=== PATIENT | male | born 1955 | race Caucasian/White ===

== ENCOUNTER → 2016-06-30 | Outpatient (CLI) | payer SELFPAY ==
[2016-06-30 11:24] LABS: ABSOLUTE BASOPHILS # (AUTO) 0.1 10^3/uL (0.0-0.2); ABSOLUTE EOSINOPHILS # (AUTO) 0.1 10^3/uL (0.0-0.6); ABSOLUTE LYMPHOCYTES (AUTO) 2.2 10^3/uL (0.5-4.7); ABSOLUTE MONOCYTES (AUTO) 0.6 10^3/uL (0.1-1.4); ABSOLUTE NEUT (AUTO) 4.8 10^3/uL (1.7-8.2); BASOPHILS % (AUTO) 0.7 % (0-2); EOSINOPHILS % (AUTO) 1.5 % (0-6); HEMATOCRIT 40.9 % (37.9-51.0); HEMOGLOBIN 13.7 g/dL (13.5-17.0); HGB HCT DIFFERENCE 0.2; LYMPHOCYTES % (AUTO) 28.4 % (13-45); MEAN CORPUSCULAR HEMOGLOBIN 28.7 pg (27.0-33.4); MEAN CORPUSCULAR HGB CONC 33.5 g/dL (32.0-36.0); MEAN CORPUSCULAR VOLUME 86 fl (80-97); MONOCYTES % (AUTO) 7.4 % (3-13); RED BLOOD COUNT 4.77 10^6/uL (4.35-5.55); RED CELL DISTRIBUTION WIDTH 13.5 % (11.5-14.0); WHITE BLOOD COUNT 7.7 10^3/uL (4.0-10.5)
[2016-06-30 11:53] LABS: ALANINE AMINOTRANSFERASE 57 U/L (21-72); ALBUMIN 3.8 g/dL (3.5-5.0); ALKALINE PHOSPHATASE 83 U/L (38-126); ANION GAP 11 (5-19); ASPARTATE AMINO TRANSFERASE 62 U/L (17-59); BILIRUBIN,DIRECT 0.4 mg/dL (0.0-0.4); BILIRUBIN,TOTAL 0.7 mg/dL (0.2-1.3); BLOOD UREA NITROGEN 18 mg/dL (7-20); C-REACTIVE PROTEIN 11.5 mg/L (<10.0); CALCIUM 9.4 mg/dL (8.4-10.2); CARBON DIOXIDE 29 mmol/L (22-30); CHLORIDE 103 mmol/L (98-107); CHOLESTEROL 132.13 mg/dL (0-200); CREATININE RESULT 0.82 mg/dL (0.52-1.25); Direct HDL 44 mg/dL (>40); GLUCOSE 94 mg/dL (75-110); POTASSIUM 4.6 mmol/L (3.6-5.0); SODIUM 142.7 mmol/L (137-145); TOTAL PROTEIN 6.8 g/dL (6.3-8.2); TRIGLYCERIDES 90 mg/dL (<150); URIC ACID 2.4 mg/dL (3.5-8.5)
[2016-06-30 12:02] LABS: DIRECT LDL 59 mg/dL (<100)
[2016-06-30 12:41] LABS: ERYTHROCYTE SEDIMENTATION RATE 19 mm/hr (0-20)
== END ==
LOC: OD 10:36
PROVIDERS: ATTEND Family Medicine Geriatric Medicine
DX: R51 Headache (principal); M25.522 Pain in left elbow; M25.521 Pain in right elbow; I10 Essential (primary) hypertension; E78.5 Hyperlipidemia, unspecified; J44.9 Chronic obstructive pulmonary disease, unspecified
CPT/HCPCS: 36415; 70220; 80053; 80061; 84550; 85025; 85652; 86140

== ENCOUNTER 2016-07-05 20:43 | Emergency (ER) | payer MEDICAID ==
--- NOTE | 2016-07-05 23:44 | ER Document Report ---
ED Headache - General Information source: Patient, Relative - TRAVEL OUTSIDE OF THE [place] IN LAST 30 DAYS: No - HPI Patient complains to provider of: Headache Onset: Other - x1 month Timing: Worse Severity: Severe <FRANCINE ARIAS - Last Filed: 07/06/16 05:48> <KAN VIVEROS - Last Filed: 07/15/16 04:18> - General Chief Complaint: Vomiting Stated Complaint: VOMITING,HEADACHE Notes: Patient is a 61-year-old male that presents to the emergency department today with complaints of a headache. Patient states he has had the headache for approximately 1 month stating it originally was intermittent however over the last week it has been constant. Patient states he has had vomiting with this. at bedside states the patient had a decreased appetite. Patient does complain of photophobia. Patient has had a cough as well. Patient was seen by his PCP for this headache and was worked up with sinus x-rays for possible sinus infection which were negative. Patient denies any ear pain and throat pain or history of headaches, history of migraines, recent falls, or diarrhea. 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 (FRANCINE ARIAS) - Related Data Allergies/Adverse Reactions: Penicillins Allergy (Unknown, Verified 12/11/13 09:40) Past Medical History - General Information source: Patient - Social History Smoking Status: Current Every Day Smoker Cigarette use (# per day): Yes Lives with: Spouse/Significant other Family History: Reviewed & Not Pertinent - Past Medical History Cardiac Medical History: Reports: Hx Hypercholesterolemia, Hx Hypertension Neurological Medical History: Reports: Hx Cerebrovascular Accident - With residual right-sided "muscle cramps" upper and lower extremities Surgical Hx: Negative - Immunizations Hx Diphtheria, Pertussis, Tetanus Vaccination: No <FRANCINE ARIAS - Last Filed: 07/06/16 05:48> Review of Systems - Review of Systems Constitutional: No symptoms reported EENT: No symptoms reported Cardiovascular: No symptoms reported Respiratory: See HPI, Cough Gastrointestinal: See HPI, Nausea, Vomiting. denies: Diarrhea Genitourinary: No symptoms reported Male Genitourinary: No symptoms reported Musculoskeletal: No symptoms reported Skin: No symptoms reported Hematologic/Lymphatic: No symptoms reported Neurological/Psychological: See HPI, Headaches -: Yes All other systems reviewed and negative <JOSHUA ARIASON - Last Filed: 07/06/16 05:48> Physical Exam <FRANCINE ARIAS - Last Filed: 07/06/16 05:48> <KAN VIVEROS - Last Filed: 07/15/16 04:18> - Vital signs Vitals: Temp Pulse Resp BP Pulse Ox 98.4 F 78 20 126/68 H 97 07/05/16 20:50 07/05/16 20:50 07/05/16 20:50 07/05/16 20:50 07/05/16 20:50 - Notes Notes: Physical Exam: General: Alert, appears uncomfortable. HEENT: Normocephalic. Atraumatic. PERRL. Extraocular movements intact. Oropharynx clear. Complains of pain with palpation of face and scalp. Neck: Supple. Non-tender. Respiratory: No respiratory distress. Wheezing bilaterally. Cardiovascular: Regular rate and rhythm. Abdominal: Normal Inspection. Non-tender. No distension. Normal Bowel Sounds. Back: Non-tender. No deformity or step off. Extremities: Moves all four extremities. Upper extremities: Normal inspection. Normal ROM. Lower extremities: Normal inspection. No edema. Normal ROM. Neurological: Normal cognition. AAOx4. Normal speech. Positive photophobia. Psychological: Normal affect. Normal Mood. Skin: Warm. Dry. Normal color. (FRANCINE ARIAS) Course - Laboratory Result Diagrams: 07/05/16 23:00 07/05/16 23:00 <JOSHUA ARIASON - Last Filed: 07/06/16 05:48> - Laboratory Result Diagrams: 07/05/16 23:00 07/05/16 23:00 <KAN VIVEROS - Last Filed: 07/15/16 04:18> - Re-evaluation Re-evalutation: 07/06/16 00:39 Patient presents him a problem with a chief complaint of severe headaches that have been going on for a month. Positive for photophobia and increased sensation with the face. He's also had several episodes of vomiting no history of trauma he seen his outpatient primary care physician who ordered sinus x- rays which were negative and started on Bactrim. Has a history of a CVA 4 years ago with some right-sided residual deficits. No recent strokelike symptoms fever or nuchal rigidity. On examination he is awake alert GCS of 15 no neurological deficits or nuchal rigidity blood pressure stable. Laboratory evaluation acute CT scan of the head was pursued. He has 2 separate masses in his brain which the radiologist says may be primary or metastatic. He has no known history of metastatic cancer. He has a parietal lesion which is edematous and a second posterior parietal mass. I spoke with neurosurgery at 1248 who felt the patient could be transferred to the hospitalist service spoke with the hospitalist attending who accepted the transportation. I feel given the nature of the new onset the ongoing headache and the edema associated with it that he needs to be transported by helicopter which I have requested at this point. In addition to that the request for Keppra and steroids per the hospitalist will be given as well. fariha contacted at [phone] for request speak with the neurosurgeon and aeromedical transportation to the facility 07/06/16 01:06 stable no seizure activity, no neurological deficits. given decadron and keppra. signed out Dr. kwok [phone] pending transfer to [facility] (KAN VIVEROS) - Vital Signs Vital signs: Temp Pulse Resp BP Pulse Ox 98.1 F 78 16 138/79 H 98 07/06/16 06:43 07/05/16 20:50 07/06/16 07:01 07/06/16 07:01 07/06/16 07:01 - Laboratory Laboratory results interpreted by me: 07/05/16 07/05/16 23:00 23:00 WBC 11.3 H Hgb 13.1 L RDW 14.2 H Absolute Neutrophils 8.6 H BUN 24 H Glucose 117 H Calcium 10.3 H Critical Care Note - Critical Care Note Total time excluding time spent on procedures (mins): 75 <KAN VIVEROS - Last Filed: 07/15/16 04:18> Discharge <FRANCINE ARIAS - Last Filed: 07/06/16 05:48> <KAN VIVEROS - Last Filed: 07/15/16 04:18> - Discharge Clinical Impression: acute brain mass with headache Condition: Serious Disposition: TERTIARY Scribe Attestation: 07/15/16 04:17 i personally performed the services described in the documentation, reviewed the documentation recorded by the scribe in my presence and it accurately and completely records my words and actions (KAN VIVEROS) Scribe Documentation - Scribe Written by Scribe:: Sylvain Phillips, 07/06/2016 0143 acting as scribe for :: Magdiel <FRANCINE ARIAS - Last Filed: 07/06/16 05:48>
[2016-07-05] MEDS ORDERED: KETOROLAC TROMETHAMINE 60 MG/2 ML SDV IM ONE (23:52)
[2016-07-05] MEDS ORDERED: DIPHENHYDRAMINE HCL 50 MG/ML VIAL IM ONE ×2 (23:53)
[2016-07-05] MEDS ORDERED: METOCLOPRAMIDE HCL INJ/PF 10 MG/2 ML SDV IM ONE (23:54)
[2016-07-06 00:06] LABS: ABSOLUTE BASOPHILS # (AUTO) 0.1 10^3/uL (0.0-0.2); ABSOLUTE LYMPHOCYTES (AUTO) 1.8 10^3/uL (0.5-4.7); ABSOLUTE MONOCYTES (AUTO) 0.9 10^3/uL (0.1-1.4); ABSOLUTE NEUT (AUTO) 8.6 10^3/uL (1.7-8.2); BASOPHILS % (AUTO) 0.5 % (0-2); EOSINOPHILS % (AUTO) 0.4 % (0-6); HEMATOCRIT 39.1 % (37.9-51.0); HEMOGLOBIN 13.1 g/dL (13.5-17.0); HGB HCT DIFFERENCE 0.2; MEAN CORPUSCULAR HEMOGLOBIN 28.8 pg (27.0-33.4); MEAN CORPUSCULAR HGB CONC 33.4 g/dL (32.0-36.0); MEAN CORPUSCULAR VOLUME 86 fl (80-97); MONOCYTES % (AUTO) 7.6 % (3-13); RED BLOOD COUNT 4.54 10^6/uL (4.35-5.55); RED CELL DISTRIBUTION WIDTH 14.2 % (11.5-14.0); SEGMENTED NEUTROPHILS % (AUTO) 75.5 % (42-78); WHITE BLOOD COUNT 11.3 10^3/uL (4.0-10.5)
[2016-07-06 00:07] LABS: ANION GAP 15 (5-19); BLOOD UREA NITROGEN 24 mg/dL (7-20); CALCIUM 10.3 mg/dL (8.4-10.2); CARBON DIOXIDE 26 mmol/L (22-30); CHLORIDE 100 mmol/L (98-107); CREATININE RESULT 0.85 mg/dL (0.52-1.25); GLUCOSE 117 mg/dL (75-110); POTASSIUM 4.9 mmol/L (3.6-5.0); SODIUM 140.7 mmol/L (137-145)
[2016-07-06] MEDS ORDERED: KETOROLAC TROMETHAMINE INJ/PF 30 MG/1 ML SDV IV ONE (00:15)
[2016-07-06] MEDS ORDERED: DIPHENHYDRAMINE HCL 50 MG/ML VIAL IV ONE (00:15)
[2016-07-06] MEDS ORDERED: METOCLOPRAMIDE HCL INJ/PF 10 MG/2 ML SDV IV ONE (00:16)
[2016-07-06] MEDS ORDERED: DEXAMETHASONE SOD PHOS INJ 10 MG/1 ML VIAL IV ONE (01:07)
[2016-07-06] MEDS ORDERED: LEVETIRACETAM INJ/PF 500 MG/5 ML SDV IV ONE (01:07)
[2016-07-06 07:12] VITALS: BP 138/79
[2016-07-06 07:45] LABS: URINE BARBITURATES SCREEN NEGATIVE; URINE METHADONE SCREEN NEGATIVE; URINE OPIATES LOW NEGATIVE; URINE PHENCYCLIDINE SCREEN NEGATIVE
== END 2016-07-06 07:30 | disposition short-term general hospital (02) ==
LOC: ER 20:43
DX: G93.9 Disorder of brain, unspecified (principal); G93.6 Cerebral edema; R51 Headache; R11.2 Nausea with vomiting, unspecified; R63.0 Anorexia; R05 Cough; H53.149 Visual discomfort, unspecified; R20.3 Hyperesthesia; I10 Essential (primary) hypertension; I69.398 Other sequelae of cerebral infarction; M62.838 Other muscle spasm; F17.210 Nicotine dependence, cigarettes, uncomplicated; Z88.0 Allergy status to penicillin
CPT/HCPCS: 99285; 96374; 96375; 36415; 85025; 80048; 80307; 83880; 71020; 70450; J1200; J1885; J2765; J1953; J1100

== ENCOUNTER 2016-11-02 12:05 | Inpatient (IN) | payer MEDICAID ==
[2016-11-02] MEDS ORDERED: ONDANSETRON HCL INJ/PF 4 MG/2 ML SDV IV ONE (12:20)
[2016-11-02] MEDS ORDERED: HYDROMORPHONE HCL INJ/PF 2 MG/ML AMPULE IV ONE ×2 (12:20→13:13)
--- NOTE | 2016-11-02 12:21 | ER Document Report ---
ED Medical Screen (RME) - General Chief Complaint: Abdominal Pain Stated Complaint: ABDOMINAL PAIN Time Seen by Provider: 11/02/16 12:10 Mode of Arrival: Ambulatory Information source: Patient Notes: 61-year-old male history of chemo lung CA presents with complaints of right upper quadrant abdominal pain that started this morning all of a sudden. Patient denies any fevers or chills admits to nausea I have greeted and performed a rapid initial assessment of this patient. A comprehensive ED assessment and evaluation of the patient, analysis of test results and completion of the medical decision making process will be conducted by additional ED providers. PHYSICAL EXAMINATION: GENERAL: Well-appearing, well-nourished and in no acute distress. HEAD: Atraumatic, normocephalic. EYES: Pupils equal round extraocular movements intact, conjunctiva are normal. ENT: Nares patent NECK: Normal range of motion LUNGS: No respiratory distress Musculoskeletal: Normal range of motion abd: RUQ pain NEUROLOGICAL: Normal speech, normal gait. PSYCH: Normal mood, normal affect. SKIN: Warm, Dry, normal turgor, no rashes or lesions noted. TRAVEL OUTSIDE OF THE [place] IN LAST 30 DAYS: No - Related Data Allergies/Adverse Reactions: Penicillins Allergy (Unknown, Verified 11/02/16 12:15) Past Medical History - Social History Frequency of alcohol use: None Drug Abuse: None - Past Medical History Cardiac Medical History: Reports: Hx Hypercholesterolemia, Hx Hypertension Neurological Medical History: Reports: Hx Cerebrovascular Accident - With residual right-sided "muscle cramps" upper and lower extremities Renal/ Medical History: Denies: Hx Peritoneal Dialysis Surgical Hx: Negative - Immunizations Hx Diphtheria, Pertussis, Tetanus Vaccination: No Physical Exam - Vital signs Vitals: Temp Pulse Resp BP Pulse Ox 97.5 F 115 H 20 135/99 H 99 11/02/16 12:06 11/02/16 12:06 11/02/16 12:06 11/02/16 12:06 11/02/16 12:06 Course - Vital Signs Vital signs: Temp Pulse Resp BP Pulse Ox 97.5 F 115 H 20 135/99 H 99 11/02/16 12:06 11/02/16 12:06 11/02/16 12:06 11/02/16 12:06 11/02/16 12:06
[2016-11-02 13:03] LABS: HEMATOCRIT 42.5 % (37.9-51.0); HEMOGLOBIN 14.4 g/dL (13.5-17.0); HGB HCT DIFFERENCE 0.7; MEAN CORPUSCULAR HEMOGLOBIN 34.7 pg (27.0-33.4); MEAN CORPUSCULAR HGB CONC 33.8 g/dL (32.0-36.0); MEAN CORPUSCULAR VOLUME 103 fl (80-97); RED BLOOD COUNT 4.14 10^6/uL (4.35-5.55); RED CELL DISTRIBUTION WIDTH 20.7 % (11.5-14.0); WHITE BLOOD COUNT 21.5 10^3/uL (4.0-10.5)
--- NOTE | 2016-11-02 13:07 | ER Document Report ---
ED GI/ - General Chief Complaint: Abdominal Pain Stated Complaint: ABDOMINAL PAIN Time Seen by Provider: 11/02/16 12:10 Mode of Arrival: Ambulatory Notes: Patient is complaining of severe pain in the right abdomen that began about 3: 30 AM this morning and awakened him from sleep. It has been severe and constant ever since it began. He has been nauseated but has not vomited. Has not had a bowel movement for 2 days. Has not seen blood in his bowel movement. Patient denies any UTI symptoms or blood in his urine. No history of kidney stones. Does not have significant chest congestion or shortness of breath. Has not noted any fever. 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 He has received radiation treatment to his brain and lung and is currently receiving IV chemotherapy at [facility]. TRAVEL OUTSIDE OF THE [place] IN LAST 30 DAYS: No - Related Data Allergies/Adverse Reactions: Penicillins Allergy (Unknown, Verified 11/02/16 12:15) Past Medical History - General Information source: Patient - Social History Smoking Status: Current Every Day Smoker Cigarette use (# per day): Yes Frequency of alcohol use: None Drug Abuse: None Family History: Reviewed & Not Pertinent Patient has suicidal ideation: No Patient has homicidal ideation: No - Past Medical History Cardiac Medical History: Reports: Hx Hypercholesterolemia, Hx Hypertension Denies: Hx Coronary Artery Disease, Hx Heart Attack Neurological Medical History: Reports: Hx Cerebrovascular Accident - With residual right-sided "muscle cramps" upper and lower extremities Endocrine Medical History: Denies: Hx Diabetes Mellitus Type 1, Hx Diabetes Mellitus Type 2 Malignancy Medical History: Reports Hx Lung Cancer - With metastases to brain. GI Medical History: Reports: None Surgical Hx: Negative - Immunizations Hx Diphtheria, Pertussis, Tetanus Vaccination: No Review of Systems - Review of Systems Notes: REVIEW OF SYSTEMS: CONSTITUTIONAL : Denies fever. EENT: Denies eye, ear, nose or mouth or throat pain or other symptoms. CARDIOVASCULAR: Denies chest pain. RESPIRATORY: Denies cough, chest congestion, or shortness of breath. GASTROINTESTINAL: Current complaint of pain in the right abdomen. Denies vomiting, or diarrhea. Has some nausea. GENITOURINARY: Denies difficulty or painful urinating, urinary frequency, blood in urine. MUSCULOSKELETAL: Denies back or neck pain. Denies joint pain or swelling. SKIN: Denies rash or skin lesions. NEUROLOGICAL: Denies LOC or altered mental status. Denies headache. Denies sensory loss or motor deficits. ALL OTHER SYSTEMS REVIEWED AND NEGATIVE. Physical Exam - Vital signs Vitals: Temp Pulse Resp BP Pulse Ox 97.5 F 115 H 20 135/99 H 99 11/02/16 12:06 11/02/16 12:06 11/02/16 12:06 11/02/16 12:06 11/02/16 12:06 Interpretation: Tachycardic - At 115 - Notes Notes: PHYSICAL EXAMINATION: GENERAL: Well-appearing, appears to be in pain. HEAD: Atraumatic, normocephalic. ENT: oropharynx clear without exudates. Moist mucous membranes. NECK: Normal range of motion, supple. LUNGS: Breath sounds sound decreased in the right base. Clear on the left HEART: Regular rate and rhythm without murmurs. ABDOMEN: Patient points to the entire right abdomen as the location of his abdominal pain, but points to the right lower quadrant nearly at McBurney's point when asked to point with only one finger. No guarding or rebound. No masses felt. No bruits heard. BACK: No tenderness throughout entire back. EXTREMITIES: Normal range of motion without pain. NEUROLOGICAL: Normal speech, normal gait. Normal sensory, motor, and reflex exams. Awake, alert, and oriented x3. Cranial nerves normal. PSYCH: Normal mood, normal affect. SKIN: Warm, dry, no rashes. Course - Re-evaluation Re-evalutation: 11/02/16 18:[address] Rangel, surgeon cargo operations agent, and he will be taking the patient to the OR for a bowel perforation. - Vital Signs Vital signs: Temp Pulse Resp BP Pulse Ox 97.5 F 115 H 20 135/99 H 99 11/02/16 12:06 11/02/16 12:06 11/02/16 12:06 11/02/16 12:06 11/02/16 12:06 - Laboratory Result Diagrams: 11/02/16 12:35 11/02/16 12:35 Laboratory results interpreted by me: 11/02/16 11/02/16 12:35 12:35 WBC 21.5 H RBC 4.14 L MCV 103 H MCH 34.7 H RDW 20.7 H Band Neutrophils % 15 H Lymphocytes % (Manual) 6 L Metamyelocytes % 2 H Abs Neuts (Manual) 19.6 H Chloride 97 L BUN 41 H Glucose 143 H Total Protein 5.9 L - Diagnostic Test Radiology reviewed: Image reviewed, Reports reviewed - CT scan of the abdomen and pelvis reveal a bowel perforation with a large collection of gas in the abdomen. Critical Care Note - Critical Care Note Total time excluding time spent on procedures (mins): 60 Discharge - Discharge Clinical Impression: Perforated bowel Condition: Serious Disposition: ADMITTED INPATIENT Admitting Provider: Surgicalist Unit Admitted: OR
[2016-11-02 13:12] LABS: ALANINE AMINOTRANSFERASE 50 U/L (21-72); ALBUMIN 3.8 g/dL (3.5-5.0); ALKALINE PHOSPHATASE 76 U/L (38-126); ANION GAP 14 (5-19); ASPARTATE AMINO TRANSFERASE 37 U/L (17-59); BILIRUBIN,DIRECT 0.4 mg/dL (0.0-0.4); BILIRUBIN,TOTAL 0.5 mg/dL (0.2-1.3); BLOOD UREA NITROGEN 41 mg/dL (7-20); CALCIUM 9.2 mg/dL (8.4-10.2); CARBON DIOXIDE 27 mmol/L (22-30); CHLORIDE 97 mmol/L (98-107); CREATININE RESULT 0.72 mg/dL (0.52-1.25); GLUCOSE 143 mg/dL (75-110); LIPASE 214.9 U/L (23-300); POTASSIUM 4.4 mmol/L (3.6-5.0); SODIUM 137.6 mmol/L (137-145); TOTAL PROTEIN 5.9 g/dL (6.3-8.2)
[2016-11-02] MEDS ORDERED: KETOROLAC TROMETHAMINE INJ/PF 30 MG/1 ML SDV IV ONE (13:13)
[2016-11-02 13:28] LABS: BASOPHILS % (MANUAL) 0 % (0-2); EOSINOPHILS % (MANUAL) 0 % (0-6); LYMPHOCYTES % (MANUAL) 6 % (13-45); TOTAL CELLS COUNTED 100
[2016-11-02 13:29] LABS: ANISOCYTOSIS 2+; POIKILOCYTOSIS SLIGHT; TEAR DROP CELLS SLIGHT
[2016-11-02 13:30] LABS: BAND NEUTROPHILS % (MANUAL) 15 % (3-5); NUCLEATED RED BLOOD CELLS 6 /100 WBC (0)
[2016-11-02] MEDS ORDERED: SUCCINYLCHOLINE CHLORIDE INJ 200 MG/10 ML VIAL ONE (13:37)
[2016-11-02] MEDS ORDERED: VECURONIUM BROMIDE INJ 10 MG VIAL IV ONE (13:37)
[2016-11-02] MEDS ORDERED: LIDOCAINE 2% INJ-PF (20 MG/ML) 10 ML AMPUL ONE ×2 (13:37→18:46)
--- NOTE | 2016-11-02 17:38 | RADIOLOGY REPORT (SQ) ---
EXAM DESCRIPTION: CHEST PA/LAT COMPLETED DATE/TIME: 11/02/2016 5:27 pm REASON FOR STUDY: Lung cancer and short of breath COMPARISON: 07/06/2016. EXAM PARAMETERS: NUMBER OF VIEWS: two views TECHNIQUE: Digital Frontal and Lateral radiographic views of the chest acquired. RADIATION DOSE: NA LIMITATIONS: none FINDINGS: LUNGS AND PLEURA: Right infrahilar mass relatively unchanged. No infiltrates. No pleural effusion or pneumothorax. MEDIASTINUM AND HILAR STRUCTURES: No masses or contour abnormalities. HEART AND VASCULAR STRUCTURES: Heart normal size. No evidence for failure. BONES: No acute findings. HARDWARE: None in the chest. OTHER: No other significant finding. IMPRESSION: NO ACUTE FINDINGS. RIGHT INFRAHILAR MASS APPEARS RELATIVELY UNCHANGED. TECHNICAL DOCUMENTATION: JOB ID: [id number] [employer]- All Rights Reserved
--- NOTE | 2016-11-02 18:15 | RADIOLOGY REPORT (SQ) ---
EXAM DESCRIPTION: CT ABD/PELVIS WITH IV ORAL COMPLETED DATE/TIME: 11/02/2016 5:57 pm REASON FOR STUDY: RLQ pain, Hx right lung CA with brain metastases COMPARISON: None. TECHNIQUE: CT scan of the abdomen and pelvis performed with intravenous and oral contrast using arline erik scanning technique with dynamic intravenous contrast injection. Images reviewed with lung, soft t issue, and bone windows. Reconstructed coronal and sagittal MPR images reviewed. Delayed images for e valuation of the urinary system also acquired. All images stored on PACS. All CT scanners at this facility use dose modulation, iterative reconstruction, and/or weight based d osing when appropriate to reduce radiation dose to as low as reasonably achievable (ALARA). [facility]: Dose Right [facility]: CareDose [facility]: Dose Right [facility]: Teradose 4D [facility]: [place] CONTRAST TYPE AND DOSE: contrast/concentration: Isovue 370.00 mg/ml; Total Contrast Delivered: 66.0 ml; Total Saline Delivered: 65.0 ml RENAL FUNCTION: Creatinine 0.72. RADIATION DOSE: Up-to-date CT equipment and radiation dose reduction techniques were employed. CTDIv ol: 5.2 - 6.8 mGy. DLP: 623 mGy-cm.. LIMITATIONS: None. FINDINGS: LOWER CHEST: Mass in the infrahilar right lung. LIVER: Normal size. No masses. No dilated ducts. SPLEEN: Normal size. No focal lesions. PANCREAS: No masses. No significant calcifications. No adjacent inflammation or peripancreatic fluid collections. Pancreatic duct not dilated. GALLBLADDER: No identified stones by CT criteria. No inflammatory changes to suggest cholecystitis. ADRENAL GLANDS: No significant masses or asymmetry. RIGHT KIDNEY AND URETER: No solid masses. No significant calcification. No hydronephrosis or hydroure ter. LEFT KIDNEY AND URETER: No solid masses. No significant calcification. No hydronephrosis or hydrouret er. AORTA AND VESSELS: No aneurysm. No dissection. Renal arteries, SMA, celiac without stenosis. RETROPERITONEUM: No retroperitoneal adenopathy, hemorrhage or masses. BOWEL AND PERITONEAL CAVITY: Fairly large amount free air in the abdomen as well of some free fluid p rimarily in the upper abdomen and deep and pelvis. No obstruction. No visualized masses. No inflamm atory changes or thickening of bowel wall. APPENDIX: Not visualized. PELVIS: No significant masses. Normal bladder. No free fluid. ABDOMINAL WALL: No masses. No hernias. BONES: No significant or acute findings. OTHER: No other significant finding. IMPRESSION: 1. FREE AIR AND FREE FLUID IN THE ABDOMEN CONSISTENT WITH A PERFORATED VISCUS. NO OBVIOUS SOURCE RADHA ARENT. NO OTHER SIGNIFICANT FINDINGS IN THE ABDOMEN OR PELVIS. 2. MASS IN THE INFRAHILAR RIGHT LUNG SECONDARY TO KNOWN MALIGNANCY. COMMENT: Pertinent findings on the imaging study reported as a CRITICAL RESULT to PARMINDER SANCHEZ MD at18:08 on 11/02/2016. Category of Critical Result: Free intraperitoneal air. TECHNICAL DOCUMENTATION: JOB ID: [id number] Quality ID # [id number]: Final reports with documentation of one or more dose reduction techniques (e.g., Au tomated exposure control, adjustment of the mA and/or kV according to patient size, use of iterative reconstruction technique) 2010 [employer]- All Rights Reserved
[2016-11-02] MEDS ORDERED: FENTANYL CITRATE INJ/PF 250 MCG/5 ML AMPULE ONE (18:46)
[2016-11-02] MEDS ORDERED: PROPOFOL INJ 200 MG/20 ML VIAL IV ONE (18:47)
[2016-11-02] MEDS ORDERED: ONDANSETRON HCL INJ/PF 4 MG/2 ML SDV ONE (18:47)
[2016-11-02] MEDS ORDERED: MIDAZOLAM 2 MG/2 ML INJ ONE ×2 (18:47→20:13)
[2016-11-02] MEDS ORDERED: ACETAMINOPHEN 100 ML IV ONE (18:47)
[2016-11-02] MEDS ORDERED: METRONIDAZOLE 500 MG/NS RTU 100 ML IV ONE (19:21)
[2016-11-02] MEDS ORDERED: CIPROFLOXACIN 400 MG/D5W RTU 400 MG/200 ML RTUPB IV ONE (19:21)
[2016-11-02] MEDS ORDERED: DEXAMETHASONE SOD PHOSPHATE INJ 4 MG/1 ML VIAL ONE (20:26)
--- NOTE | 2016-11-02 20:32 | HISTORY AND PHYSICAL E ---
History and Physical NAME: ROXANNE BACH : 1955 AGE: 61Y ADMITTED: 11/02/2016 ROOM: ED12 CHIEF COMPLAINT: Abdominal pain. HISTORY OF PRESENT ILLNESS: This is a 61-year-old male with a known history of lung CA with mets to the brain, complained of abdominal pain around 3:30 this morning, waking him up. The pain persisted and associated with nausea and went to the emergency room where a CAT scan of the abdomen revealed free air and fluid in the pelvis. No definite source of the perforation was identified. PAST HISTORY: 1. The patient diagnosed with lung CA with brain mets about 3-4 months ago. He had radiation therapy to the brain and undergoing chemotherapy care of [facility]. 2. Cardiac medical history, reports hypercholesterolemia and hypertension. 3. Neurologic history, history of CVA with right-sided muscle cramps in the upper and lower extremities. 4. Endocrine history, denies diabetes mellitus. 5. Malignancy, history of lung cancer with mets to the brain. 6. GI history, reports none. PAST SURGICAL HISTORY: Negative. ALLERGIES: PENICILLIN. REVIEW OF SYSTEMS: Constitutional: Denies any fever. ENT: Denies eye, ear, nose, mouth or throat pain or other symptoms. Cardiovascular: Denies chest pain. Respiratory: Denies cough, chest congestion or shortness of breath. Gastrointestinal: Currently complains of pain in the right side of the abdomen, denies any vomiting but admits to having nausea. Genitourinary: Denies difficulty or painful urination. Musculoskeletal: Denies neck or back pain. Skin: Denies rash or skin lesion. Neurologic: Denies loss of consciousness or altered mental status. All other systems were reviewed and are negative. FAMILY HISTORY: Noncontributory. SOCIAL HISTORY: The patient is a smoker. Denies alcohol or recreational drug use. PHYSICAL EXAMINATION: GENERAL: A well-developed, well-nourished 61-year-old male, alert and oriented, complaining of abdominal pains. HEENT: Neck is supple, no thyromegaly. LUNGS: Clear. HEART: Regular sinus rhythm. ABDOMEN: Soft with tenderness in the right upper quadrant and more tender in the right lower quadrant. EXTREMITIES: No edema. NEUROLOGIC: The patient has normal speech and oriented x3. PSYCHIATRIC: Normal mood and affect. SKIN: Warm and dry. No rashes. IMPRESSION: 1. Perforated bowel. 2. 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 PLAN: 1. Hydrate and start IV antibiotics. 2. For exploratory laparotomy, repair of perforation, possible bowel resection, possible colostomy. DICTATING PHYSICIAN: ONEIDA DANG M.D. [id number] PHY#: [id number] ID: [id number] JOB#: [id number] ACCT: [id number] cc:ONEIDA DANG M.D. > MTDD
[2016-11-02] MEDS ORDERED: ONDANSETRON HCL INJ/PF 4 MG/2 ML SDV IV PRN ×2 (21:01→21:56)
[2016-11-02] MEDS ORDERED: MORPHINE SULFATE 10 MG/ML INJ IV PRN (21:01)
[2016-11-02] MEDS ORDERED: OXYCODONE-ACETAMINOPHEN 5-325 MG TABLET PO PRN ×2 (21:01)
[2016-11-02] MEDS ORDERED: MEPERIDINE HCL/PF INJ 25 MG/1 ML DISP.SYRIN IV PRN (21:01)
[2016-11-02] MEDS ORDERED: PROMETHAZINE HCL INJ 25 MG/1 ML VIAL IV PRN ×2 (21:01)
[2016-11-02] MEDS ORDERED: FENTANYL CITRATE INJ/PF 100 MCG/2 ML AMPUL IV PRN ×3 (21:01)
[2016-11-02] MEDS ORDERED: DIPHENHYDRAMINE HCL 50 MG/ML VIAL IV PRN (21:01)
[2016-11-02] MEDS ORDERED: DEXTROSE 40% GEL 15 GM TUBE PO PRN ×2 (21:56)
[2016-11-02] MEDS ORDERED: GLUCAGON,HUMAN RECOMB 1 MG INJ SUBCUT PRN (21:56)
[2016-11-02] MEDS ORDERED: DEXTROSE 50%-WATER 25 GM/50 ML DISP.SYRIN IV PRN ×2 (21:56)
[2016-11-02] MEDS ORDERED: PHARMACY COMMUNICATION ORDER MC NR (22:00)
[2016-11-02] MEDS ORDERED: PROPOFOL 100 ML IV ONE (22:19)
--- NOTE | 2016-11-02 22:24 | RADIOLOGY REPORT (SQ) ---
EXAM DESCRIPTION: CHEST SINGLE VIEW COMPLETED DATE/TIME: 11/02/2016 10:17 pm REASON FOR STUDY: endotracheal tube placement COMPARISON: 11/02/2016. EXAM PARAMETERS: NUMBER OF VIEWS: One view. TECHNIQUE: Single frontal radiographic view of the chest acquired. RADIATION DOSE: NA LIMITATIONS: None. FINDINGS: LUNGS AND PLEURA: No opacities, masses or pneumothorax. No pleural effusion. MEDIASTINUM AND HILAR STRUCTURES: No masses. Contour normal. HEART AND VASCULAR STRUCTURES: Heart normal in size. Normal vasculature. BONES: No acute findings. HARDWARE: Endotracheal tube with the tip located 3 cm proximal to the lópez. Nasogastric tube with the tip in the stomach. OTHER: No other significant finding. IMPRESSION: SUPPORT DEVICES IN SATISFACTORY POSITION. NO ACUTE RADIOGRAPHIC FINDING IN THE CHEST. TECHNICAL DOCUMENTATION: JOB ID: [id number]
[2016-11-02] MEDS ORDERED: DEXTROSE 40% GEL 15 GM TUBE NG PRN ×2 (22:30)
--- NOTE | 2016-11-02 22:59 | RADIOLOGY REPORT (SQ) ---
EXAM DESCRIPTION: KUB/ABDOMEN (SINGLE VIEW) COMPLETED DATE/TIME: 11/02/2016 10:47 pm REASON FOR STUDY: Check Placement of NG Tube COMPARISON: None. NUMBER OF VIEWS: One view. TECHNIQUE: Supine radiographic image of the abdomen acquired. LIMITATIONS: None. FINDINGS: BOWEL GAS PATTERN: Normal bowel gas pattern. Residual CT contrast. No dilated loops. CALCIFICATIONS: No suspicious calcifications. SOFT TISSUES: No gross mass or suggestion of organomegaly. HARDWARE: Nasogastric tube with the tip in the distal stomach. Midline skin soha. BONES: No acute fracture. No worrisome bone lesions. OTHER: No other significant finding. IMPRESSION: NASOGASTRIC TUBE WITH THE TIP IN THE DISTAL STOMACH. NO RADIOGRAPHIC EVIDENCE FOR ACUTE ABDOMINAL DISEASE. TECHNICAL DOCUMENTATION: JOB ID: [id number] [employer]- All Rights Reserved
[2016-11-02] MEDS: MORPHINE SULFATE 10 MG/ML INJ IV PRN (23:07)
[2016-11-02] MEDS: NORMAL SALINE 1000 ML 1,000 ML IV PRN (23:08)
--- NOTE | 2016-11-02 23:31 | EKG REPORT ---
SEVERITY:- BORDERLINE ECG - SINUS RHYTHM BORDERLINE INFERIOR Q WAVES : Confirmed by: Zuleyma Casillas 02-Nov-2016 23:29:55
[2016-11-03] MEDS: PANTOPRAZOLE SODIUM 40 MG VIAL IV SCH ×3 (01:48→21:05)
--- NOTE | 2016-11-03 02:07 | OPERATIVE REPORT E ---
Operative Report NAME: ROXANNE BACH : 1955 AGE: 61Y DATE OF SURGERY: 11/02/2016 ROOM: 603 PREOPERATIVE DIAGNOSIS: Perforated bowel. POSTOPERATIVE DIAGNOSIS: Perforated gastric ulcer. PROCEDURE PERFORMED: Repair of perforated gastric ulcer with omental patch. SURGEON: ONEIDA DANG M.D. ANESTHESIA: General. 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 with right-sided abdominal pains. CT scan of the abdomen in the ER revealed perforated bowel but unable to localize the possible site. Patient was tender in the right upper quadrant and the right lower quadrant. DESCRIPTION OF PROCEDURE: After adequate general anesthesia, the abdomen was then prepped and draped in the usual sterile fashion. The patient was placed in supine position. After appropriate timeout, a midline incision was made just below the umbilicus. The abdominal cavity was then entered. There was a small amount of air that extruded out, as well as a lot of fluid, somewhat cloudy. On exploration, there appeared to be a perforation on the cephalic portion of the gastric area, close to the pylorus and close to the liver. The perforation roughly measured about 8 mm. Three sutures of 2-0 silk were placed to close the perforation. Following this, the abdominal cavity was irrigated with at least 8 L of saline until the return flow was clear. The small bowel was then tracked from the ileum up to the ligament of Treitz, and noted to be intact. There was some exudates along the ileum that were partially mechanically removed. The bowel does not look dilated. Also, the omentum was adherent to the sigmoid colon with a single band, and then this was divided with cautery, allowing the omentum to be pulled up over the repaired site. The omentum was subsequently used as a patch over the repaired perforation site, anchoring the omentum surrounding the perforation with 2-0 Vicryl sutures, placing about 7 or 8. This was made sure that the defect in the omentum and the stomach was partially closed, preventing any internal herniation. Also at the same time, the NG tube was positioned just above the perforation. The rest of the bowel was intact. Large bowel noted to be normal except for a large amount of firm feces. The gallbladder appeared to be normal but a slightly thickened wall since it is close to the perforation. The liver appears to be just slightly firm, possible start of cirrhosis. Following this, the fascia was then closed with running suture using #1 PDS, starting on both ends and meeting and tying them together just above the umbilicus. The skin was then closed with soha. Needle, instrument, and sponge counts were all correct. Estimated blood loss was about 100 mL. Sterile dressings were placed over the operative site. Patient then brought to the intensive care unit, still intubated, in guarded condition. DICTATING PHYSICIAN: ONEIDA DANG M.D. [id number] PHY#: [id number] ID: [id number] JOB#: [id number] ACCT: [id number] cc:ONEIDA DANG M.D. > MTDD
[2016-11-03] MEDS ORDERED: PROPOFOL 100 ML IV ONE (04:15)
[2016-11-03] MEDS: MORPHINE SULFATE 10 MG/ML INJ IV PRN ×4 (04:30→17:43)
[2016-11-03] MEDS: PROPOFOL 100 ML IV PRN ×3 (04:33→15:14)
[2016-11-03] MEDS: METRONIDAZOLE 500 MG/NS RTU 100 ML IV SCH ×3 (05:57→22:17)
[2016-11-03 06:18] LABS: ANION GAP 6 (5-19); BLOOD UREA NITROGEN 39 mg/dL (7-20); CALCIUM 7.9 mg/dL (8.4-10.2); CARBON DIOXIDE 26 mmol/L (22-30); CHLORIDE 102 mmol/L (98-107); CREATININE RESULT 0.56 mg/dL (0.52-1.25); GLUCOSE 118 mg/dL (75-110); SODIUM 133.6 mmol/L (137-145)
[2016-11-03 06:22] LABS: HEMATOCRIT 34.2 % (37.9-51.0); HGB HCT DIFFERENCE 0.6; MEAN CORPUSCULAR HGB CONC 33.9 g/dL (32.0-36.0); MEAN CORPUSCULAR VOLUME 103 fl (80-97); RED BLOOD COUNT 3.32 10^6/uL (4.35-5.55); RED CELL DISTRIBUTION WIDTH 20.2 % (11.5-14.0); WHITE BLOOD COUNT 11.1 10^3/uL (4.0-10.5)
[2016-11-03 06:23] LABS: HEMOGLOBIN 11.6 g/dL (13.5-17.0)
[2016-11-03 06:28] LABS: BAND NEUTROPHILS % (MANUAL) 22 % (3-5); BASOPHILS % (MANUAL) 0 % (0-2); EOSINOPHILS % (MANUAL) 0 % (0-6); LYMPHOCYTES % (MANUAL) 6 % (13-45); TOTAL CELLS COUNTED 100
[2016-11-03 06:31] LABS: TOXIC GRANULATION 1+; TOXIC VACUOLATION PRESENT
[2016-11-03 06:32] LABS: ANISOCYTOSIS 2+; BURR CELLS 1+; OVALOCYTES 1+; POIKILOCYTOSIS 1+; POLYCHROMASIA SLIGHT; TEAR DROP CELLS SLIGHT
[2016-11-03 06:33] LABS: PLATELET CLUMPS PRESENT
[2016-11-03 07:38] LABS: ARTERIAL BLOOD BASE EXCESS -1.3 mmol/L; ARTERIAL BLOOD O2 SATURATION 97.7 % (94-98)
--- NOTE | 2016-11-03 09:44 | PDOC CONSULTATION ---
Consultation Consult Date: 11/03/16 Attending physician:: ONEIDA DANG Consult reason:: resp failure History of Present Illness Admission Date/PCP: 11/02/16 21:56 History of Present Illness: all information from chart as patient intubated no family at bedside.ROXANNE BACH is a 61 year old male presented with abdominal pain now s/p repair of perforated viscous;he has 80 pyhx and was recently diagnosed with lung cancer with brain mets.He was reportedly having increased confusion. Past Medical History Cardiac Medical History: Reports: Hyperlipidema, Hypertension Denies: Coronary Artery Disease, Myocardial Infarction Endocrine Medical History: Denies: Diabetes Mellitus Type 1, Diabetes Mellitus Type 2 Malignancy Medical History: Reports: Lung Cancer - With metastases to brain. GI Medical History: Reports: None Social History Information Source: [facility] Records Smoking Status: Current Every Day Smoker Cigarettes Packs Per Day: 2 Number of Years Smokin Frequency of Alcohol Use: Social Hx Recreational Drug Use: No Drugs: Marijuana - Advance Directive Resuscitation Status: Full Code Family History Family History: Reviewed & Not Pertinent Parental Family History Reviewed: No Children Family History Reviewed: No Sibling(s) Family History Reviewed.: No Medication/Allergy Home Medications: Dexamethasone 4 mg PO ASDIR PRN 11/03/16 Fludrocortisone Acetate [Florinef 0.1 mg Tablet] 0.1 mg PO DAILY 11/03/16 Gabapentin [Neurontin] 600 mg PO BID 11/03/16 Hydromorphone HCl [Dilaudid] 4 mg PO Q3H PRN 11/03/16 Naproxen 500 mg PO Q12H PRN 11/03/16 Pravastatin Sodium 20 mg PO QHS 11/03/16 Prochlorperazine Maleate [Compazine 10 mg Tablet] 10 mg PO Q6H PRN 11/03/16 Tiotropium [place] [Spiriva Handihaler 18 mcg/dose (30 Dose)] 1 cap IH DAILY 06/16 Allergies/Adverse Reactions: Penicillins Allergy (Unknown, Verified 11/02/16 12:15) Review of Systems ROS unobtainable: Due to endotracheal tube Physical Exam Vital Signs: Temp Pulse Resp BP Pulse Ox 97.9 F 57 L 12 130/81 H 100 11/03/16 07:46 11/03/16 07:48 11/03/16 07:46 11/03/16 07:46 11/03/16 08:00 Intake & Output 11/02/16 11/03/16 11/04/16 06:59 06:59 06:59 Intake Total 1110 Output Total 615 75 Balance 495 -75 Weight 62.9 kg General appearance: PRESENT: no acute distress, disheveled, thin, well-developed Head exam: PRESENT: atraumatic, normocephalic Eye exam: PRESENT: conjunctiva pale Mouth exam: PRESENT: dry mucosa, neck supple, tongue midline, other - ET tube in place Neck exam: ABSENT: carotid bruit, JVD, lymphadenopathy, thyromegaly Respiratory exam: PRESENT: decreased breath sounds, prolonged expiratory phas, rhonchi, symmetrical. ABSENT: crackles, rales, retraction, stridor, tachypnea, unlabored, wheezes Cardiovascular exam: PRESENT: RRR, +S1, +S2. ABSENT: bradycardia, irregular rhythm, tachycardia Pulses: PRESENT: normal radial pulses GI/Abdominal exam: PRESENT: other - midline surgical scar Rectal exam: PRESENT: deferred Gentrourinary exam: PRESENT: indwelling catheter Musculoskeletal exam: PRESENT: normal inspection Skin exam: PRESENT: dry, warm Results Laboratory Results: 11/03/16 05:27 11/03/16 05:27 11/03/16 11/03/16 11/03/16 05:27 05:27 05:27 WBC 11.1 H RBC 3.32 L Hgb 11.6 L D Hct 34.2 L MCV 103 H MCH 35.0 H MCHC 33.9 RDW 20.2 H Plt Count 176 Seg Neutrophils % Not Reportable Lymphocytes % Not Reportable Monocytes % Not Reportable Eosinophils % Not Reportable Basophils % Not Reportable Absolute Neutrophils Not Reportable Absolute Lymphocytes Not Reportable Absolute Monocytes Not Reportable Absolute Eosinophils Not Reportable Absolute Basophils Not Reportable Carbonic Acid HCO3/H2CO3 Ratio ABG pH ABG pCO2 ABG pO2 ABG HCO3 ABG O2 Saturation ABG Base Excess FiO2 Sodium 133.6 L Potassium 5.0 Chloride 102 Carbon Dioxide 26 Anion Gap 6 BUN 39 H Creatinine 0.56 Est GFR ( Amer) > 60 Est GFR (Non-Af Amer) > 60 Glucose 118 H Calcium 7.9 L Magnesium 3.2 H 11/03/16 07:25 WBC RBC Hgb Hct MCV MCH MCHC RDW Plt Count Seg Neutrophils % Lymphocytes % Monocytes % Eosinophils % Basophils % Absolute Neutrophils Absolute Lymphocytes Absolute Monocytes Absolute Eosinophils Absolute Basophils Carbonic Acid 0.95 L HCO3/H2CO3 Ratio 22:1 ABG pH 7.46 H ABG pCO2 31.7 L ABG pO2 96.5 ABG HCO3 21.8 ABG O2 Saturation 97.7 ABG Base Excess -1.3 FiO2 50% Sodium Potassium Chloride Carbon Dioxide Anion Gap BUN Creatinine Est GFR ( Amer) Est GFR (Non-Af Amer) Glucose Calcium Magnesium Impressions: Abdomen/Pelvis CT 11/02/16 00:00 IMPRESSION: 1. FREE AIR AND FREE FLUID IN THE ABDOMEN CONSISTENT WITH A PERFORATED VISCUS. NO OBVIOUS SOURCE APPARENT. NO OTHER SIGNIFICANT FINDINGS IN THE ABDOMEN OR PELVIS. 2. MASS IN THE INFRAHILAR RIGHT LUNG SECONDARY TO KNOWN MALIGNANCY. KUB X-Ray 11/02/16 22:00 IMPRESSION: NASOGASTRIC TUBE WITH THE TIP IN THE DISTAL STOMACH. NO RADIOGRAPHIC EVIDENCE FOR ACUTE ABDOMINAL DISEASE. Chest X-Ray 11/02/16 22:04 IMPRESSION: SUPPORT DEVICES IN SATISFACTORY POSITION. NO ACUTE RADIOGRAPHIC FINDING IN THE CHEST. Assessment & Plan - Diagnosis (1) Pulmonary emphysema Qualifiers: Emphysema type: centrilobular Qualified Code(s): J43.2 - Centrilobular emphysema Is this a current diagnosis for this admission?: Yes (2) Brain lesion Is this a current diagnosis for this admission?: Yes (3) Perforated bowel Is this a current diagnosis for this admission?: Yes - Time Critical Time spent with patient: 35 or more minutes - 55 min
[2016-11-03] MEDS: CIPROFLOXACIN 400 MG/D5W RTU 400 MG/200 ML RTUPB IV SCH ×2 (10:50→21:06)
[2016-11-03] MEDS: NORMAL SALINE 1000 ML 1,000 ML IV PRN (11:42)
--- NOTE | 2016-11-03 12:06 | PDOC PROGRESS REPORT ---
Subjective Progress Note for:: 11/03/16 Subjective:: Patient tolerated his first not post surgery in the ICU, intubated, sedated, hemodynamically stable, decent urine output. Physical Exam Vital Signs: Temp Pulse Resp BP Pulse Ox 97.7 F 72 22 H 111/70 100 11/03/16 10:00 11/03/16 10:00 11/03/16 10:00 11/03/16 10:00 11/03/16 11:48 Intake & Output 11/02/16 11/03/16 11/04/16 06:59 06:59 06:59 Intake Total 1110 Output Total 615 185 Balance 495 -185 Weight 62.9 kg General appearance: PRESENT: no acute distress - Pharmacologically sedated. Respiratory exam: PRESENT: other - Some rhonchi bilaterally GI/Abdominal exam: PRESENT: other - Dressing dry, intact, no leakage Results Laboratory Results: 11/03/16 05:27 11/03/16 05:27 11/03/16 11/03/16 11/03/16 05:27 05:27 05:27 WBC 11.1 H RBC 3.32 L Hgb 11.6 L D Hct 34.2 L MCV 103 H MCH 35.0 H MCHC 33.9 RDW 20.2 H Plt Count 176 Seg Neutrophils % Not Reportable Lymphocytes % Not Reportable Monocytes % Not Reportable Eosinophils % Not Reportable Basophils % Not Reportable Absolute Neutrophils Not Reportable Absolute Lymphocytes Not Reportable Absolute Monocytes Not Reportable Absolute Eosinophils Not Reportable Absolute Basophils Not Reportable Carbonic Acid HCO3/H2CO3 Ratio ABG pH ABG pCO2 ABG pO2 ABG HCO3 ABG O2 Saturation ABG Base Excess FiO2 Sodium 133.6 L Potassium 5.0 Chloride 102 Carbon Dioxide 26 Anion Gap 6 BUN 39 H Creatinine 0.56 Est GFR ( Amer) > 60 Est GFR (Non-Af Amer) > 60 Glucose 118 H Calcium 7.9 L Magnesium 3.2 H 11/03/16 07:25 WBC RBC Hgb Hct MCV MCH MCHC RDW Plt Count Seg Neutrophils % Lymphocytes % Monocytes % Eosinophils % Basophils % Absolute Neutrophils Absolute Lymphocytes Absolute Monocytes Absolute Eosinophils Absolute Basophils Carbonic Acid 0.95 L HCO3/H2CO3 Ratio 22:1 ABG pH 7.46 H ABG pCO2 31.7 L ABG pO2 96.5 ABG HCO3 21.8 ABG O2 Saturation 97.7 ABG Base Excess -1.3 FiO2 50% Sodium Potassium Chloride Carbon Dioxide Anion Gap BUN Creatinine Est GFR ( Amer) Est GFR (Non-Af Amer) Glucose Calcium Magnesium Impressions: Abdomen/Pelvis CT 11/02/16 00:00 IMPRESSION: 1. FREE AIR AND FREE FLUID IN THE ABDOMEN CONSISTENT WITH A PERFORATED VISCUS. NO OBVIOUS SOURCE APPARENT. NO OTHER SIGNIFICANT FINDINGS IN THE ABDOMEN OR PELVIS. 2. MASS IN THE INFRAHILAR RIGHT LUNG SECONDARY TO KNOWN MALIGNANCY. KUB X-Ray 11/02/16 22:00 IMPRESSION: NASOGASTRIC TUBE WITH THE TIP IN THE DISTAL STOMACH. NO RADIOGRAPHIC EVIDENCE FOR ACUTE ABDOMINAL DISEASE. Chest X-Ray 11/02/16 22:04 IMPRESSION: SUPPORT DEVICES IN SATISFACTORY POSITION. NO ACUTE RADIOGRAPHIC FINDING IN THE CHEST. Assessment & Plan - Diagnosis (1) Gastric ulcer, acute with perforation Is this a current diagnosis for this admission?: Yes Plan: Is postoperative day 1 status post exploratory laparotomy, Ra patch repair of gastric perforation in the prepyloric area, no drain, hemodynamically stable , ICU intubated with moderate hypervolemia Plan: 1. We will start weaning from ventilator as tolerated; Dr. Coffey, embroiderer, consulted 2. We will get hospitalist on board and assist with medical management 3. Will discuss patient's CODE STATUS with family to make sure patient's expectations and clinical team management plans are all in alignment.
[2016-11-03 12:09] LABS: ARTERIAL BLOOD BASE EXCESS 3.3 mmol/L; ARTERIAL BLOOD O2 SATURATION 96.7 % (94-98)
[2016-11-03] MEDS ORDERED: CLINDAMYCIN 900 MG/D5W RTU 50 ML IV SCH (14:15)
[2016-11-03] MEDS ORDERED: IMIPENEM/CILASTATIN SODIUM 1,000 MG in NORMAL SALINE 250 ML IV SCH (14:15)
[2016-11-03] MEDS ORDERED: VANCOMYCIN HCL 0 MG in DEXTROSE 5%-WATER 250 ML IV NR (14:15)
[2016-11-03] MEDS ORDERED: LORAZEPAM INJ 2 MG/1 ML VIAL ONE (18:08)
[2016-11-03] MEDS ORDERED: NORMAL SALINE 1000 ML 1,000 ML IV PRN (18:12)
[2016-11-03] MEDS ORDERED: FENTANYL 50 MCG/HR PATCH.TD72 TD ONE (18:30)
[2016-11-03] MEDS ORDERED: NORMAL SALINE 1000 ML 1,000 ML IV ONE (18:30)
[2016-11-04] MEDS: PROPOFOL 100 ML IV PRN (01:34)
[2016-11-04] MEDS: LORAZEPAM INJ 2 MG/1 ML VIAL IV PRN ×3 (02:13→19:41)
[2016-11-04] MEDS: NORMAL SALINE 1000 ML 1,000 ML IV PRN ×2 (02:48→10:37)
[2016-11-04 04:11] LABS: HEMATOCRIT 28.5 % (37.9-51.0); HEMOGLOBIN 9.8 g/dL (13.5-17.0); HGB HCT DIFFERENCE 0.9; MEAN CORPUSCULAR HEMOGLOBIN 35.1 pg (27.0-33.4); MEAN CORPUSCULAR HGB CONC 34.3 g/dL (32.0-36.0); MEAN CORPUSCULAR VOLUME 103 fl (80-97); RED BLOOD COUNT 2.78 10^6/uL (4.35-5.55); RED CELL DISTRIBUTION WIDTH 20.2 % (11.5-14.0); WHITE BLOOD COUNT 9.6 10^3/uL (4.0-10.5)
[2016-11-04 04:12] LABS: ALANINE AMINOTRANSFERASE 77 U/L (21-72); ALBUMIN 2.1 g/dL (3.5-5.0); ALKALINE PHOSPHATASE 42 U/L (38-126); ASPARTATE AMINO TRANSFERASE 45 U/L (17-59); BILIRUBIN,DIRECT 0.3 mg/dL (0.0-0.4); BILIRUBIN,TOTAL 0.4 mg/dL (0.2-1.3); BLOOD UREA NITROGEN 24 mg/dL (7-20); CALCIUM 7.7 mg/dL (8.4-10.2); CREATININE RESULT 0.51 mg/dL (0.52-1.25); GLUCOSE 80 mg/dL (75-110); MAGNESIUM 2.3 mg/dL (1.6-2.3); POTASSIUM 4.1 mmol/L (3.6-5.0)
[2016-11-04 04:23] LABS: CARBON DIOXIDE 27 mmol/L (22-30); CHLORIDE 106 mmol/L (98-107); SODIUM 136.4 mmol/L (137-145)
[2016-11-04 04:25] LABS: BAND NEUTROPHILS % (MANUAL) 8 % (3-5); BASOPHILS % (MANUAL) 0 % (0-2); EOSINOPHILS % (MANUAL) 0 % (0-6); LYMPHOCYTES % (MANUAL) 8 % (13-45); TOTAL CELLS COUNTED 100
[2016-11-04 04:27] LABS: ANION GAP 3 (5-19)
[2016-11-04 04:29] LABS: POLYCHROMASIA SLIGHT; TOXIC GRANULATION SLIGHT; TOXIC VACUOLATION PRESENT
[2016-11-04 04:30] LABS: ANISOCYTOSIS 2+; OVALOCYTES SLIGHT; POIKILOCYTOSIS SLIGHT; TEAR DROP CELLS SLIGHT
[2016-11-04] MEDS: METRONIDAZOLE 500 MG/NS RTU 100 ML IV SCH ×3 (05:10→22:56)
[2016-11-04 05:28] LABS: ARTERIAL BLOOD BASE EXCESS 1.6 mmol/L; ARTERIAL BLOOD O2 SATURATION 96.1 % (94-98)
--- NOTE | 2016-11-04 06:38 | RADIOLOGY REPORT (SQ) ---
EXAM DESCRIPTION: CHEST SINGLE VIEW COMPLETED DATE/TIME: 11/04/2016 6:20 am REASON FOR STUDY: resp failure COMPARISON: Chest x-ray 11/02/2016. CT abdomen and pelvis 11/02/2016. EXAM PARAMETERS: NUMBER OF VIEWS: One view TECHNIQUE: Single frontal radiograph of the chest. RADIATION DOSE: N/A LIMITATIONS: None. FINDINGS: TEMPORARY SUPPORT DEVICES:ETT in expected location. NG tube courses below the left jeannette-d iaphragm in to the stomach. LUNGS AND PLEURA: No consolidation, pleural effusion or pneumothorax. MEDIASTINUM AND HILAR STRUCTURES: The right infrahilar mass seen on prior CT abdomen and pelvis is no t resolved by x-ray. HEART AND VASCULAR STRUCTURES: Heart size normal. Normal vascularity. BONES: No acute findings. IMPRESSION: No acute radiographic findings in the chest. Support devices in expected locations. TECHNICAL DOCUMENTATION: JOB ID: [id number] [employer]- All Rights Reserved
[2016-11-04] MEDS ORDERED: DEXAMETHASONE SOD PHOSPHATE INJ 4 MG/1 ML VIAL ONE (08:54)
--- NOTE | 2016-11-04 09:23 | PROGRESS NOTE E ---
Progress Note NAME: ROXANNE BACH : 1955 AGE: 61Y DATE: 11/04/2016 ROOM: 603 SUBJECTIVE: This is his second postop day post repair of gastric perforation with omental patch. OBJECTIVE: Patient is still intubated. He remains hemodynamically stable. There is practically no drainage from the NGT. His abdomen is soft and the incision is clean and dry. His white count yesterday was 9.6 and hemoglobin 9.8. His electrolytes are essentially normal. BUN is down to 24 from 39 and creatinine 0.51. His LFTs suggest slightly elevated ALT to 77; the rest are normal. The albumin level on 11/03/2016 was only 2.1. PLAN: 1. Extubate this morning. 2. May need to start him on TPN and continue with IV antibiotic therapy and hydration. DICTATING PHYSICIAN: ONEIDA DANG M.D. [id number] PHY#: [id number] ID: [id number] JOB#: [id number] ACCT: [id number] cc: >
[2016-11-04] MEDS ORDERED: ONDANSETRON HCL INJ/PF 4 MG/2 ML SDV IV PRN (09:30)
[2016-11-04] MEDS ORDERED: FLUDROCORTISONE ACETATE 0.1 MG TABLET PO SCH (10:00)
[2016-11-04] MEDS ORDERED: DEXAMETHASONE SOD PHOSPHATE INJ 4 MG/1 ML VIAL IV SCH (10:00)
--- NOTE | 2016-11-04 10:18 | PDOC PROGRESS REPORT ---
Subjective Progress Note for:: 11/04/16 Subjective:: intubated responds to commands Physical Exam Vital Signs: Temp Pulse Resp BP Pulse Ox 98.2 F 68 18 165/98 H 100 11/04/16 04:00 11/04/16 05:50 11/04/16 06:22 11/04/16 06:22 11/04/16 06:22 Intake & Output 11/03/16 11/04/16 11/05/16 06:59 06:59 06:59 Intake Total 1110 4376 Output Total 615 2840 Balance 495 1536 Weight 62.9 kg 65.1 kg General appearance: PRESENT: cooperative, disheveled, thin Head exam: PRESENT: normocephalic Eye exam: PRESENT: conjunctiva pale Mouth exam: PRESENT: dry mucosa, neck supple, tongue midline, other - ET tube Neck exam: ABSENT: carotid bruit, JVD, lymphadenopathy, thyromegaly Respiratory exam: PRESENT: decreased breath sounds, prolonged expiratory phas, symmetrical, unlabored. ABSENT: accessory muscle use, chest wall tenderness, crackles, retraction, rhonchi, stridor, wheezes Cardiovascular exam: PRESENT: RRR, +S1, +S2. ABSENT: bradycardia, irregular rhythm, rubs Pulses: PRESENT: normal radial pulses GI/Abdominal exam: PRESENT: other - s/p surgery Rectal exam: PRESENT: deferred Gentrourinary exam: PRESENT: indwelling catheter Musculoskeletal exam: PRESENT: normal inspection Neurological exam: PRESENT: awake Skin exam: PRESENT: dry, warm Results Laboratory Results: 11/04/16 03:44 11/04/16 03:44 11/03/16 11/03/16 11/04/16 05:27 11:50 03:44 WBC 9.6 RBC 2.78 L Hgb 9.8 L Hct 28.5 L MCV 103 H MCH 35.1 H MCHC 34.3 RDW 20.2 H Plt Count 163 Seg Neutrophils % Not Reportable Lymphocytes % Not Reportable Monocytes % Not Reportable Eosinophils % Not Reportable Basophils % Not Reportable Absolute Neutrophils Not Reportable Absolute Lymphocytes Not Reportable Absolute Monocytes Not Reportable Absolute Eosinophils Not Reportable Absolute Basophils Not Reportable Carbonic Acid 1.25 HCO3/H2CO3 Ratio 22:1 ABG pH 7.44 ABG pCO2 41.4 ABG pO2 84.2 ABG HCO3 27.7 H ABG O2 Saturation 96.7 ABG Base Excess 3.3 FiO2 30% Sodium Potassium Chloride Carbon Dioxide Anion Gap BUN Creatinine Est GFR ( Amer) Est GFR (Non-Af Amer) Glucose Calcium Magnesium 3.2 H Total Bilirubin AST ALT Alkaline Phosphatase Total Protein Albumin 11/04/16 11/04/16 03:44 05:15 WBC RBC Hgb Hct MCV MCH MCHC RDW Plt Count Seg Neutrophils % Lymphocytes % Monocytes % Eosinophils % Basophils % Absolute Neutrophils Absolute Lymphocytes Absolute Monocytes Absolute Eosinophils Absolute Basophils Carbonic Acid 0.98 L HCO3/H2CO3 Ratio 25:1 ABG pH 7.49 H ABG pCO2 32.7 L ABG pO2 74.2 L ABG HCO3 24.5 ABG O2 Saturation 96.1 ABG Base Excess 1.6 FiO2 30% Sodium 136.4 L Potassium 4.1 Chloride 106 Carbon Dioxide 27 Anion Gap 3 L BUN 24 H Creatinine 0.51 L Est GFR ( Amer) > 60 Est GFR (Non-Af Amer) > 60 Glucose 80 Calcium 7.7 L Magnesium 2.3 Total Bilirubin 0.4 AST 45 ALT 77 H Alkaline Phosphatase 42 Total Protein 4.0 L Albumin 2.1 L Impressions: Abdomen/Pelvis CT 11/02/16 00:00 IMPRESSION: 1. FREE AIR AND FREE FLUID IN THE ABDOMEN CONSISTENT WITH A PERFORATED VISCUS. NO OBVIOUS SOURCE APPARENT. NO OTHER SIGNIFICANT FINDINGS IN THE ABDOMEN OR PELVIS. 2. MASS IN THE INFRAHILAR RIGHT LUNG SECONDARY TO KNOWN MALIGNANCY. KUB X-Ray 11/02/16 22:00 IMPRESSION: NASOGASTRIC TUBE WITH THE TIP IN THE DISTAL STOMACH. NO RADIOGRAPHIC EVIDENCE FOR ACUTE ABDOMINAL DISEASE. Chest X-Ray 11/04/16 06:00 IMPRESSION: No acute radiographic findings in the chest. Support devices in expected locations. Assessment & Plan - Diagnosis (1) Pulmonary emphysema Qualifiers: Emphysema type: centrilobular Qualified Code(s): J43.2 - Centrilobular emphysema Is this a current diagnosis for this admission?: Yes Plan: agitated otherwise good for extubation will extubate (2) Brain lesion Is this a current diagnosis for this admission?: Yes (3) Perforated bowel Is this a current diagnosis for this admission?: Yes - Time Critical Time spent with patient: 35 or more minutes - 55 min extubation
[2016-11-04] MEDS: PANTOPRAZOLE SODIUM 40 MG VIAL IV SCH ×2 (10:38→22:56)
[2016-11-04] MEDS: CIPROFLOXACIN 400 MG/D5W RTU 400 MG/200 ML RTUPB IV SCH ×2 (10:41→22:56)
[2016-11-04 12:01] LABS: PATH REVIEW PATHOLOGIST REVIEWED
--- NOTE | 2016-11-04 14:51 | PDOC PROGRESS REPORT ---
Subjective Progress Note for:: 11/04/16 Subjective:: Patient was extubated today. Patient very agitated and tachypneic when initially seen. Patient now calm, doing better however is hypertensive. When asked how he is doing patient states he is doing well however patient does not converse any further. Physical Exam Vital Signs: Temp Pulse Resp BP Pulse Ox 98.2 F 88 23 H 168/90 H 95 11/04/16 04:00 11/04/16 08:00 11/04/16 11:07 11/04/16 11:07 11/04/16 11:07 Intake & Output 11/03/16 11/04/16 11/05/16 06:59 06:59 06:59 Intake Total 1110 4376 Output Total 615 2840 525 Balance 495 1536 -525 Weight 62.9 kg 65.1 kg General appearance: PRESENT: no acute distress, cooperative Head exam: PRESENT: normocephalic Eye exam: PRESENT: EOMI. ABSENT: scleral icterus Neck exam: PRESENT: full ROM Respiratory exam: PRESENT: rhonchi, unlabored, wheezes Cardiovascular exam: PRESENT: RRR GI/Abdominal exam: PRESENT: hypoactive bowel sounds, soft, other - surgical dressing midline clean and dry Rectal exam: PRESENT: deferred Gentrourinary exam: PRESENT: indwelling catheter Extremities exam: PRESENT: full ROM. ABSENT: pedal edema Neurological exam: PRESENT: awake, oriented to person. ABSENT: alert, oriented to place, oriented to time Psychiatric exam: PRESENT: agitated, other - in soft wrist restraints Skin exam: PRESENT: intact, warm Results Laboratory Results: 11/04/16 03:44 11/04/16 03:44 11/04/16 11/04/16 11/04/16 03:44 03:44 05:15 WBC 9.6 RBC 2.78 L Hgb 9.8 L Hct 28.5 L MCV 103 H MCH 35.1 H MCHC 34.3 RDW 20.2 H Plt Count 163 Seg Neutrophils % Not Reportable Lymphocytes % Not Reportable Monocytes % Not Reportable Eosinophils % Not Reportable Basophils % Not Reportable Absolute Neutrophils Not Reportable Absolute Lymphocytes Not Reportable Absolute Monocytes Not Reportable Absolute Eosinophils Not Reportable Absolute Basophils Not Reportable Carbonic Acid 0.98 L HCO3/H2CO3 Ratio 25:1 ABG pH 7.49 H ABG pCO2 32.7 L ABG pO2 74.2 L ABG HCO3 24.5 ABG O2 Saturation 96.1 ABG Base Excess 1.6 FiO2 30% Sodium 136.4 L Potassium 4.1 Chloride 106 Carbon Dioxide 27 Anion Gap 3 L BUN 24 H Creatinine 0.51 L Est GFR ( Amer) > 60 Est GFR (Non-Af Amer) > 60 Glucose 80 Calcium 7.7 L Magnesium 2.3 Total Bilirubin 0.4 AST 45 ALT 77 H Alkaline Phosphatase 42 Total Protein 4.0 L Albumin 2.1 L Impressions: Abdomen/Pelvis CT 11/02/16 00:00 IMPRESSION: 1. FREE AIR AND FREE FLUID IN THE ABDOMEN CONSISTENT WITH A PERFORATED VISCUS. NO OBVIOUS SOURCE APPARENT. NO OTHER SIGNIFICANT FINDINGS IN THE ABDOMEN OR PELVIS. 2. MASS IN THE INFRAHILAR RIGHT LUNG SECONDARY TO KNOWN MALIGNANCY. KUB X-Ray 11/02/16 22:00 IMPRESSION: NASOGASTRIC TUBE WITH THE TIP IN THE DISTAL STOMACH. NO RADIOGRAPHIC EVIDENCE FOR ACUTE ABDOMINAL DISEASE. Chest X-Ray 11/04/16 06:00 IMPRESSION: No acute radiographic findings in the chest. Support devices in expected locations. Status: Imported from PACS Assessment & Plan - Diagnosis (1) Respiratory failure requiring intubation Is this a current diagnosis for this admission?: Yes Plan: Patient intimated on 11/02 respiratory failure and extubated on 11/04. Patient currently on nasal cannula and doing well. Pulmonary critical care following. He has history of underlying pulmonary implant emphysema. Patient also has underlying lung cancer with metastases to the brain. (2) Gastric ulcer, acute with perforation Is this a current diagnosis for this admission?: Yes Plan: Patient is status post surgical repair on 11/02/2016. Surgery is following closely. Patient empirically on ciprofloxacin and Flagyl. Patient leukocytosis has significantly improved from 21,000 to 9000. (3) Hyperlipidemia Is this a current diagnosis for this admission?: Yes Plan: Patient can resume his pravastatin 20 mg nightly when appropriate. (4) Hypertension Is this a current diagnosis for this admission?: Yes Plan: Patient is very hypertensive at this time. Will start patient on as needed hydralazine IV. However this will only be given when patient systolic blood pressures greater than 160 has there is cautioned not to cause hypotension especially in a patient who had GI surgery. Patient is also on Florinef however he has not received this medication. Will hold Florinef for now. (5) Lung cancer, primary, with metastasis from lung to other site Is this a current diagnosis for this admission?: Yes Plan: Patient was diagnosed 3-4 months ago with lung cancer with metastases to the brain. Patient is currently on Decadron which will be continued. Patient is on Protonix prophylactically. The patient is treated at [facility]. (6) Anemia Qualifiers: Anemia type: unspecified type Qualified Code(s): D64.9 - Anemia, unspecified Is this a current diagnosis for this admission?: Yes Plan: Patient anemia could be multifocal factorial (malignancy, recent surgery). Patient was recently seen here on 07/05/2016 and had a hemoglobin of 13.1. On admission was 14.4 however this could have been hemoconcentrated. Hemoglobin is trending down to 9.8. There does not appear to be any obvious signs of bleeding. Will order anemia work up. Will continue to monitor. - Time Time Spent with patient: 15-24 minutes - Hospitalist consulted for medical management. We are happy to assist with that managment of this patient and will continue to follow closely.
[2016-11-04] MEDS: HYDRALAZINE HCL INJ/PF 20 MG/1 ML SDV IV PRN (15:21)
[2016-11-04] MEDS: MORPHINE SULFATE 10 MG/ML INJ IV PRN (16:02)
[2016-11-04] MEDS ORDERED: THIAMINE HCL 100 MG TABLET PO ONE (17:00)
[2016-11-04] MEDS ORDERED: HYDROMORPHONE HCL INJ/PF 2 MG/ML AMPULE IV PRN (18:19)
[2016-11-04] MEDS: LABETALOL HCL INJ 20 MG/4 ML DISP.SYRIN IV PRN (18:38)
[2016-11-04] MEDS: HYDROMORPHONE HCL INJ/PF 2 MG/ML AMPULE IV PRN (23:57)
[2016-11-05] MEDS: IPRATROPIUM/ALBUTEROL 0.5-2.5 MG/3 ML AMPUL NEB PRN (00:02)
[2016-11-05] MEDS: LABETALOL HCL INJ 20 MG/4 ML DISP.SYRIN IV PRN ×2 (01:01→13:31)
[2016-11-05] MEDS: LORAZEPAM INJ 2 MG/1 ML VIAL IV PRN ×2 (02:21→11:42)
[2016-11-05] MEDS: HYDRALAZINE HCL INJ/PF 20 MG/1 ML SDV IV PRN ×3 (02:24→17:16)
[2016-11-05] MEDS: NORMAL SALINE 1000 ML 1,000 ML IV PRN ×3 (02:36→21:15)
[2016-11-05] MEDS: HYDROMORPHONE HCL INJ/PF 2 MG/ML AMPULE IV PRN ×4 (02:47→23:56)
[2016-11-05 03:43] LABS: ARTERIAL BLOOD BASE EXCESS 3.5 mmol/L; ARTERIAL BLOOD O2 SATURATION 97.6 % (94-98)
[2016-11-05 04:14] LABS: ALANINE AMINOTRANSFERASE 67 U/L (21-72); ALBUMIN 2.5 g/dL (3.5-5.0); ALKALINE PHOSPHATASE 51 U/L (38-126); ANION GAP 8 (5-19); ASPARTATE AMINO TRANSFERASE 40 U/L (17-59); BILIRUBIN,DIRECT 0.4 mg/dL (0.0-0.4); BILIRUBIN,TOTAL 0.6 mg/dL (0.2-1.3); BLOOD UREA NITROGEN 19 mg/dL (7-20); CALCIUM 8.1 mg/dL (8.4-10.2); CARBON DIOXIDE 27 mmol/L (22-30); CHLORIDE 103 mmol/L (98-107); CREATININE RESULT 0.51 mg/dL (0.52-1.25); GLUCOSE 102 mg/dL (75-110); MAGNESIUM 1.9 mg/dL (1.6-2.3); POTASSIUM 3.6 mmol/L (3.6-5.0); SODIUM 137.7 mmol/L (137-145); TOTAL PROTEIN 4.5 g/dL (6.3-8.2)
[2016-11-05] MEDS ORDERED: HYDROMORPHONE HCL INJ/PF 2 MG/ML AMPULE IV PRN (04:30)
[2016-11-05 04:31] LABS: HEMATOCRIT 29.7 % (37.9-51.0); HEMOGLOBIN 10.2 g/dL (13.5-17.0); HGB HCT DIFFERENCE 0.9; MEAN CORPUSCULAR HEMOGLOBIN 34.5 pg (27.0-33.4); MEAN CORPUSCULAR HGB CONC 34.2 g/dL (32.0-36.0); MEAN CORPUSCULAR VOLUME 101 fl (80-97); RED BLOOD COUNT 2.94 10^6/uL (4.35-5.55); RED CELL DISTRIBUTION WIDTH 18.9 % (11.5-14.0); WHITE BLOOD COUNT 13.5 10^3/uL (4.0-10.5)
[2016-11-05 04:38] LABS: ANISOCYTOSIS 2+; BAND NEUTROPHILS % (MANUAL) 3 % (3-5); BASOPHILS % (MANUAL) 0 % (0-2); BURR CELLS SLIGHT; EOSINOPHILS % (MANUAL) 0 % (0-6); LYMPHOCYTES % (MANUAL) 3 % (13-45); OVALOCYTES SLIGHT; POIKILOCYTOSIS SLIGHT; POLYCHROMASIA SLIGHT; SCHISTOCYTES SLIGHT; TOTAL CELLS COUNTED 100; TOXIC GRANULATION 1+; TOXIC VACUOLATION PRESENT
--- NOTE | 2016-11-05 05:32 | RADIOLOGY REPORT (SQ) ---
EXAM DESCRIPTION: CT HEAD WITHOUT COMPLETED DATE/TIME: 11/05/2016 5:06 am REASON FOR STUDY: ams, brain mets (lung Ca) COMPARISON: CT head 07/05/2016. TECHNIQUE: Axial images acquired through the brain without intravenous contrast. Images reviewed wi th bone, brain and subdural windows. Images stored on PACS. All CT scanners at this facility use dose modulation, iterative reconstruction, and/or weight based d osing when appropriate to reduce radiation dose to as low as reasonably achievable (ALARA). [facility]: Dose Right [facility]: CareDose [facility]: Dose Right [facility]: Teradose 4D [facility]: [employer] RADIATION DOSE: Up-to-date CT equipment and radiation dose reduction techniques were employed. CTDIv ol: 67.0 mGy. DLP: 1350 mGy-cm. mGy. LIMITATIONS: None. FINDINGS: VENTRICLES: Normal size and contour. CEREBRUM: Interval decrease in the hypodense lesion at the posterior right parietal lobe measuring 1. 1 x 1.0 cm, previously measured 3.0 x 2.2 cm. The previously described smaller hypodense mass at the superior right parietal lobe is not visualized on this exam. Interval resolution of the previously described edema. No hemorrhage. No midline shift. No evidence for acute territorial infarction. CEREBELLUM: The previously described hypodense mass at the right cerebellar hemisphere is not seen on today's exam. No hemorrhage. No alteration of density. No evidence for acute infarction. EXTRAAXIAL SPACES: No fluid collections. ORBITS AND GLOBE: Symmetrical contour of the globes. CALVARIUM: No depressed fracture. PARANASAL SINUSES: No air-fluid level. SOFT TISSUES: No hematoma. IMPRESSION: No acute intracranial hemorrhage or acute territorial infarct. Interval improvement in the appearance of the brain with decrease in the hypodense mass at the posterior right parietal lobe and non visualization of the previously described masses at the superior right parietal lobe and righ t cerebellar hemisphere. COMMENT: Quality ID # [id number]: Final reports with documentation of one or more dose reduction techniques (e.g., Automated exposure control, adjustment of the mA and/or kV according to patient size, use of iterative reconstruction technique) TECHNICAL DOCUMENTATION: JOB ID: [id number] [employer]- All Rights Reserved
[2016-11-05] MEDS: METRONIDAZOLE 500 MG/NS RTU 100 ML IV SCH ×3 (05:55→21:15)
--- NOTE | 2016-11-05 06:04 | RADIOLOGY REPORT (SQ) ---
EXAM DESCRIPTION: CHEST SINGLE VIEW COMPLETED DATE/TIME: 11/05/2016 5:09 am REASON FOR STUDY: resp fail COMPARISON: Chest x-ray 11/04/2016. EXAM PARAMETERS: NUMBER OF VIEWS: One view. TECHNIQUE: Single frontal radiographic view of the chest acquired. RADIATION DOSE: NA LIMITATIONS: Monitoring wires are overlying the patient's chest. FINDINGS: LUNGS AND PLEURA: Interval development of airspace opacity in the right lower lobe. No pl eural effusion or pneumothorax. MEDIASTINUM AND HILAR STRUCTURES: Stable. HEART AND VASCULAR STRUCTURES: The heart is not enlarged. There is no overt vascular congestion. BONES: No acute findings. HARDWARE: The endotracheal tube has been removed. An enteric tube terminates under the left hemidiap hragm, its tip is not included on this exam. IMPRESSION: Interval development of airspace opacity in the right lower lobe, may represent atelecta sis or pneumonia. TECHNICAL DOCUMENTATION: JOB ID: [id number]
[2016-11-05 06:12] LABS: ARTERIAL BLOOD O2 SATURATION 95.1 % (94-98)
[2016-11-05] MEDS ORDERED: TOBRAMYCIN SULFATE INJ 80 MG/2 ML VIAL NEB SCH (08:45)
[2016-11-05] MEDS ORDERED: TOBRAMYCIN SULFATE NEB 40 MG/ML 30 ML NEB ONE (10:00)
[2016-11-05] MEDS: CIPROFLOXACIN 400 MG/D5W RTU 400 MG/200 ML RTUPB IV SCH ×2 (10:48→21:15)
[2016-11-05] MEDS: DEXAMETHASONE SOD PHOSPHATE INJ 4 MG/1 ML VIAL IV SCH ×4 (10:49→21:15)
[2016-11-05] MEDS: PANTOPRAZOLE SODIUM 40 MG VIAL IV SCH (10:50)
[2016-11-05] MEDS: THIAMINE HCL 100 MG TABLET PO SCH (10:50)
--- NOTE | 2016-11-05 12:43 | PROGRESS NOTE E ---
Progress Note NAME: ROXANNE BACH : 1955 AGE: 61Y DATE: 11/05/2016 ROOM: 603 SUBJECTIVE: Patient has been somewhat confused though has episodes of being oriented. He has been quite agitated at bedside but somehow unable to tell what is bothering him. However, when asked if he has any abdominal pains, he denies. OBJECTIVE: VITAL SIGNS: He is afebrile at 97.9 degrees Fahrenheit. HEENT: His NG drainage is still minimal. ABDOMEN: His abdomen remains soft and actually almost flat. The incision is clean and dry, and no definite tenderness. PLAN: We are trying to get any family member to discuss further his care, since he has stage IV lung cancer with mets to the brain. As far as the repair of the gastric ulcer, he seems to be progressing quite well. Probably keep the NG tube for another 24 to 48 hours. DICTATING PHYSICIAN: ONEIDA DANG M.D. [id number] MAGAN#: [id number] ID: [id number] JOB#: [id number] ACCT: [id number] cc: >
--- NOTE | 2016-11-05 14:03 | PDOC PROGRESS REPORT ---
Subjective Progress Note for:: 11/05/16 Subjective:: 24 hours status post extubation doing fairly well was required some assistance with BiPAP Physical Exam Vital Signs: Temp Pulse Resp BP Pulse Ox 97.9 F 53 L 15 170/78 H 98 11/05/16 08:00 11/05/16 08:00 11/05/16 08:00 11/05/16 08:00 11/05/16 08:00 Intake & Output 11/04/16 11/05/16 11/06/16 06:59 06:59 06:59 Intake Total 4376 2728 Output Total 2840 4720 200 Balance 1536 -1992 -200 Weight 65.1 kg 64.2 kg General appearance: PRESENT: no acute distress, disheveled, well-developed Head exam: PRESENT: atraumatic, normocephalic Eye exam: PRESENT: conjunctiva pale, EOMI Mouth exam: PRESENT: dry mucosa, neck supple, tongue midline Neck exam: ABSENT: carotid bruit, JVD, lymphadenopathy, thyromegaly Respiratory exam: PRESENT: decreased breath sounds, prolonged expiratory phas, rhonchi, symmetrical, unlabored, wheezes Cardiovascular exam: PRESENT: RRR, +S1, +S2 Pulses: PRESENT: normal radial pulses GI/Abdominal exam: PRESENT: diminished bowel sounds, soft. ABSENT: distended, firm, guarding, hernia, hyperactive bowel sounds, hypoactive bowel sounds, mass , Maier's sign, normal bowel sounds, organolmegaly, rebound, tenderness Rectal exam: PRESENT: deferred Gentrourinary exam: PRESENT: indwelling catheter Musculoskeletal exam: PRESENT: normal inspection Skin exam: PRESENT: dry, warm Results Laboratory Results: 11/05/16 03:54 11/05/16 03:54 11/05/16 11/05/16 11/05/16 03:10 03:54 03:54 WBC 13.5 H RBC 2.94 L Hgb 10.2 L Hct 29.7 L MCV 101 H MCH 34.5 H MCHC 34.2 RDW 18.9 H Plt Count 181 Seg Neutrophils % Not Reportable Lymphocytes % Not Reportable Monocytes % Not Reportable Eosinophils % Not Reportable Basophils % Not Reportable Absolute Neutrophils Not Reportable Absolute Lymphocytes Not Reportable Absolute Monocytes Not Reportable Absolute Eosinophils Not Reportable Absolute Basophils Not Reportable Retic Count (auto) 2.90 H Absolute Retic 0.085 Carbonic Acid 1.09 HCO3/H2CO3 Ratio 24:1 ABG pH 7.49 H ABG pCO2 36.2 ABG pO2 91.5 ABG HCO3 26.9 H ABG O2 Saturation 97.6 ABG Base Excess 3.5 FiO2 ROOM AIR Sodium 137.7 Potassium 3.6 Chloride 103 Carbon Dioxide 27 Anion Gap 8 BUN 19 Creatinine 0.51 L Est GFR ( Amer) > 60 Est GFR (Non-Af Amer) > 60 Glucose 102 Calcium 8.1 L Magnesium 1.9 Iron 47.3 L TIBC 265 % Saturation 18 Ferritin 954.00 H Total Bilirubin 0.6 AST 40 ALT 67 Alkaline Phosphatase 51 Total Protein 4.5 L Albumin 2.5 L Vitamin B12 489.0 Folate 18.60 11/05/16 06:00 WBC RBC Hgb Hct MCV MCH MCHC RDW Plt Count Seg Neutrophils % Lymphocytes % Monocytes % Eosinophils % Basophils % Absolute Neutrophils Absolute Lymphocytes Absolute Monocytes Absolute Eosinophils Absolute Basophils Retic Count (auto) Absolute Retic Carbonic Acid 1.02 L HCO3/H2CO3 Ratio 24:1 ABG pH 7.49 H ABG pCO2 33.9 L ABG pO2 68.5 L ABG HCO3 25.0 ABG O2 Saturation 95.1 ABG Base Excess 2.0 FiO2 30% Sodium Potassium Chloride Carbon Dioxide Anion Gap BUN Creatinine Est GFR ( Amer) Est GFR (Non-Af Amer) Glucose Calcium Magnesium Iron TIBC % Saturation Ferritin Total Bilirubin AST ALT Alkaline Phosphatase Total Protein Albumin Vitamin B12 Folate Impressions: Abdomen/Pelvis CT 11/02/16 00:00 IMPRESSION: 1. FREE AIR AND FREE FLUID IN THE ABDOMEN CONSISTENT WITH A PERFORATED VISCUS. NO OBVIOUS SOURCE APPARENT. NO OTHER SIGNIFICANT FINDINGS IN THE ABDOMEN OR PELVIS. 2. MASS IN THE INFRAHILAR RIGHT LUNG SECONDARY TO KNOWN MALIGNANCY. KUB X-Ray 11/02/16 22:00 IMPRESSION: NASOGASTRIC TUBE WITH THE TIP IN THE DISTAL STOMACH. NO RADIOGRAPHIC EVIDENCE FOR ACUTE ABDOMINAL DISEASE. Head CT 11/05/16 00:00 IMPRESSION: No acute intracranial hemorrhage or acute territorial infarct. Interval improvement in the appearance of the brain with decrease in the hypodense mass at the posterior right parietal lobe and non visualization of the previously described masses at the superior right parietal lobe and right cerebellar hemisphere. Chest X-Ray 11/05/16 06:00 IMPRESSION: Interval development of airspace opacity in the right lower lobe, may represent atelectasis or pneumonia. Assessment & Plan - Diagnosis (1) Pulmonary emphysema Qualifiers: Emphysema type: centrilobular Qualified Code(s): J43.2 - Centrilobular emphysema Is this a current diagnosis for this admission?: Yes Plan: 24 hours status post extubation doing well (2) Brain lesion Is this a current diagnosis for this admission?: Yes Plan: start decadron (3) Perforated bowel Is this a current diagnosis for this admission?: Yes - Time Critical Time spent with patient: 25-34 minutes
--- NOTE | 2016-11-05 19:00 | PDOC PROGRESS REPORT ---
Subjective Progress Note for:: 11/05/16 Subjective:: Patient with BiPAP in place. Patient is agitated. Physical Exam Vital Signs: Temp Pulse Resp BP Pulse Ox 97.9 F 59 L 18 156/99 H 98 11/05/16 16:00 11/05/16 16:00 11/05/16 16:10 11/05/16 16:10 11/05/16 16:10 Intake & Output 11/04/16 11/05/16 11/06/16 06:59 06:59 06:59 Intake Total 4376 2728 Output Total 2840 4700 4650 Balance [id number] Weight 65.1 kg 64.2 kg General appearance: PRESENT: mild distress, thin Head exam: PRESENT: normocephalic Respiratory exam: PRESENT: decreased breath sounds, rhonchi, other - BiPAP and placed Rectal exam: PRESENT: deferred Gentrourinary exam: PRESENT: indwelling catheter Musculoskeletal exam: PRESENT: other - Muscle wasting Neurological exam: PRESENT: other - All extremities Psychiatric exam: PRESENT: agitated Focused psych exam: PRESENT: restlessness Results Laboratory Results: 11/05/16 03:54 11/05/16 03:54 11/05/16 11/05/16 11/05/16 03:10 03:54 03:54 WBC 13.5 H RBC 2.94 L Hgb 10.2 L Hct 29.7 L MCV 101 H MCH 34.5 H MCHC 34.2 RDW 18.9 H Plt Count 181 Seg Neutrophils % Not Reportable Lymphocytes % Not Reportable Monocytes % Not Reportable Eosinophils % Not Reportable Basophils % Not Reportable Absolute Neutrophils Not Reportable Absolute Lymphocytes Not Reportable Absolute Monocytes Not Reportable Absolute Eosinophils Not Reportable Absolute Basophils Not Reportable Retic Count (auto) 2.90 H Absolute Retic 0.085 Carbonic Acid 1.09 HCO3/H2CO3 Ratio 24:1 ABG pH 7.49 H ABG pCO2 36.2 ABG pO2 91.5 ABG HCO3 26.9 H ABG O2 Saturation 97.6 ABG Base Excess 3.5 FiO2 ROOM AIR Sodium 137.7 Potassium 3.6 Chloride 103 Carbon Dioxide 27 Anion Gap 8 BUN 19 Creatinine 0.51 L Est GFR ( Amer) > 60 Est GFR (Non-Af Amer) > 60 Glucose 102 Calcium 8.1 L Magnesium 1.9 Iron 47.3 L TIBC 265 % Saturation 18 Ferritin 954.00 H Total Bilirubin 0.6 AST 40 ALT 67 Alkaline Phosphatase 51 Total Protein 4.5 L Albumin 2.5 L Vitamin B12 489.0 Folate 18.60 11/05/16 06:00 WBC RBC Hgb Hct MCV MCH MCHC RDW Plt Count Seg Neutrophils % Lymphocytes % Monocytes % Eosinophils % Basophils % Absolute Neutrophils Absolute Lymphocytes Absolute Monocytes Absolute Eosinophils Absolute Basophils Retic Count (auto) Absolute Retic Carbonic Acid 1.02 L HCO3/H2CO3 Ratio 24:1 ABG pH 7.49 H ABG pCO2 33.9 L ABG pO2 68.5 L ABG HCO3 25.0 ABG O2 Saturation 95.1 ABG Base Excess 2.0 FiO2 30% Sodium Potassium Chloride Carbon Dioxide Anion Gap BUN Creatinine Est GFR ( Amer) Est GFR (Non-Af Amer) Glucose Calcium Magnesium Iron TIBC % Saturation Ferritin Total Bilirubin AST ALT Alkaline Phosphatase Total Protein Albumin Vitamin B12 Folate 11/03/16 10:10 Tracheal Aspirate Gram Stain - Final Impressions: Abdomen/Pelvis CT 11/02/16 00:00 IMPRESSION: 1. FREE AIR AND FREE FLUID IN THE ABDOMEN CONSISTENT WITH A PERFORATED VISCUS. NO OBVIOUS SOURCE APPARENT. NO OTHER SIGNIFICANT FINDINGS IN THE ABDOMEN OR PELVIS. 2. MASS IN THE INFRAHILAR RIGHT LUNG SECONDARY TO KNOWN MALIGNANCY. KUB X-Ray 11/02/16 22:00 IMPRESSION: NASOGASTRIC TUBE WITH THE TIP IN THE DISTAL STOMACH. NO RADIOGRAPHIC EVIDENCE FOR ACUTE ABDOMINAL DISEASE. Head CT 11/05/16 00:00 IMPRESSION: No acute intracranial hemorrhage or acute territorial infarct. Interval improvement in the appearance of the brain with decrease in the hypodense mass at the posterior right parietal lobe and non visualization of the previously described masses at the superior right parietal lobe and right cerebellar hemisphere. Chest X-Ray 11/05/16 06:00 IMPRESSION: Interval development of airspace opacity in the right lower lobe, may represent atelectasis or pneumonia. Assessment & Plan - Diagnosis (1) Respiratory failure requiring intubation Is this a current diagnosis for this admission?: Yes Plan: Patient intimated on 11/02 respiratory failure and extubated on 11/04. Patient currently on BiPAP. Apparently patient developed some respiratory distress overnight and worsening agitation. CT scan was done of the head which did not show any acute findings. ABG did show some hypoxemia. Pulmonary critical care following. He has history of underlying pulmonary implant emphysema. Patient also has underlying lung cancer with metastases to the brain. (2) Gastric ulcer, acute with perforation Is this a current diagnosis for this admission?: Yes Plan: Patient is status post surgical repair on 11/02/2016. Surgery is following closely. Patient empirically on ciprofloxacin and Flagyl. Patient leukocytosis slightly elevated at 13.5 however this could be reactive. (3) Hyperlipidemia Is this a current diagnosis for this admission?: Yes Plan: Patient can resume his pravastatin 20 mg nightly when appropriate. (4) Hypertension Is this a current diagnosis for this admission?: Yes Plan: Blood pressures are improved. Will start patient on as needed hydralazine IV. However this will only be given when patient systolic blood pressures greater than 160 has there is cautioned not to cause hypotension especially in a patient who had GI surgery. Patient is also on Florinef however he has not received this medication. Will hold Florinef for now. (5) Lung cancer, primary, with metastasis from lung to other site Is this a current diagnosis for this admission?: Yes Plan: Patient was diagnosed 3-4 months ago with lung cancer with metastases to the brain. Patient is currently on Decadron which will be continued. Patient is on Protonix prophylactically. [facility]. (6) Anemia Qualifiers: Anemia type: unspecified type Qualified Code(s): D64.9 - Anemia, unspecified Is this a current diagnosis for this admission?: Yes - Time Time Spent with patient: Less than 15 minutes - Plan Summary Plan Summary: Patient is currently in the ICU under the care of surgery.
--- NOTE | 2016-11-05 19:52 | EKG REPORT ---
SEVERITY:- NORMAL ECG - SINUS RHYTHM : Confirmed by: Austin Campbell MD 05-Nov-2016 19:51:38
[2016-11-05] MEDS: TOBRAMYCIN SULFATE NEB 40 MG/ML 30 ML NEB SCH (20:38)
[2016-11-06] MEDS: DEXAMETHASONE SOD PHOSPHATE INJ 4 MG/1 ML VIAL IV SCH ×6 (01:36→21:32)
[2016-11-06] MEDS: HYDRALAZINE HCL INJ/PF 20 MG/1 ML SDV IV PRN ×2 (02:31→09:31)
[2016-11-06] MEDS: HYDROMORPHONE HCL INJ/PF 2 MG/ML AMPULE IV PRN ×6 (02:49→19:42)
[2016-11-06] MEDS: LORAZEPAM INJ 2 MG/1 ML VIAL IV PRN ×3 (02:56→21:31)
[2016-11-06] MEDS: LABETALOL HCL INJ 20 MG/4 ML DISP.SYRIN IV PRN ×2 (02:56→12:26)
[2016-11-06 05:06] LABS: HEMATOCRIT 33.9 % (37.9-51.0); HEMOGLOBIN 11.7 g/dL (13.5-17.0); HGB HCT DIFFERENCE 1.2; MEAN CORPUSCULAR HEMOGLOBIN 34.8 pg (27.0-33.4); MEAN CORPUSCULAR HGB CONC 34.4 g/dL (32.0-36.0); MEAN CORPUSCULAR VOLUME 101 fl (80-97); RED BLOOD COUNT 3.35 10^6/uL (4.35-5.55); RED CELL DISTRIBUTION WIDTH 18.3 % (11.5-14.0); WHITE BLOOD COUNT 14.1 10^3/uL (4.0-10.5)
[2016-11-06 05:28] LABS: BAND NEUTROPHILS % (MANUAL) 1 % (3-5); BASOPHILS % (MANUAL) 0 % (0-2); EOSINOPHILS % (MANUAL) 0 % (0-6); LYMPHOCYTES % (MANUAL) 2 % (13-45); TOTAL CELLS COUNTED 100
[2016-11-06 05:29] LABS: ANISOCYTOSIS 2+; TOXIC GRANULATION 1+; TOXIC VACUOLATION PRESENT
[2016-11-06 05:34] LABS: ALANINE AMINOTRANSFERASE 48 U/L (21-72); ALKALINE PHOSPHATASE 62 U/L (38-126); ANION GAP 10 (5-19); ASPARTATE AMINO TRANSFERASE 43 U/L (17-59); BILIRUBIN,DIRECT 0.5 mg/dL (0.0-0.4); BILIRUBIN,TOTAL 0.7 mg/dL (0.2-1.3); BLOOD UREA NITROGEN 18 mg/dL (7-20); CALCIUM 8.3 mg/dL (8.4-10.2); CARBON DIOXIDE 25 mmol/L (22-30); CHLORIDE 101 mmol/L (98-107); CREATININE RESULT 0.39 mg/dL (0.52-1.25); GLUCOSE 123 mg/dL (75-110); MAGNESIUM 1.8 mg/dL (1.6-2.3); PHOSPHORUS 3.9 mg/dL (2.5-4.5); POTASSIUM 3.8 mmol/L (3.6-5.0); SODIUM 136.1 mmol/L (137-145); TOTAL PROTEIN 5.3 g/dL (6.3-8.2)
[2016-11-06] MEDS: NORMAL SALINE 1000 ML 1,000 ML IV PRN ×2 (05:52→18:01)
[2016-11-06] MEDS: METRONIDAZOLE 500 MG/NS RTU 100 ML IV SCH ×3 (05:52→21:32)
--- NOTE | 2016-11-06 06:38 | RADIOLOGY REPORT (SQ) ---
EXAM DESCRIPTION: CHEST SINGLE VIEW COMPLETED DATE/TIME: 11/06/2016 6:25 am REASON FOR STUDY: pna COMPARISON: Chest x-ray 11/05/2016. EXAM PARAMETERS: NUMBER OF VIEWS: One view. TECHNIQUE: Single frontal radiographic view of the chest acquired. RADIATION DOSE: NA LIMITATIONS: Patient positioning. Monitoring wires are overlying the patient's chest. FINDINGS: LUNGS AND PLEURA: Hyperlucent lungs, suggestive of emphysema. Interval decrease in the ai rspace opacity at the right lung base. Interval development of faint bilateral perihilar ground-glas s opacities. No sizable pleural effusion. No pneumothorax. MEDIASTINUM AND HILAR STRUCTURES: No masses. Contour normal. HEART AND VASCULAR STRUCTURES: Heart normal in size. No overt vascular congestion. BONES: No acute findings. HARDWARE: Enteric tube terminates in the midline upper abdomen, in the expected location of the gastr ic antrum. IMPRESSION: Interval development of faint bilateral perihilar ground-glass opacities, may represent mild pulmonary edema. Interval decrease in the airspace opacity at the right lung base. Emphysema. TECHNICAL DOCUMENTATION: JOB ID: [id number]
[2016-11-06] MEDS: IPRATROPIUM/ALBUTEROL 0.5-2.5 MG/3 ML AMPUL NEB PRN (06:41)
[2016-11-06 07:14] LABS: ARTERIAL BLOOD BASE EXCESS 1.7 mmol/L; ARTERIAL BLOOD O2 SATURATION 99.1 % (94-98)
[2016-11-06] MEDS: TOBRAMYCIN SULFATE NEB 40 MG/ML 30 ML NEB SCH ×2 (07:20→20:54)
[2016-11-06] MEDS: CIPROFLOXACIN 400 MG/D5W RTU 400 MG/200 ML RTUPB IV SCH ×2 (09:31→21:31)
[2016-11-06] MEDS: THIAMINE HCL 100 MG TABLET PO SCH (09:32)
[2016-11-06] MEDS ORDERED: FENTANYL 50 MCG/HR PATCH.TD72 TD SCH (10:00)
--- NOTE | 2016-11-06 11:18 | PROGRESS NOTE E ---
Progress Note NAME: ROXANNE BACH : 1955 AGE: 61Y DATE: 11/06/2016 ROOM: 603 SUBJECTIVE: Today is the 4th postop day post repair of perforated gastric ulcer with omental patch. The patient appears still agitated but somehow responds appropriately. He denies any abdominal pains. He wants his Valladares removed. OBJECTIVE: His vital signs remain stable with remaining afebrile with a temperature of 97.5, heart rate is 73 per minute and 02 sat is 95% on BiPAP. His abdomen is practically flat and the incision is dry. He has some bowel sounds. The NG tube has not really drained since postop. His white count is slightly elevated at 14,000 yesterday. PLAN: To keep the NG tube another 24 hours and possibly discontinue it and then start him on clear liquids. We will repeat his lab work in the a.m. His sister is coming to the hospital, his sister who has the [id number] and I asked the nurse to call me when his sister comes so we can discuss further the patient's DNR status. At this time the patient still requests FULL CODE. The patient has stage IV lung cancer with brain mets and had radiation therapy to the brain. He is undergoing chemotherapy. DICTATING PHYSICIAN: ONEIDA DANG M.D. [id number] PHY#: [id number] ID: [id number] JOB#: [id number] ACCT: [id number] cc: >
[2016-11-06] MEDS ORDERED: FUROSEMIDE INJ/PF 20 MG/2 ML SDV IV ONE (12:30)
[2016-11-07] MEDS: HYDROMORPHONE HCL INJ/PF 2 MG/ML AMPULE IV PRN ×4 (00:17→12:56)
--- NOTE | 2016-11-07 01:39 | PDOC PROGRESS REPORT ---
Subjective Progress Note for:: 11/06/16 Subjective:: Still very agitated at times. Physical Exam Vital Signs: Temp Pulse Resp BP Pulse Ox 97.5 F 80 8 L 141/93 H 99 11/06/16 23:52 11/06/16 20:54 11/06/16 23:12 11/06/16 23:12 11/06/16 23:12 Intake & Output 11/05/16 11/06/16 11/07/16 06:59 06:59 06:59 Intake Total 2728 3232 1399 Output Total 4720 6525 3350 Balance -1991 Weight 64.2 kg 60.5 kg General appearance: PRESENT: no acute distress, well-developed, well-nourished Head exam: PRESENT: atraumatic, normocephalic Eye exam: PRESENT: conjunctiva pink, EOMI, PERRLA. ABSENT: scleral icterus Ear exam: PRESENT: normal external ear exam Mouth exam: PRESENT: moist, tongue midline Neck exam: ABSENT: carotid bruit, JVD, lymphadenopathy, thyromegaly Respiratory exam: PRESENT: clear to auscultation gali. ABSENT: rales, rhonchi, wheezes Cardiovascular exam: PRESENT: RRR. ABSENT: diastolic murmur, rubs, systolic murmur Pulses: PRESENT: normal dorsalis pedis pul Vascular exam: PRESENT: normal capillary refill GI/Abdominal exam: PRESENT: normal bowel sounds, soft. ABSENT: distended, guarding, mass, organolmegaly, rebound, tenderness Rectal exam: PRESENT: deferred Extremities exam: PRESENT: full ROM. ABSENT: calf tenderness, clubbing, pedal edema Neurological exam: PRESENT: alert, awake, oriented to person, oriented to place , oriented to time, oriented to situation, CN II-XII grossly intact. ABSENT: motor sensory deficit Psychiatric exam: PRESENT: appropriate affect, normal mood. ABSENT: homicidal ideation, suicidal ideation Skin exam: PRESENT: dry, intact, warm. ABSENT: cyanosis, rash Results Laboratory Results: 11/06/16 04:55 11/06/16 04:55 11/06/16 11/06/16 11/06/16 03:57 03:57 04:55 WBC Cancelled 14.1 H RBC Cancelled 3.35 L Hgb Cancelled 11.7 L Hct Cancelled 33.9 L MCV Cancelled 101 H MCH Cancelled 34.8 H MCHC Cancelled 34.4 RDW Cancelled 18.3 H Plt Count Cancelled 175 Seg Neutrophils % Cancelled Not Reportable Lymphocytes % Cancelled Not Reportable Monocytes % Cancelled Not Reportable Eosinophils % Cancelled Not Reportable Basophils % Cancelled Not Reportable Absolute Neutrophils Cancelled Not Reportable Absolute Lymphocytes Cancelled Not Reportable Absolute Monocytes Cancelled Not Reportable Absolute Eosinophils Cancelled Not Reportable Absolute Basophils Cancelled Not Reportable Carbonic Acid HCO3/H2CO3 Ratio ABG pH ABG pCO2 ABG pO2 ABG HCO3 ABG O2 Saturation ABG Base Excess FiO2 Sodium Cancelled Potassium Cancelled Chloride Cancelled Carbon Dioxide Cancelled Anion Gap Cancelled BUN Cancelled Creatinine Cancelled Est GFR ( Amer) Cancelled Est GFR (Non-Af Amer) Cancelled Glucose Cancelled Calcium Cancelled Phosphorus Cancelled Magnesium Cancelled Transferrin Total Bilirubin Cancelled AST Cancelled ALT Cancelled Alkaline Phosphatase Cancelled Total Protein Cancelled Albumin Cancelled 11/06/16 11/06/16 11/06/16 04:55 05:23 06:40 WBC RBC Hgb Hct MCV MCH MCHC RDW Plt Count Seg Neutrophils % Lymphocytes % Monocytes % Eosinophils % Basophils % Absolute Neutrophils Absolute Lymphocytes Absolute Monocytes Absolute Eosinophils Absolute Basophils Carbonic Acid 1.18 HCO3/H2CO3 Ratio 21:1 ABG pH 7.44 ABG pCO2 39.1 ABG pO2 154.3 H ABG HCO3 25.8 ABG O2 Saturation 99.1 H ABG Base Excess 1.7 FiO2 35% Sodium 136.1 L Potassium 3.8 Chloride 101 Carbon Dioxide 25 Anion Gap 10 BUN 18 Creatinine 0.39 L Est GFR ( Amer) > 60 Est GFR (Non-Af Amer) > 60 Glucose 123 H Calcium 8.3 L Phosphorus 3.9 Magnesium 1.8 Transferrin 197 L Total Bilirubin 0.7 AST 43 ALT 48 Alkaline Phosphatase 62 Total Protein 5.3 L Albumin 3.0 L 11/03/16 10:10 Tracheal Aspirate Gram Stain - Final 11/03/16 10:10 Tracheal Aspirate Sputum Culture - Final Pseudomonas Aeruginosa Streptococcus Pneumoniae C.albicans/C.dubliniensis Normal Dang Absent Impressions: Abdomen/Pelvis CT 11/02/16 00:00 IMPRESSION: 1. FREE AIR AND FREE FLUID IN THE ABDOMEN CONSISTENT WITH A PERFORATED VISCUS. NO OBVIOUS SOURCE APPARENT. NO OTHER SIGNIFICANT FINDINGS IN THE ABDOMEN OR PELVIS. 2. MASS IN THE INFRAHILAR RIGHT LUNG SECONDARY TO KNOWN MALIGNANCY. KUB X-Ray 11/02/16 22:00 IMPRESSION: NASOGASTRIC TUBE WITH THE TIP IN THE DISTAL STOMACH. NO RADIOGRAPHIC EVIDENCE FOR ACUTE ABDOMINAL DISEASE. Head CT 11/05/16 00:00 IMPRESSION: No acute intracranial hemorrhage or acute territorial infarct. Interval improvement in the appearance of the brain with decrease in the hypodense mass at the posterior right parietal lobe and non visualization of the previously described masses at the superior right parietal lobe and right cerebellar hemisphere. Chest X-Ray 11/06/16 06:00 IMPRESSION: Interval development of faint bilateral perihilar ground-glass opacities, may represent mild pulmonary edema. Interval decrease in the airspace opacity at the right lung base. Emphysema. Assessment & Plan - Diagnosis (1) Respiratory failure requiring intubation Is this a current diagnosis for this admission?: Yes Plan: Patient intimated on 11/02 respiratory failure and extubated on 11/04. Patient currently on BiPAP. Pulmonary following (2) Gastric ulcer, acute with perforation Is this a current diagnosis for this admission?: Yes Plan: Patient is status post surgical repair on 11/02/2016. Surgery is following closely. Patient empirically on ciprofloxacin and Flagyl. Patient leukocytosis slightly elevated at 13.5 however this could be reactive. (3) Hyperlipidemia Is this a current diagnosis for this admission?: Yes Plan: Patient can resume his pravastatin 20 mg nightly when appropriate. (4) Hypertension Is this a current diagnosis for this admission?: Yes Plan: Blood pressures are improved. Will start patient on as needed hydralazine IV. However this will only be given when patient systolic blood pressures greater than 160 cautious not to cause hypotension especially in a patient who had GI surgery. Patient is also on Florinef however he has not received this medication. Will hold Florinef for now. (5) Lung cancer, primary, with metastasis from lung to other site Is this a current diagnosis for this admission?: Yes Plan: Patient was diagnosed 3-4 months ago with lung cancer with metastases to the brain. Patient is currently on Decadron which will be continued. Patient is on Protonix prophylactically. The patient is treated at [facility]. (6) Anemia Qualifiers: Anemia type: unspecified type Qualified Code(s): D64.9 - Anemia, unspecified Is this a current diagnosis for this admission?: Yes Plan: Patient anemia could be multifocal factorial (malignancy, recent surgery). Patient was recently seen here on 07/05/2016 and had a hemoglobin of 13.1. On admission was 14.4 however this could have been hemoconcentrated. Hemoglobin is trending back up now 11.7. There does not appear to be any obvious signs of bleeding. - Time Time Spent with patient: Less than 15 minutes - We will continue to follow as configuration consultant for medical management.
[2016-11-07] MEDS: DEXAMETHASONE SOD PHOSPHATE INJ 4 MG/1 ML VIAL IV SCH ×6 (02:30→22:55)
[2016-11-07 04:09] LABS: HEMATOCRIT 39.4 % (37.9-51.0); HGB HCT DIFFERENCE -0.4; MEAN CORPUSCULAR HEMOGLOBIN 33.6 pg (27.0-33.4); MEAN CORPUSCULAR HGB CONC 32.9 g/dL (32.0-36.0); MEAN CORPUSCULAR VOLUME 102 fl (80-97); RED BLOOD COUNT 3.86 10^6/uL (4.35-5.55); RED CELL DISTRIBUTION WIDTH 18.6 % (11.5-14.0); WHITE BLOOD COUNT 16.3 10^3/uL (4.0-10.5)
[2016-11-07 04:15] LABS: ANION GAP 11 (5-19); BLOOD UREA NITROGEN 21 mg/dL (7-20); CALCIUM 8.9 mg/dL (8.4-10.2); CARBON DIOXIDE 29 mmol/L (22-30); CHLORIDE 98 mmol/L (98-107); CREATININE RESULT 0.49 mg/dL (0.52-1.25); GLUCOSE 139 mg/dL (75-110); POTASSIUM 3.7 mmol/L (3.6-5.0)
[2016-11-07 04:30] LABS: BASOPHILS % (MANUAL) 0 % (0-2); EOSINOPHILS % (MANUAL) 0 % (0-6); LYMPHOCYTES % (MANUAL) 3 % (13-45); TOTAL CELLS COUNTED 100
[2016-11-07 04:32] LABS: ANISOCYTOSIS 2+; BURR CELLS SLIGHT; OVALOCYTES SLIGHT; POIKILOCYTOSIS SLIGHT; SCHISTOCYTES SLIGHT; TEAR DROP CELLS SLIGHT; TOXIC GRANULATION 1+
[2016-11-07] MEDS: NORMAL SALINE 1000 ML 1,000 ML IV PRN ×2 (04:33→18:50)
[2016-11-07] MEDS: METRONIDAZOLE 500 MG/NS RTU 100 ML IV SCH ×3 (05:32→22:56)
[2016-11-07] MEDS: TOBRAMYCIN SULFATE NEB 40 MG/ML 30 ML NEB SCH ×2 (08:31→20:48)
[2016-11-07] MEDS: IPRATROPIUM/ALBUTEROL 0.5-2.5 MG/3 ML AMPUL NEB PRN (08:31)
--- NOTE | 2016-11-07 08:44 | PDOC PROGRESS REPORT ---
Subjective Progress Note for:: 11/07/16 Subjective:: Patient is postoperative day 5. He is confused for the most part but has mittens breakthroughs lucency and follows some coming. He is on BiPAP continuously. No hemodynamic issues overnight Physical Exam Vital Signs: Temp Pulse Resp BP Pulse Ox 98.1 F 85 16 162/81 H 100 11/07/16 08:00 11/07/16 08:00 11/07/16 08:00 11/07/16 08:00 11/07/16 08:00 Intake & Output 11/06/16 11/07/16 11/08/16 06:59 06:59 06:59 Intake Total 3232 2644 Output Total 6502 3800 150 Balance -3293 -1156 -150 Weight 60.5 kg 59 kg General appearance: PRESENT: mild distress Respiratory exam: PRESENT: other - On BiPAP device. There is some respiratory arrest, mild. Is not labored breathing GI/Abdominal exam: PRESENT: other - Abdominal incision examined and it looks excellent. The abdomen is soft no peritoneal signs no rigidity Results Laboratory Results: 11/07/16 03:53 11/07/16 03:53 11/07/16 11/07/16 03:53 03:53 WBC 16.3 H RBC 3.86 L Hgb 13.0 L Hct 39.4 MCV 102 H MCH 33.6 H MCHC 32.9 RDW 18.6 H Plt Count 221 Seg Neutrophils % Not Reportable Lymphocytes % Not Reportable Monocytes % Not Reportable Eosinophils % Not Reportable Basophils % Not Reportable Absolute Neutrophils Not Reportable Absolute Lymphocytes Not Reportable Absolute Monocytes Not Reportable Absolute Eosinophils Not Reportable Absolute Basophils Not Reportable Sodium 138.0 Potassium 3.7 Chloride 98 Carbon Dioxide 29 Anion Gap 11 BUN 21 H Creatinine 0.49 L Est GFR ( Amer) > 60 Est GFR (Non-Af Amer) > 60 Glucose 139 H Calcium 8.9 11/03/16 10:10 Tracheal Aspirate Gram Stain - Final 11/03/16 10:10 Tracheal Aspirate Sputum Culture - Final Pseudomonas Aeruginosa Streptococcus Pneumoniae C.albicans/C.dubliniensis Normal Dang Absent Impressions: Abdomen/Pelvis CT 11/02/16 00:00 IMPRESSION: 1. FREE AIR AND FREE FLUID IN THE ABDOMEN CONSISTENT WITH A PERFORATED VISCUS. NO OBVIOUS SOURCE APPARENT. NO OTHER SIGNIFICANT FINDINGS IN THE ABDOMEN OR PELVIS. 2. MASS IN THE INFRAHILAR RIGHT LUNG SECONDARY TO KNOWN MALIGNANCY. KUB X-Ray 11/02/16 22:00 IMPRESSION: NASOGASTRIC TUBE WITH THE TIP IN THE DISTAL STOMACH. NO RADIOGRAPHIC EVIDENCE FOR ACUTE ABDOMINAL DISEASE. Head CT 11/05/16 00:00 IMPRESSION: No acute intracranial hemorrhage or acute territorial infarct. Interval improvement in the appearance of the brain with decrease in the hypodense mass at the posterior right parietal lobe and non visualization of the previously described masses at the superior right parietal lobe and right cerebellar hemisphere. Chest X-Ray 11/06/16 06:00 IMPRESSION: Interval development of faint bilateral perihilar ground-glass opacities, may represent mild pulmonary edema. Interval decrease in the airspace opacity at the right lung base. Emphysema. Assessment & Plan - Diagnosis (1) Gastric ulcer, acute with perforation Is this a current diagnosis for this admission?: Yes (2) Perforated bowel Is this a current diagnosis for this admission?: Yes Plan: It is 5 days status post exploratory laparotomy, Ra patch repair of prepyloric perforated gastric ulcer, doing well from a technical standpoint. Plan: 1. Will obtain contrast study through NG tube. No leak, and no evidence of gastric outlet obstruction, we will start tube feeds via nasogastric tube. 2. Will need to discuss advanced directives level of aggressiveness of care with patient and family while the patient is extubated. A family care conference may be appropriate. 3. We will also discuss role of continuing intravenous antibiotics at this stage of the patient's hospitalization
[2016-11-07] MEDS ORDERED: PANTOPRAZOLE SODIUM 40 MG VIAL IV ONE (11:15)
[2016-11-07] MEDS: CIPROFLOXACIN 400 MG/D5W RTU 400 MG/200 ML RTUPB IV SCH ×2 (11:48→22:55)
[2016-11-07] MEDS: LORAZEPAM INJ 2 MG/1 ML VIAL IV PRN (11:48)
[2016-11-07] MEDS: THIAMINE HCL 100 MG TABLET PO SCH (11:50)
--- NOTE | 2016-11-07 11:56 | RADIOLOGY REPORT (SQ) ---
EXAM DESCRIPTION: UGI SERIES COMPLETED DATE/TIME: 11/07/2016 11:13 am REASON FOR STUDY: Bile leak, gastric outlet obstruction; Gastrografi COMPARISON: Chest films 11/06/2016, 11/05/2016, 11/04/2016 CT abdomen pelvis 11/02/2016 TECHNIQUE: Patient is in the ICU, post repair of a perforated gastric ulcer. Study was done portabl y, 60 mL of Gastrografin was injected through the patient's pre-existing NG tube, and cereal radiogra phs were obtained in the AP, GOOD, and MALAGASY orientation. LIMITATIONS: None. FLUOROSCOPY TIME: No fluoroscopy FINDINGS: Iron Handler images demonstrate that the nasogastric tube tip and side port is in the stomach. T here is oral contrast from CT exam 11/02/2016 in the patient's transverse colon. Lung bases are clear. No upper abdominal free air. Images after Gastrografin was placed into the nasogastric tube demonstrates some thickened folds in t he gastric antrum. No extravasation from the stomach is seen. There is prompt gastric emptying into a normal appearing duodenum and proximal jejunum. IMPRESSION: Limited upper GI exam performed portably in the ICU. Prompt gastric emptying. No gross evidence of leakage of oral contrast from the stomach. Thickened gastric antrum folds. COMMENT: Quality ID [id number]: Final reports for procedures using fluoroscopy that document radiation exp osure indices, or exposure time and number of fluorographic images (if radiation exposure indices are not available) TECHNICAL DOCUMENTATION: JOB ID: [id number] [employer]- All Rights Reserved
--- NOTE | 2016-11-07 13:52 | PDOC PROGRESS REPORT ---
Subjective Progress Note for:: 11/07/16 Subjective:: required some assistance with BiPAP Physical Exam Vital Signs: Temp Pulse Resp BP Pulse Ox 98.1 F 85 16 162/81 H 100 11/07/16 08:00 11/07/16 08:00 11/07/16 08:00 11/07/16 08:00 11/07/16 08:00 Intake & Output 11/06/16 11/07/16 11/08/16 06:59 06:59 06:59 Intake Total 3232 2644 Output Total 6533 3800 150 Balance -3293 -1156 -150 Weight 60.5 kg 59 kg General appearance: PRESENT: no acute distress, disheveled, well-developed Head exam: PRESENT: atraumatic, normocephalic Eye exam: PRESENT: conjunctiva pale, EOMI Mouth exam: PRESENT: dry mucosa, neck supple, tongue midline Neck exam: ABSENT: carotid bruit, JVD, lymphadenopathy, thyromegaly Respiratory exam: PRESENT: decreased breath sounds, prolonged expiratory phas, rhonchi, symmetrical, unlabored, wheezes. ABSENT: crackles, rales, retraction, stridor Cardiovascular exam: PRESENT: RRR, +S1. ABSENT: irregular rhythm Pulses: PRESENT: normal radial pulses Rectal exam: PRESENT: deferred, other - s/p surgery Gentrourinary exam: PRESENT: indwelling catheter Musculoskeletal exam: PRESENT: normal inspection Neurological exam: PRESENT: awake Psychiatric exam: PRESENT: unusual affect Focused psych exam: PRESENT: delusional Skin exam: PRESENT: dry, warm Results Laboratory Results: 11/07/16 03:53 11/07/16 03:53 11/07/16 11/07/16 03:53 03:53 WBC 16.3 H RBC 3.86 L Hgb 13.0 L Hct 39.4 MCV 102 H MCH 33.6 H MCHC 32.9 RDW 18.6 H Plt Count 221 Seg Neutrophils % Not Reportable Lymphocytes % Not Reportable Monocytes % Not Reportable Eosinophils % Not Reportable Basophils % Not Reportable Absolute Neutrophils Not Reportable Absolute Lymphocytes Not Reportable Absolute Monocytes Not Reportable Absolute Eosinophils Not Reportable Absolute Basophils Not Reportable Sodium 138.0 Potassium 3.7 Chloride 98 Carbon Dioxide 29 Anion Gap 11 BUN 21 H Creatinine 0.49 L Est GFR ( Amer) > 60 Est GFR (Non-Af Amer) > 60 Glucose 139 H Calcium 8.9 11/03/16 10:10 Tracheal Aspirate Gram Stain - Final 11/03/16 10:10 Tracheal Aspirate Sputum Culture - Final Pseudomonas Aeruginosa Streptococcus Pneumoniae C.albicans/C.dubliniensis Normal Dang Absent Impressions: Abdomen/Pelvis CT 11/02/16 00:00 IMPRESSION: 1. FREE AIR AND FREE FLUID IN THE ABDOMEN CONSISTENT WITH A PERFORATED VISCUS. NO OBVIOUS SOURCE APPARENT. NO OTHER SIGNIFICANT FINDINGS IN THE ABDOMEN OR PELVIS. 2. MASS IN THE INFRAHILAR RIGHT LUNG SECONDARY TO KNOWN MALIGNANCY. KUB X-Ray 11/02/16 22:00 IMPRESSION: NASOGASTRIC TUBE WITH THE TIP IN THE DISTAL STOMACH. NO RADIOGRAPHIC EVIDENCE FOR ACUTE ABDOMINAL DISEASE. Head CT 11/05/16 00:00 IMPRESSION: No acute intracranial hemorrhage or acute territorial infarct. Interval improvement in the appearance of the brain with decrease in the hypodense mass at the posterior right parietal lobe and non visualization of the previously described masses at the superior right parietal lobe and right cerebellar hemisphere. Chest X-Ray 11/06/16 06:00 IMPRESSION: Interval development of faint bilateral perihilar ground-glass opacities, may represent mild pulmonary edema. Interval decrease in the airspace opacity at the right lung base. Emphysema. Assessment & Plan - Diagnosis (1) Pulmonary emphysema Qualifiers: Emphysema type: centrilobular Qualified Code(s): J43.2 - Centrilobular emphysema Is this a current diagnosis for this admission?: Yes (2) Brain lesion Is this a current diagnosis for this admission?: Yes (3) Perforated bowel Is this a current diagnosis for this admission?: Yes Plan: per surgery - Time Critical Time spent with patient: 25-34 minutes
[2016-11-07] MEDS ORDERED: ALBUTEROL SULFATE 0.042% NEB (1.25 MG/3 ML) AMPUL NEB PRN (16:00)
[2016-11-07] MEDS ORDERED: BISACODYL 10 MG SUPP.RECT PR ONE (19:00)
[2016-11-07] MEDS: IPRATROPIUM/ALBUTEROL 0.5-2.5 MG/3 ML AMPUL NEB SCH (20:48)
--- NOTE | 2016-11-07 20:57 | PDOC PROGRESS REPORT ---
Subjective Progress Note for:: 11/07/16 Subjective:: The patient was seen at the bedside this morning. He was found to be confused. He denied any current pain, but cannot fully assist with with ROS. Physical Exam Vital Signs: Temp Pulse Resp BP Pulse Ox 98.1 F 85 16 162/81 H 100 11/07/16 08:00 11/07/16 08:00 11/07/16 08:00 11/07/16 08:00 11/07/16 08:00 Intake & Output 11/06/16 11/07/16 11/08/16 06:59 06:59 06:59 Intake Total 3232 2644 Output Total 6525 3800 150 Balance -3293 -1156 -150 Weight 60.5 kg 59 kg GENERAL: Well-developed thin frail-appearing elderly white male resting in bed moaning and appearing uncomfortable. HEENT: Normocephalic atraumatic. Dentition is poor. NG tube is in place. It is drained minimal amount of brown gastric fluid. HEART: [Regular rate and rhythm. No murmurs, rubs or gallops.] LUNGS: [Coarse breath sounds bilaterally with equal rise and fall of the chest.] ABDOMEN: [Soft, nontender, nondistended with hypoactive bowel sounds. Incision site looks good soha are in place and are clean dry and intact] EXTREMETIES: [No clubbing, cyanosis or edema. 2+ peripheral pulses bilaterally. ] NEURO: [Awake oriented to self and city. The patient knows is in the hospital. He cannot tell me what happened to him or why he is here. Patient is not able to cooperate with a full cranial nerve exam. He moves all extremities. Results Laboratory Results: 11/07/16 03:53 11/07/16 03:53 11/07/16 11/07/16 03:53 03:53 WBC 16.3 H RBC 3.86 L Hgb 13.0 L Hct 39.4 MCV 102 H MCH 33.6 H MCHC 32.9 RDW 18.6 H Plt Count 221 Seg Neutrophils % Not Reportable Lymphocytes % Not Reportable Monocytes % Not Reportable Eosinophils % Not Reportable Basophils % Not Reportable Absolute Neutrophils Not Reportable Absolute Lymphocytes Not Reportable Absolute Monocytes Not Reportable Absolute Eosinophils Not Reportable Absolute Basophils Not Reportable Sodium 138.0 Potassium 3.7 Chloride 98 Carbon Dioxide 29 Anion Gap 11 BUN 21 H Creatinine 0.49 L Est GFR ( Amer) > 60 Est GFR (Non-Af Amer) > 60 Glucose 139 H Calcium 8.9 11/03/16 10:10 Tracheal Aspirate Gram Stain - Final 11/03/16 10:10 Tracheal Aspirate Sputum Culture - Final Pseudomonas Aeruginosa Streptococcus Pneumoniae C.albicans/C.dubliniensis Normal Dang Absent Impressions: Abdomen/Pelvis CT 11/02/16 00:00 IMPRESSION: 1. FREE AIR AND FREE FLUID IN THE ABDOMEN CONSISTENT WITH A PERFORATED VISCUS. NO OBVIOUS SOURCE APPARENT. NO OTHER SIGNIFICANT FINDINGS IN THE ABDOMEN OR PELVIS. 2. MASS IN THE INFRAHILAR RIGHT LUNG SECONDARY TO KNOWN MALIGNANCY. KUB X-Ray 11/02/16 22:00 IMPRESSION: NASOGASTRIC TUBE WITH THE TIP IN THE DISTAL STOMACH. NO RADIOGRAPHIC EVIDENCE FOR ACUTE ABDOMINAL DISEASE. Head CT 11/05/16 00:00 IMPRESSION: No acute intracranial hemorrhage or acute territorial infarct. Interval improvement in the appearance of the brain with decrease in the hypodense mass at the posterior right parietal lobe and non visualization of the previously described masses at the superior right parietal lobe and right cerebellar hemisphere. Chest X-Ray 11/06/16 06:00 IMPRESSION: Interval development of faint bilateral perihilar ground-glass opacities, may represent mild pulmonary edema. Interval decrease in the airspace opacity at the right lung base. Emphysema. Assessment & Plan - Diagnosis (1) Respiratory failure requiring intubation Is this a current diagnosis for this admission?: Yes Plan: S/p extubation 11/05/2016. Currently on nightly bilevel Pap. Maintaining O2 sats well. (2) Gastric ulcer, acute with perforation Is this a current diagnosis for this admission?: Yes Plan: Post op day 5. No Bowel movements since surgery. Management per primary team. Plan per surgery is for upper gi series. NGT clamped and output 100ml. Patient is on decadron. Add PPI bid (3) Hypertension Is this a current diagnosis for this admission?: Yes Plan: As needed hydralazine added yesterday. Continue to monitor. (4) Lung cancer, primary, with metastasis from lung to other site Is this a current diagnosis for this admission?: Yes Plan: Code status is currently FULL. Known mets to brain. Surgical service has begun discussion of code status with family. (5) Anemia Qualifiers: Anemia type: unspecified type Qualified Code(s): D64.9 - Anemia, unspecified Is this a current diagnosis for this admission?: Yes Plan: Precipitous drop after surgery. Patient's Hgb is now back up to baseline. Continue to monitor (6) COPD (chronic obstructive pulmonary disease) Qualifiers: COPD type: emphysema Plan: continue as needed and scheduled nebs (7) Chronic narcotic dependence Is this a current diagnosis for this admission?: Yes Plan: Patient is receiving dilaudid. He is also on this at home. I do not suspect narcotic withdrawal symptoms as part of his delirium. (8) Delirium Is this a current diagnosis for this admission?: Yes Plan: This is secondary to underlying medical condition and post op status - Time Time Spent with patient: 35 or more minutes - Inpatient Certification Medical Necessity: Need Close Monitoring Due to Risk of Patient Decompensation
[2016-11-07] MEDS: PANTOPRAZOLE SODIUM 40 MG VIAL IV SCH (22:55)
[2016-11-08] MEDS: IPRATROPIUM/ALBUTEROL 0.5-2.5 MG/3 ML AMPUL NEB SCH ×4 (02:56→20:01)
[2016-11-08 03:49] LABS: MEAN CORPUSCULAR VOLUME 101 fl (80-97)
[2016-11-08 03:54] LABS: HEMATOCRIT 32.3 % (37.9-51.0); HEMOGLOBIN 11.2 g/dL (13.5-17.0); HGB HCT DIFFERENCE 1.3; MEAN CORPUSCULAR HEMOGLOBIN 35.1 pg (27.0-33.4); MEAN CORPUSCULAR HGB CONC 34.8 g/dL (32.0-36.0); RED CELL DISTRIBUTION WIDTH 18.2 % (11.5-14.0); WHITE BLOOD COUNT 19.7 10^3/uL (4.0-10.5)
[2016-11-08 03:57] LABS: ALANINE AMINOTRANSFERASE 49 U/L (21-72); ALBUMIN 3.1 g/dL (3.5-5.0); ALKALINE PHOSPHATASE 62 U/L (38-126); ANION GAP 11 (5-19); ASPARTATE AMINO TRANSFERASE 31 U/L (17-59); BILIRUBIN,DIRECT 0.4 mg/dL (0.0-0.4); BILIRUBIN,TOTAL 0.8 mg/dL (0.2-1.3); BLOOD UREA NITROGEN 25 mg/dL (7-20); CALCIUM 8.3 mg/dL (8.4-10.2); CARBON DIOXIDE 23 mmol/L (22-30); CHLORIDE 102 mmol/L (98-107); CREATININE RESULT 0.47 mg/dL (0.52-1.25); GLUCOSE 126 mg/dL (75-110); POTASSIUM 3.5 mmol/L (3.6-5.0); SODIUM 135.5 mmol/L (137-145); TOTAL PROTEIN 5.2 g/dL (6.3-8.2)
[2016-11-08 04:10] LABS: BAND NEUTROPHILS % (MANUAL) 1 % (3-5); BASOPHILS % (MANUAL) 0 % (0-2); EOSINOPHILS % (MANUAL) 0 % (0-6); LYMPHOCYTES % (MANUAL) 2 % (13-45); TOTAL CELLS COUNTED 100
[2016-11-08 04:11] LABS: ANISOCYTOSIS 2+; POIKILOCYTOSIS SLIGHT; TEAR DROP CELLS SLIGHT; TOXIC GRANULATION 1+; TOXIC VACUOLATION PRESENT
--- NOTE | 2016-11-08 06:26 | RADIOLOGY REPORT (SQ) ---
EXAM DESCRIPTION: CHEST SINGLE VIEW COMPLETED DATE/TIME: 11/08/2016 6:14 am REASON FOR STUDY: resp failure COMPARISON: Chest x-ray 11/06/2014. EXAM PARAMETERS: NUMBER OF VIEWS: One view. TECHNIQUE: Single frontal radiographic view of the chest acquired. RADIATION DOSE: NA LIMITATIONS: None. FINDINGS: LUNGS AND PLEURA: No consolidation, pneumothorax or pleural effusion. MEDIASTINUM AND HILAR STRUCTURES: No masses. Contour normal. HEART AND VASCULAR STRUCTURES: Heart normal in size. Normal vasculature. BONES: No acute findings. HARDWARE: Interval removal of the enteric tube. IMPRESSION: No acute radiographic finding in the chest. TECHNICAL DOCUMENTATION: JOB ID: [id number]
[2016-11-08] MEDS: METRONIDAZOLE 500 MG/NS RTU 100 ML IV SCH (06:35)
[2016-11-08] MEDS: DEXAMETHASONE SOD PHOSPHATE INJ 4 MG/1 ML VIAL IV SCH (06:35)
[2016-11-08] MEDS: TOBRAMYCIN SULFATE NEB 40 MG/ML 30 ML NEB SCH ×2 (08:32→20:01)
[2016-11-08] MEDS ORDERED: DEXAMETHASONE SOD PHOSPHATE INJ 4 MG/1 ML VIAL IV SCH (09:29)
[2016-11-08] MEDS: PANTOPRAZOLE SODIUM 40 MG VIAL IV SCH ×2 (10:19→21:16)
[2016-11-08] MEDS: CIPROFLOXACIN 400 MG/D5W RTU 400 MG/200 ML RTUPB IV SCH (10:21)
[2016-11-08] MEDS: THIAMINE HCL 100 MG TABLET PO SCH (10:22)
[2016-11-08 11:01] LABS: APPEARANCE,URINE CLEAR; BILIRUBIN,URINE NEGATIVE (NEGATIVE); GLUCOSE, URINE NEGATIVE (NEGATIVE); KETONES,URINE 20 mg/dL (NEGATIVE); LEUKOCYTE ESTERASE,URINE TRACE (NEGATIVE); NITRITE,URINE NEGATIVE (NEGATIVE); PROTEIN,URINE 30 mg/dL (NEGATIVE); URINE SPECIFIC GRAVITY 1.024; UROBILINOGEN,URINE NEGATIVE mg/dL (<2.0)
[2016-11-08] MEDS: DEXAMETHASONE SOD PHOS INJ 10 MG/1 ML VIAL IV SCH ×4 (11:26→21:16)
--- NOTE | 2016-11-08 11:55 | PDOC PROGRESS REPORT ---
Subjective Progress Note for:: 11/08/16 Subjective:: Patient is out of bed into chair communicating with a facemask on. He is awake and alert Physical Exam Vital Signs: Temp Pulse Resp BP Pulse Ox 97.8 F 110 H 17 143/79 H 93 11/08/16 08:00 11/08/16 08:32 11/08/16 10:12 11/08/16 10:12 11/08/16 10:12 Intake & Output 11/07/16 11/08/16 11/09/16 06:59 06:59 06:59 Intake Total 2644 2802 Output Total 3800 1620 120 Balance -1156 1182 -120 Weight 59 kg 59 kg General appearance: PRESENT: mild distress Respiratory exam: PRESENT: rhonchi GI/Abdominal exam: PRESENT: other - Soft nontender no peritoneal signs no rigidity. Results Laboratory Results: 11/08/16 03:35 11/08/16 03:35 11/08/16 11/08/16 11/08/16 03:35 03:35 10:15 WBC 19.7 H RBC 3.20 L Hgb 11.2 L Hct 32.3 L MCV 101 H MCH 35.1 H MCHC 34.8 RDW 18.2 H Plt Count 206 Seg Neutrophils % Not Reportable Lymphocytes % Not Reportable Monocytes % Not Reportable Eosinophils % Not Reportable Basophils % Not Reportable Absolute Neutrophils Not Reportable Absolute Lymphocytes Not Reportable Absolute Monocytes Not Reportable Absolute Eosinophils Not Reportable Absolute Basophils Not Reportable Sodium 135.5 L Potassium 3.5 L Chloride 102 Carbon Dioxide 23 Anion Gap 11 BUN 25 H Creatinine 0.47 L Est GFR ( Amer) > 60 Est GFR (Non-Af Amer) > 60 Glucose 126 H Calcium 8.3 L Phosphorus 3.0 Magnesium 2.0 Total Bilirubin 0.8 AST 31 ALT 49 Alkaline Phosphatase 62 Total Protein 5.2 L Albumin 3.1 L Urine Color YELLOW Urine Appearance CLEAR Urine pH 6.0 Ur Specific [place] 1.024 Urine Protein 30 H Urine Glucose (UA) NEGATIVE Urine Ketones 20 H Urine Blood NEGATIVE Urine Nitrite NEGATIVE Ur Leukocyte Esterase TRACE H Urine WBC (Auto) 1 Urine RBC (Auto) 21 Impressions: Abdomen/Pelvis CT 11/02/16 00:00 IMPRESSION: 1. FREE AIR AND FREE FLUID IN THE ABDOMEN CONSISTENT WITH A PERFORATED VISCUS. NO OBVIOUS SOURCE APPARENT. NO OTHER SIGNIFICANT FINDINGS IN THE ABDOMEN OR PELVIS. 2. MASS IN THE INFRAHILAR RIGHT LUNG SECONDARY TO KNOWN MALIGNANCY. KUB X-Ray 11/02/16 22:00 IMPRESSION: NASOGASTRIC TUBE WITH THE TIP IN THE DISTAL STOMACH. NO RADIOGRAPHIC EVIDENCE FOR ACUTE ABDOMINAL DISEASE. Head CT 11/05/16 00:00 IMPRESSION: No acute intracranial hemorrhage or acute territorial infarct. Interval improvement in the appearance of the brain with decrease in the hypodense mass at the posterior right parietal lobe and non visualization of the previously described masses at the superior right parietal lobe and right cerebellar hemisphere. Upper GI Series 11/07/16 08:36 IMPRESSION: Limited upper GI exam performed portably in the ICU. Prompt gastric emptying. No gross evidence of leakage of oral contrast from the stomach. Thickened gastric antrum folds. Chest X-Ray 11/08/16 06:00 IMPRESSION: No acute radiographic finding in the chest. Assessment & Plan - Diagnosis (1) Gastric ulcer, acute with perforation Is this a current diagnosis for this admission?: Yes Plan: Patient is now 6 days status post exploratory laparotomy, Ra patch repair of prepyloric ulcer. Doing well. Yesterday he had a contrast study which showed no evidence of gastric leak or obstruction. Plan of the day: 1. Will discontinue Valladares catheter 2. Start clear liquid sips under supervision 3. Discontinue IV antibiotics; patient does have a leukocytosis. He may developing a pulmonary infection and I would suggest obtaining sputum cultures if he spikes a fever. 4. I did spend a fair amount of time with patient's sister discussing levels of aggressiveness of care. At that discussion, the patient's sister stated that the patient would not want reintubation, or CPR. Plan what a full code involves at [facility] versus a DO NOT RESUSCITATE assignment. I do not think she is quite ready to activate the DO NOT RESUSCITATE. The above discussed with nursing staff and hospitalist as well. 5. I suggest we keep the patient in the ICU at least for today, work on his transfers etc. (2) Perforated bowel Is this a current diagnosis for this admission?: Yes
[2016-11-08] MEDS: POTASSIUM CHLORIDE 20 MEQ/50 ML RTU IV SCH ×3 (15:33→21:12)
--- NOTE | 2016-11-08 17:44 | PDOC PROGRESS REPORT ---
Subjective Progress Note for:: 11/08/16 Subjective:: doing better nasal cannula day decrease in lethargy Physical Exam Vital Signs: Temp Pulse Resp BP Pulse Ox 97.8 F 110 H 17 143/79 H 93 11/08/16 08:00 11/08/16 08:32 11/08/16 10:12 11/08/16 10:12 11/08/16 10:12 Intake & Output 11/07/16 11/08/16 11/09/16 06:59 06:59 06:59 Intake Total 2644 2802 Output Total 3800 1620 120 Balance -1156 1182 -120 Weight 59 kg 59 kg General appearance: PRESENT: no acute distress, disheveled, well-developed Head exam: PRESENT: atraumatic, normocephalic Eye exam: PRESENT: conjunctiva pale, EOMI Mouth exam: PRESENT: dry mucosa, neck supple, tongue midline Neck exam: ABSENT: carotid bruit, JVD, lymphadenopathy, thyromegaly Respiratory exam: PRESENT: decreased breath sounds, rales, retraction, rhonchi. ABSENT: stridor, tachypnea, unlabored, wheezes - Left jeannette thorax Cardiovascular exam: PRESENT: RRR, +S1, +S2 Pulses: PRESENT: normal radial pulses GI/Abdominal exam: PRESENT: other - s/p surg Rectal exam: PRESENT: deferred Gentrourinary exam: PRESENT: indwelling catheter Musculoskeletal exam: PRESENT: normal inspection Neurological exam: PRESENT: awake Skin exam: PRESENT: dry Results Laboratory Results: 11/08/16 03:35 11/08/16 03:35 11/08/16 11/08/16 11/08/16 03:35 03:35 10:15 WBC 19.7 H RBC 3.20 L Hgb 11.2 L Hct 32.3 L MCV 101 H MCH 35.1 H MCHC 34.8 RDW 18.2 H Plt Count 206 Seg Neutrophils % Not Reportable Lymphocytes % Not Reportable Monocytes % Not Reportable Eosinophils % Not Reportable Basophils % Not Reportable Absolute Neutrophils Not Reportable Absolute Lymphocytes Not Reportable Absolute Monocytes Not Reportable Absolute Eosinophils Not Reportable Absolute Basophils Not Reportable Sodium 135.5 L Potassium 3.5 L Chloride 102 Carbon Dioxide 23 Anion Gap 11 BUN 25 H Creatinine 0.47 L Est GFR ( Amer) > 60 Est GFR (Non-Af Amer) > 60 Glucose 126 H Calcium 8.3 L Phosphorus 3.0 Magnesium 2.0 Total Bilirubin 0.8 AST 31 ALT 49 Alkaline Phosphatase 62 Total Protein 5.2 L Albumin 3.1 L Urine Color YELLOW Urine Appearance CLEAR Urine pH 6.0 Ur Specific [place] 1.024 Urine Protein 30 H Urine Glucose (UA) NEGATIVE Urine Ketones 20 H Urine Blood NEGATIVE Urine Nitrite NEGATIVE Ur Leukocyte Esterase TRACE H Urine WBC (Auto) 1 Urine RBC (Auto) 21 Impressions: Abdomen/Pelvis CT 11/02/16 00:00 IMPRESSION: 1. FREE AIR AND FREE FLUID IN THE ABDOMEN CONSISTENT WITH A PERFORATED VISCUS. NO OBVIOUS SOURCE APPARENT. NO OTHER SIGNIFICANT FINDINGS IN THE ABDOMEN OR PELVIS. 2. MASS IN THE INFRAHILAR RIGHT LUNG SECONDARY TO KNOWN MALIGNANCY. KUB X-Ray 11/02/16 22:00 IMPRESSION: NASOGASTRIC TUBE WITH THE TIP IN THE DISTAL STOMACH. NO RADIOGRAPHIC EVIDENCE FOR ACUTE ABDOMINAL DISEASE. Head CT 11/05/16 00:00 IMPRESSION: No acute intracranial hemorrhage or acute territorial infarct. Interval improvement in the appearance of the brain with decrease in the hypodense mass at the posterior right parietal lobe and non visualization of the previously described masses at the superior right parietal lobe and right cerebellar hemisphere. Upper GI Series 11/07/16 08:36 IMPRESSION: Limited upper GI exam performed portably in the ICU. Prompt gastric emptying. No gross evidence of leakage of oral contrast from the stomach. Thickened gastric antrum folds. Chest X-Ray 11/08/16 06:00 IMPRESSION: No acute radiographic finding in the chest. Assessment & Plan - Diagnosis (1) Pulmonary emphysema Qualifiers: Emphysema type: centrilobular Qualified Code(s): J43.2 - Centrilobular emphysema Is this a current diagnosis for this admission?: Yes Plan: continues to improve (2) Brain lesion Is this a current diagnosis for this admission?: Yes Plan: receiving high dose decadron (3) Perforated bowel Is this a current diagnosis for this admission?: Yes Plan: as per pcp - Time Critical Time spent with patient: 25-34 minutes
--- NOTE | 2016-11-08 17:48 | PDOC PROGRESS REPORT ---
Subjective Progress Note for:: 11/08/16 Subjective:: The patient was seen at the bedside this morning. She was found sitting in a recliner. He is quite disgruntled even when working with physical therapy. He tells me that he lives with his hcc coders Mr. Sal Golden. He lives in his own home. He is able to tell me about his past medical history. He denies any pain. Physical Exam Vital Signs: Temp Pulse Resp BP Pulse Ox 97.9 F 76 21 H 125/82 93 11/08/16 00:00 11/08/16 02:58 11/08/16 06:12 11/08/16 06:12 11/08/16 06:12 Intake & Output 11/07/16 11/08/16 11/09/16 06:59 06:59 06:59 Intake Total 2644 2802 Output Total 3800 1620 Balance -1156 1182 Weight 59 kg GENERAL: Well-developed thin frail-appearing elderly white male resting in his recliner currently in no acute distress, but ornery. He is working with PT at the end of the interview. HEENT: Normocephalic atraumatic. Dentition is poor. NG tube is out. HEART: [tachy with movement and attempts to stand with PT. He readily comes back down from 150 to 100 with cessation of activity.] LUNGS: [Coarse breath sounds bilaterally (less when compared to yesterday) with equal rise and fall of the chest.] ABDOMEN: [Soft, nontender, nondistended with hypoactive bowel sounds. Incision site looks good soha are in place and are clean dry and intact] EXTREMETIES: [No clubbing, cyanosis or edema. 2+ peripheral pulses bilaterally. ] NEURO: [Awake, alert oriented x3. He is able to tell me that he had surgery and that he has lung cancer with mets to brain. He shares that he has a care give, Mr Golden, that lives at home with him. He refuses to let PT use the safety belt with him. It is a two-person assist to stand. He wanted to prove that he can walk on his own, but his heart rate shot up and PT helped him sit back down. Results Laboratory Results: 11/08/16 03:35 11/08/16 03:35 09/09/17 09/09/17 03:35 03:35 WBC 19.7 H RBC 3.20 L Hgb 11.2 L Hct 32.3 L MCV 101 H MCH 35.1 H MCHC 34.8 RDW 18.2 H Plt Count 206 Seg Neutrophils % Not Reportable Lymphocytes % Not Reportable Monocytes % Not Reportable Eosinophils % Not Reportable Basophils % Not Reportable Absolute Neutrophils Not Reportable Absolute Lymphocytes Not Reportable Absolute Monocytes Not Reportable Absolute Eosinophils Not Reportable Absolute Basophils Not Reportable Sodium 135.5 L Potassium 3.5 L Chloride 102 Carbon Dioxide 23 Anion Gap 11 BUN 25 H Creatinine 0.47 L Est GFR ( Amer) > 60 Est GFR (Non-Af Amer) > 60 Glucose 126 H Calcium 8.3 L Phosphorus 3.0 Magnesium 2.0 Total Bilirubin 0.8 AST 31 ALT 49 Alkaline Phosphatase 62 Total Protein 5.2 L Albumin 3.1 L Impressions: Abdomen/Pelvis CT 11/02/16 00:00 IMPRESSION: 1. FREE AIR AND FREE FLUID IN THE ABDOMEN CONSISTENT WITH A PERFORATED VISCUS. NO OBVIOUS SOURCE APPARENT. NO OTHER SIGNIFICANT FINDINGS IN THE ABDOMEN OR PELVIS. 2. MASS IN THE INFRAHILAR RIGHT LUNG SECONDARY TO KNOWN MALIGNANCY. KUB X-Ray 11/02/16 22:00 IMPRESSION: NASOGASTRIC TUBE WITH THE TIP IN THE DISTAL STOMACH. NO RADIOGRAPHIC EVIDENCE FOR ACUTE ABDOMINAL DISEASE. Head CT 11/05/16 00:00 IMPRESSION: No acute intracranial hemorrhage or acute territorial infarct. Interval improvement in the appearance of the brain with decrease in the hypodense mass at the posterior right parietal lobe and non visualization of the previously described masses at the superior right parietal lobe and right cerebellar hemisphere. Upper GI Series 11/07/16 08:36 IMPRESSION: Limited upper GI exam performed portably in the ICU. Prompt gastric emptying. No gross evidence of leakage of oral contrast from the stomach. Thickened gastric antrum folds. Chest X-Ray 11/08/16 06:00 IMPRESSION: No acute radiographic finding in the chest. Assessment & Plan - Diagnosis (1) Respiratory failure requiring intubation Is this a current diagnosis for this admission?: Yes Plan: S/p extubation 11/04/2016. Currently on nightly bilevel Pap. Maintaining O2 sats well. Off of nasal canula O2. (2) Gastric ulcer, acute with perforation Is this a current diagnosis for this admission?: Yes Plan: Post op day 6. No Bowel movements since surgery. Management per primary team. Upper GI series looked good. Surgery plans to discontinue abx today and attempt sips. (3) Hypertension Is this a current diagnosis for this admission?: Yes Plan: As needed hydralazine. Continue to monitor. No home medications for antihypertensives listed. Patient is hypertensive at times and certainly tachycardic- even at rest throughout the day yesterday. Will monitor for the day and consider adding metoprolol 12.5 bid depending on today's values. (4) Lung cancer, primary, with metastasis from lung to other site Is this a current diagnosis for this admission?: Yes Plan: Code status is currently FULL. Known mets to brain. Patient follows at [facility] and has had radiation and chemo. Surgical service has begun discussion of code status with family. (5) Anemia Qualifiers: Anemia type: unspecified type Qualified Code(s): D64.9 - Anemia, unspecified Is this a current diagnosis for this admission?: Yes Plan: Precipitous drop after surgery. Patient's Hgb is now back up to baseline. Continue to monitor (6) COPD (chronic obstructive pulmonary disease) Qualifiers: COPD type: emphysema Plan: continue as needed and scheduled nebs (7) Chronic narcotic dependence Is this a current diagnosis for this admission?: Yes Plan: Patient is receiving dilaudid. He is also on this at home. I do not suspect narcotic withdrawal symptoms as part of his delirium. (8) Delirium Is this a current diagnosis for this admission?: Yes Plan: This is secondary to underlying medical condition and post op status. Resolved (9) Leukocytosis (leucocytosis) Plan: In part reactive to recent perforation and surgery. WBC 19. Patient is also on chronic steroids for brain mets. WBCs are trending up. No fevers. Will send for UA since patient has gaines. Surgery plans to discontinue today along with abx. Trach aspirate noted, but CXR remains clear. Continue to monitor. - Time Time Spent with patient: 25-34 minutes Anticipated discharge: Home with Homehealth - Inpatient Certification Medical Necessity: Need Close Monitoring Due to Risk of Patient Decompensation
[2016-11-09] MEDS: IPRATROPIUM/ALBUTEROL 0.5-2.5 MG/3 ML AMPUL NEB SCH ×4 (02:17→20:22)
[2016-11-09] MEDS: NORMAL SALINE 1000 ML 1,000 ML IV PRN (04:07)
[2016-11-09] MEDS: DEXAMETHASONE SOD PHOS INJ 10 MG/1 ML VIAL IV SCH ×6 (04:07→21:53)
[2016-11-09 06:27] LABS: HEMATOCRIT 28.7 % (37.9-51.0); HEMOGLOBIN 9.5 g/dL (13.5-17.0); HGB HCT DIFFERENCE -0.2; MEAN CORPUSCULAR HEMOGLOBIN 33.8 pg (27.0-33.4); MEAN CORPUSCULAR VOLUME 103 fl (80-97); RED CELL DISTRIBUTION WIDTH 18.5 % (11.5-14.0); WHITE BLOOD COUNT 12.7 10^3/uL (4.0-10.5)
[2016-11-09 06:30] LABS: ANION GAP 6 (5-19); BLOOD UREA NITROGEN 15 mg/dL (7-20); CALCIUM 8.2 mg/dL (8.4-10.2); CARBON DIOXIDE 24 mmol/L (22-30); CHLORIDE 105 mmol/L (98-107); CREATININE RESULT 0.46 mg/dL (0.52-1.25); GLUCOSE 111 mg/dL (75-110); MAGNESIUM 1.9 mg/dL (1.6-2.3); POTASSIUM 3.5 mmol/L (3.6-5.0); SODIUM 135.3 mmol/L (137-145)
[2016-11-09 07:00] LABS: BAND NEUTROPHILS % (MANUAL) 3 % (3-5); BASOPHILS % (MANUAL) 0 % (0-2); EOSINOPHILS % (MANUAL) 0 % (0-6); LYMPHOCYTES % (MANUAL) 5 % (13-45); TOTAL CELLS COUNTED 100
[2016-11-09 07:04] LABS: TOXIC GRANULATION 1+
[2016-11-09 07:05] LABS: ANISOCYTOSIS 2+; BURR CELLS SLIGHT; OVALOCYTES 1+; POIKILOCYTOSIS 1+; TEAR DROP CELLS 1+
[2016-11-09] MEDS: TOBRAMYCIN SULFATE NEB 40 MG/ML 30 ML NEB SCH ×2 (08:09→20:22)
[2016-11-09] MEDS: PANTOPRAZOLE SODIUM 40 MG VIAL IV SCH ×2 (09:30→21:53)
[2016-11-09] MEDS: THIAMINE HCL 100 MG TABLET PO SCH (09:30)
[2016-11-09] MEDS: POTASSIUM CHLORIDE 20 MEQ/50 ML RTU IV SCH ×3 (09:31→14:18)
--- NOTE | 2016-11-09 10:04 | PDOC PROGRESS REPORT ---
Subjective Progress Note for:: 11/09/16 Subjective:: Patient is now 7 day status post patient will occur laparotomy, oversewing of perforated prepyloric ulcer. He continues to do well, clear liquids. Physical Exam Vital Signs: Temp Pulse Resp BP Pulse Ox 98.0 F 89 17 138/76 H 96 11/09/16 08:00 11/09/16 08:09 11/09/16 09:38 11/09/16 09:38 11/09/16 09:38 Intake & Output 11/08/16 11/09/16 11/10/16 06:59 06:59 06:59 Intake Total 2802 2424 Output Total 1620 650 160 Balance 1182 1774 -160 Weight 59 kg 61.3 kg General appearance: PRESENT: mild distress Respiratory exam: PRESENT: other - Mild respiratory distress when moving around GI/Abdominal exam: PRESENT: other - soha intact Results Laboratory Results: 11/09/16 05:51 11/09/16 05:51 11/08/16 11/09/16 11/09/16 10:15 05:51 05:51 WBC 12.7 H RBC 2.80 L Hgb 9.5 L Hct 28.7 L MCV 103 H MCH 33.8 H MCHC 33.0 RDW 18.5 H Plt Count 176 Seg Neutrophils % Not Reportable Lymphocytes % Not Reportable Monocytes % Not Reportable Eosinophils % Not Reportable Basophils % Not Reportable Absolute Neutrophils Not Reportable Absolute Lymphocytes Not Reportable Absolute Monocytes Not Reportable Absolute Eosinophils Not Reportable Absolute Basophils Not Reportable Sodium 135.3 L Potassium 3.5 L Chloride 105 Carbon Dioxide 24 Anion Gap 6 BUN 15 Creatinine 0.46 L Est GFR ( Amer) > 60 Est GFR (Non-Af Amer) > 60 Glucose 111 H Calcium 8.2 L Magnesium 1.9 Urine Color YELLOW Urine Appearance CLEAR Urine pH 6.0 Ur Specific [place] 1.024 Urine Protein 30 H Urine Glucose (UA) NEGATIVE Urine Ketones 20 H Urine Blood NEGATIVE Urine Nitrite NEGATIVE Ur Leukocyte Esterase TRACE H Urine WBC (Auto) 1 Urine RBC (Auto) 21 Impressions: Abdomen/Pelvis CT 11/02/16 00:00 IMPRESSION: 1. FREE AIR AND FREE FLUID IN THE ABDOMEN CONSISTENT WITH A PERFORATED VISCUS. NO OBVIOUS SOURCE APPARENT. NO OTHER SIGNIFICANT FINDINGS IN THE ABDOMEN OR PELVIS. 2. MASS IN THE INFRAHILAR RIGHT LUNG SECONDARY TO KNOWN MALIGNANCY. KUB X-Ray 11/02/16 22:00 IMPRESSION: NASOGASTRIC TUBE WITH THE TIP IN THE DISTAL STOMACH. NO RADIOGRAPHIC EVIDENCE FOR ACUTE ABDOMINAL DISEASE. Head CT 11/05/16 00:00 IMPRESSION: No acute intracranial hemorrhage or acute territorial infarct. Interval improvement in the appearance of the brain with decrease in the hypodense mass at the posterior right parietal lobe and non visualization of the previously described masses at the superior right parietal lobe and right cerebellar hemisphere. Upper GI Series 11/07/16 08:36 IMPRESSION: Limited upper GI exam performed portably in the ICU. Prompt gastric emptying. No gross evidence of leakage of oral contrast from the stomach. Thickened gastric antrum folds. Chest X-Ray 11/08/16 06:00 IMPRESSION: No acute radiographic finding in the chest. Assessment & Plan - Diagnosis (1) Gastric ulcer, acute with perforation Is this a current diagnosis for this admission?: Yes Plan: Patient postoperative day 7 doing well status post exploratory laparotomy, washout and closure of Ra patch ulcer. Patient tolerating clear liquid diet , transferring from bed to chair, voiding. Antibiotics have been discontinued. Ongoing issues include maintaining orientation, increasing mobility, and continuing pulmonary toilet. Plan: 1. We will transfer to monitored bed upstairs 2. Continue vigorous pulmonary toilet 3. Increase diet to full liquids 4. Provide potassium replacement again today. 5. Anticipate discharge in the next 24-48 hours if he continues to improve. (2) Perforated bowel Is this a current diagnosis for this admission?: Yes
[2016-11-09] MEDS: HYDROMORPHONE HCL INJ/PF 2 MG/ML AMPULE IV PRN ×2 (14:17→20:06)
--- NOTE | 2016-11-09 16:12 | PDOC PROGRESS REPORT ---
Subjective Progress Note for:: 11/09/16 Subjective:: The patient was seen at the bedside today. He has no complaints. No acute events overnight. He put out 2 large bowel movements in the last 24 hours. He states he wants to go home. Physical Exam Vital Signs: Temp Pulse Resp BP Pulse Ox 98.7 F 85 18 153/74 H 95 11/09/16 14:00 11/09/16 13:42 11/09/16 14:00 11/09/16 13:38 11/09/16 14:00 Intake & Output 11/08/16 11/09/16 11/10/16 06:59 06:59 06:59 Intake Total 2802 2424 Output Total 1620 650 860 Balance 1182 1774 -860 Weight 59 kg 61.3 kg GENERAL: Well-developed thin frail-appearing elderly white male resting in bed currently in no acute distress watching tv. HEART: [Regular rate and rhythm. ?murmur. No gallops or rubs.] LUNGS: [Less course breath sounds with equal rise and fall of the chest.] ABDOMEN: [Soft, nontender, nondistended with hypoactive bowel sounds. Incision site looks good soha are in place and are clean dry and intact] EXTREMETIES: [No clubbing, cyanosis or edema. 2+ peripheral pulses bilaterally. ] NEURO: [Awake, alert oriented x3. Cranial nerves are grossly intact. Results Laboratory Results: 11/09/16 05:51 11/09/16 05:51 11/09/16 11/09/16 05:51 05:51 WBC 12.7 H RBC 2.80 L Hgb 9.5 L Hct 28.7 L MCV 103 H MCH 33.8 H MCHC 33.0 RDW 18.5 H Plt Count 176 Seg Neutrophils % Not Reportable Lymphocytes % Not Reportable Monocytes % Not Reportable Eosinophils % Not Reportable Basophils % Not Reportable Absolute Neutrophils Not Reportable Absolute Lymphocytes Not Reportable Absolute Monocytes Not Reportable Absolute Eosinophils Not Reportable Absolute Basophils Not Reportable Sodium 135.3 L Potassium 3.5 L Chloride 105 Carbon Dioxide 24 Anion Gap 6 BUN 15 Creatinine 0.46 L Est GFR ( Amer) > 60 Est GFR (Non-Af Amer) > 60 Glucose 111 H Calcium 8.2 L Magnesium 1.9 Impressions: Abdomen/Pelvis CT 11/02/16 00:00 IMPRESSION: 1. FREE AIR AND FREE FLUID IN THE ABDOMEN CONSISTENT WITH A PERFORATED VISCUS. NO OBVIOUS SOURCE APPARENT. NO OTHER SIGNIFICANT FINDINGS IN THE ABDOMEN OR PELVIS. 2. MASS IN THE INFRAHILAR RIGHT LUNG SECONDARY TO KNOWN MALIGNANCY. KUB X-Ray 11/02/16 22:00 IMPRESSION: NASOGASTRIC TUBE WITH THE TIP IN THE DISTAL STOMACH. NO RADIOGRAPHIC EVIDENCE FOR ACUTE ABDOMINAL DISEASE. Head CT 11/05/16 00:00 IMPRESSION: No acute intracranial hemorrhage or acute territorial infarct. Interval improvement in the appearance of the brain with decrease in the hypodense mass at the posterior right parietal lobe and non visualization of the previously described masses at the superior right parietal lobe and right cerebellar hemisphere. Upper GI Series 11/07/16 08:36 IMPRESSION: Limited upper GI exam performed portably in the ICU. Prompt gastric emptying. No gross evidence of leakage of oral contrast from the stomach. Thickened gastric antrum folds. Chest X-Ray 11/08/16 06:00 IMPRESSION: No acute radiographic finding in the chest. Assessment & Plan - Diagnosis (1) Respiratory failure requiring intubation Is this a current diagnosis for this admission?: Yes Plan: S/p extubation 11/04/2016. Currently on nightly bilevel Pap. Maintaining O2 sats well. Off of nasal canula O2. (2) Gastric ulcer, acute with perforation Is this a current diagnosis for this admission?: Yes Plan: Post op day 7. 2 bowel movements overnight. Management per primary team. Upper GI series looked good. (3) Hypertension Is this a current diagnosis for this admission?: Yes Plan: As needed hydralazine. Continue to monitor. No home medications for antihypertensives listed. Patient is hypertensive and tachycardic at times. (4) Lung cancer, primary, with metastasis from lung to other site Is this a current diagnosis for this admission?: Yes Plan: Code status is currently FULL. Known mets to brain. Patient follows at [facility] and has had radiation and chemo. Surgical service has begun discussion of code status with family. (5) Anemia Qualifiers: Anemia type: unspecified type Qualified Code(s): D64.9 - Anemia, unspecified Is this a current diagnosis for this admission?: Yes Plan: Precipitous drop after surgery. Patient's Hgb is now back up to baseline. Continue to monitor (6) COPD (chronic obstructive pulmonary disease) Qualifiers: COPD type: emphysema Plan: continue as needed and scheduled nebs (7) Chronic narcotic dependence Is this a current diagnosis for this admission?: Yes Plan: Patient is receiving dilaudid. He is also on this at home. I do not suspect narcotic withdrawal symptoms as part of his delirium. (8) Delirium Is this a current diagnosis for this admission?: Yes Plan: This is secondary to underlying medical condition and post op status. Resolved (9) Leukocytosis (leucocytosis) Plan: In part reactive to recent perforation and surgery. WBC 19. Patient is also on chronic steroids for brain mets. WBCs are trending up. No fevers. Continue to monitor. - Time Time Spent with patient: 15-24 minutes
[2016-11-09] MEDS ORDERED: POTASSIUM CHLORIDE 10 MEQ TABLET.SA PO ONE (16:30)
--- NOTE | 2016-11-09 17:31 | PDOC PROGRESS REPORT ---
Subjective Progress Note for:: 11/09/16 Subjective:: more alert Physical Exam Vital Signs: Temp Pulse Resp BP Pulse Ox 98.0 F 89 20 138/76 H 96 11/09/16 08:00 11/09/16 08:09 11/09/16 10:00 11/09/16 09:38 11/09/16 10:00 Intake & Output 11/08/16 11/09/16 11/10/16 06:59 06:59 06:59 Intake Total 2802 2424 Output Total 1620 650 160 Balance 1182 1774 -160 Weight 59 kg 61.3 kg General appearance: PRESENT: no acute distress, disheveled, thin Head exam: PRESENT: atraumatic, normocephalic Eye exam: PRESENT: conjunctiva pale, EOMI Mouth exam: PRESENT: dry mucosa, neck supple, tongue midline Neck exam: ABSENT: carotid bruit, JVD, lymphadenopathy, thyromegaly Respiratory exam: PRESENT: decreased breath sounds, prolonged expiratory phas, rhonchi, symmetrical, unlabored, other Cardiovascular exam: PRESENT: RRR, +S1, +S2 Pulses: PRESENT: normal radial pulses GI/Abdominal exam: PRESENT: other - s/p surgery Rectal exam: PRESENT: deferred Gentrourinary exam: PRESENT: indwelling catheter Musculoskeletal exam: PRESENT: normal inspection Neurological exam: PRESENT: awake Skin exam: PRESENT: dry, warm Results Laboratory Results: 11/09/16 05:51 11/09/16 05:51 11/09/16 11/09/16 05:51 05:51 WBC 12.7 H RBC 2.80 L Hgb 9.5 L Hct 28.7 L MCV 103 H MCH 33.8 H MCHC 33.0 RDW 18.5 H Plt Count 176 Seg Neutrophils % Not Reportable Lymphocytes % Not Reportable Monocytes % Not Reportable Eosinophils % Not Reportable Basophils % Not Reportable Absolute Neutrophils Not Reportable Absolute Lymphocytes Not Reportable Absolute Monocytes Not Reportable Absolute Eosinophils Not Reportable Absolute Basophils Not Reportable Sodium 135.3 L Potassium 3.5 L Chloride 105 Carbon Dioxide 24 Anion Gap 6 BUN 15 Creatinine 0.46 L Est GFR ( Amer) > 60 Est GFR (Non-Af Amer) > 60 Glucose 111 H Calcium 8.2 L Magnesium 1.9 Impressions: Abdomen/Pelvis CT 11/02/16 00:00 IMPRESSION: 1. FREE AIR AND FREE FLUID IN THE ABDOMEN CONSISTENT WITH A PERFORATED VISCUS. NO OBVIOUS SOURCE APPARENT. NO OTHER SIGNIFICANT FINDINGS IN THE ABDOMEN OR PELVIS. 2. MASS IN THE INFRAHILAR RIGHT LUNG SECONDARY TO KNOWN MALIGNANCY. KUB X-Ray 11/02/16 22:00 IMPRESSION: NASOGASTRIC TUBE WITH THE TIP IN THE DISTAL STOMACH. NO RADIOGRAPHIC EVIDENCE FOR ACUTE ABDOMINAL DISEASE. Head CT 11/05/16 00:00 IMPRESSION: No acute intracranial hemorrhage or acute territorial infarct. Interval improvement in the appearance of the brain with decrease in the hypodense mass at the posterior right parietal lobe and non visualization of the previously described masses at the superior right parietal lobe and right cerebellar hemisphere. Upper GI Series 11/07/16 08:36 IMPRESSION: Limited upper GI exam performed portably in the ICU. Prompt gastric emptying. No gross evidence of leakage of oral contrast from the stomach. Thickened gastric antrum folds. Chest X-Ray 11/08/16 06:00 IMPRESSION: No acute radiographic finding in the chest. Assessment & Plan - Diagnosis (1) Pulmonary emphysema Qualifiers: Emphysema type: centrilobular Qualified Code(s): J43.2 - Centrilobular emphysema Is this a current diagnosis for this admission?: Yes Plan: bs continue to improve (2) Brain lesion Is this a current diagnosis for this admission?: Yes (3) Perforated bowel Is this a current diagnosis for this admission?: Yes Plan: as per pcp - Time Critical Time spent with patient: 25-34 minutes
[2016-11-10] MEDS: IPRATROPIUM/ALBUTEROL 0.5-2.5 MG/3 ML AMPUL NEB SCH ×2 (02:35→07:44)
[2016-11-10] MEDS: DEXAMETHASONE SOD PHOS INJ 10 MG/1 ML VIAL IV SCH ×3 (02:56→09:39)
[2016-11-10] MEDS: NORMAL SALINE 1000 ML 1,000 ML IV PRN (03:00)
[2016-11-10 05:24] LABS: HEMATOCRIT 29.2 % (37.9-51.0); HEMOGLOBIN 9.7 g/dL (13.5-17.0); HGB HCT DIFFERENCE -0.1; MEAN CORPUSCULAR HEMOGLOBIN 34.1 pg (27.0-33.4); MEAN CORPUSCULAR HGB CONC 33.4 g/dL (32.0-36.0); MEAN CORPUSCULAR VOLUME 102 fl (80-97); RED BLOOD COUNT 2.86 10^6/uL (4.35-5.55); RED CELL DISTRIBUTION WIDTH 17.6 % (11.5-14.0); WHITE BLOOD COUNT 17.4 10^3/uL (4.0-10.5)
[2016-11-10 05:41] LABS: ALANINE AMINOTRANSFERASE 40 U/L (21-72); ALBUMIN 2.7 g/dL (3.5-5.0); ALKALINE PHOSPHATASE 54 U/L (38-126); ANION GAP 6 (5-19); ASPARTATE AMINO TRANSFERASE 31 U/L (17-59); BILIRUBIN,DIRECT 0.3 mg/dL (0.0-0.4); BILIRUBIN,TOTAL 0.5 mg/dL (0.2-1.3); BLOOD UREA NITROGEN 14 mg/dL (7-20); CALCIUM 8.4 mg/dL (8.4-10.2); CARBON DIOXIDE 24 mmol/L (22-30); CHLORIDE 103 mmol/L (98-107); GLUCOSE 129 mg/dL (75-110); MAGNESIUM 1.8 mg/dL (1.6-2.3); POTASSIUM 3.9 mmol/L (3.6-5.0); SODIUM 132.9 mmol/L (137-145); TOTAL PROTEIN 4.7 g/dL (6.3-8.2)
[2016-11-10 06:15] LABS: BAND NEUTROPHILS % (MANUAL) 2 % (3-5); BASOPHILS % (MANUAL) 0 % (0-2); EOSINOPHILS % (MANUAL) 0 % (0-6); LYMPHOCYTES % (MANUAL) 1 % (13-45); TOTAL CELLS COUNTED 100
[2016-11-10 06:17] LABS: ANISOCYTOSIS 1+; POIKILOCYTOSIS SLIGHT; POLYCHROMASIA SLIGHT; TEAR DROP CELLS SLIGHT; TOXIC GRANULATION 1+
[2016-11-10] MEDS: TOBRAMYCIN SULFATE NEB 40 MG/ML 30 ML NEB SCH (07:44)
[2016-11-10] MEDS: PANTOPRAZOLE SODIUM 40 MG VIAL IV SCH (09:40)
[2016-11-10] MEDS: THIAMINE HCL 100 MG TABLET PO SCH (09:40)
[2016-11-10 10:43] VITALS: BP 139/73
--- NOTE | 2016-11-10 17:52 | PDOC PROGRESS REPORT ---
Subjective Progress Note for:: 11/10/16 Subjective:: This is a follow-up visit for consult for medical management. The patient was seen at the bedside today. He has no complaints. He has been told that he will be discharged today. No acute events overnight. Physical Exam Vital Signs: Temp Pulse Resp BP Pulse Ox 98.6 F 70 23 H 150/73 H 95 11/10/16 04:00 11/10/16 02:35 11/10/16 06:00 11/10/16 05:38 11/10/16 06:00 Intake & Output 11/09/16 11/10/16 11/11/16 06:59 06:59 06:59 Intake Total 2424 2629 Output Total 650 3035 Balance 1774 -406 Weight 61.3 kg 64 kg GENERAL: Well-developed thin frail-appearing elderly white male resting in bed currently in no acute distress texting on his phone. HEART: Regular rate and rhythm. ?murmur. No gallops or rubs. LUNGS: Coarse breath sounds at the bases with equal rise and fall of the chest. ABDOMEN: Soft, nontender, nondistended with hypoactive bowel sounds. Incision site looks good soha are in place and are clean dry and intact EXTREMETIES: No clubbing, cyanosis or edema. 2+ peripheral pulses bilaterally. NEURO: [Awake, alert oriented x3. Cranial nerves are grossly intact. Results Laboratory Results: 11/10/16 04:55 11/10/16 04:55 11/10/16 11/10/16 04:55 04:55 WBC 17.4 H RBC 2.86 L Hgb 9.7 L Hct 29.2 L MCV 102 H MCH 34.1 H MCHC 33.4 RDW 17.6 H Plt Count 174 Seg Neutrophils % Not Reportable Lymphocytes % Not Reportable Monocytes % Not Reportable Eosinophils % Not Reportable Basophils % Not Reportable Absolute Neutrophils Not Reportable Absolute Lymphocytes Not Reportable Absolute Monocytes Not Reportable Absolute Eosinophils Not Reportable Absolute Basophils Not Reportable Sodium 132.9 L Potassium 3.9 Chloride 103 Carbon Dioxide 24 Anion Gap 6 BUN 14 Creatinine 0.40 L Est GFR ( Amer) > 60 Est GFR (Non-Af Amer) > 60 Glucose 129 H Calcium 8.4 Magnesium 1.8 Total Bilirubin 0.5 AST 31 ALT 40 Alkaline Phosphatase 54 Total Protein 4.7 L Albumin 2.7 L Impressions: Abdomen/Pelvis CT 11/02/16 00:00 IMPRESSION: 1. FREE AIR AND FREE FLUID IN THE ABDOMEN CONSISTENT WITH A PERFORATED VISCUS. NO OBVIOUS SOURCE APPARENT. NO OTHER SIGNIFICANT FINDINGS IN THE ABDOMEN OR PELVIS. 2. MASS IN THE INFRAHILAR RIGHT LUNG SECONDARY TO KNOWN MALIGNANCY. KUB X-Ray 11/02/16 22:00 IMPRESSION: NASOGASTRIC TUBE WITH THE TIP IN THE DISTAL STOMACH. NO RADIOGRAPHIC EVIDENCE FOR ACUTE ABDOMINAL DISEASE. Head CT 11/05/16 00:00 IMPRESSION: No acute intracranial hemorrhage or acute territorial infarct. Interval improvement in the appearance of the brain with decrease in the hypodense mass at the posterior right parietal lobe and non visualization of the previously described masses at the superior right parietal lobe and right cerebellar hemisphere. Upper GI Series 11/07/16 08:36 IMPRESSION: Limited upper GI exam performed portably in the ICU. Prompt gastric emptying. No gross evidence of leakage of oral contrast from the stomach. Thickened gastric antrum folds. Chest X-Ray 11/08/16 06:00 IMPRESSION: No acute radiographic finding in the chest. Assessment & Plan - Diagnosis (1) Respiratory failure requiring intubation Is this a current diagnosis for this admission?: Yes Plan: S/p extubation 11/04/2016. Currently on nightly bilevel Pap. Maintaining O2 sats well. Off of nasal canula O2. (2) Gastric ulcer, acute with perforation Is this a current diagnosis for this admission?: Yes Plan: Post op day 8. 2 bowel movements overnight. Management per primary team. Upper GI series looked good. (3) Hypertension Is this a current diagnosis for this admission?: Yes Plan: As needed hydralazine. Continue to monitor. No home medications for antihypertensives listed. Patient is hypertensive and tachycardic at times. Blood pressures are quite reasonable at this time (4) Lung cancer, primary, with metastasis from lung to other site Is this a current diagnosis for this admission?: Yes Plan: Code status is currently FULL. Known mets to brain. Patient follows at [facility] and has had radiation and chemo. Continue home dose of Decadron at 4 mg twice a day. The patient is currently in the process of being weaned. Continue PPI. Prescription for this was written. (5) Anemia Qualifiers: Anemia type: unspecified type Qualified Code(s): D64.9 - Anemia, unspecified Is this a current diagnosis for this admission?: Yes Plan: Precipitous drop after surgery. Patient's Hgb is now back up to baseline. Continue to monitor (6) COPD (chronic obstructive pulmonary disease) Qualifiers: COPD type: emphysema Plan: continue as needed and scheduled nebs (7) Chronic narcotic dependence Is this a current diagnosis for this admission?: Yes Plan: Patient is receiving dilaudid. He is also on this at home. I do not suspect narcotic withdrawal symptoms as part of his delirium. (8) Delirium Is this a current diagnosis for this admission?: Yes Plan: This is secondary to underlying medical condition and post op status. Resolved (9) Leukocytosis (leucocytosis) Plan: In part reactive to recent perforation and surgery. WBC 19. Patient is also on chronic steroids for brain mets. WBCs are trending up. No fevers. Continue to monitor. (10) Bronchitis Plan: The patient had positive tracheal aspirate for Pseudomonas and Streptococcus pneumoniae. Each were susceptible to Levaquin. Because of his coarse breath sounds, immunosuppressants state and recent surgery he will be treated with Levaquin for the next 10 days. This was discussed with Dr. Coffey. A prescription was provided. - Time Time Spent with patient: 25-34 minutes
== END 2016-11-10 11:59 | disposition home or self-care (01) | DRG 329 ==
LOC: ER 12:05 → UNDOADMIN 18:37 → EH 18:37 → ICU 21:45 → EH 21:45 → ICU 21:56 → EH 21:56
PROVIDERS: ADMIT Surgery; ATTEND Surgery
PROC: 0BH17EZ Insertion of Endotracheal Airway into Trachea, Via Natural or Artificial Opening (ICD-10-PCS; 2016-11-02)
PROC: 5A1945Z Respiratory Ventilation, 24-96 Consecutive Hours (ICD-10-PCS; 2016-11-02)
PROC: 0DU907Z Supplement Duodenum with Autologous Tissue Substitute, Open Approach (ICD-10-PCS; principal; 2016-11-02 19:15)
DX: K28.1 Acute gastrojejunal ulcer with perforation (principal); J96.00 Acute respiratory failure, unspecified whether with hypoxia or hypercapnia; C34.90 Malignant neoplasm of unspecified part of unspecified bronchus or lung; C79.31 Secondary malignant neoplasm of brain; J43.2 Centrilobular emphysema; J40 Bronchitis, not specified as acute or chronic; B96.5 Pseudomonas (aeruginosa) (mallei) (pseudomallei) as the cause of diseases classified elsewhere; B95.3 Streptococcus pneumoniae as the cause of diseases classified elsewhere; D64.9 Anemia, unspecified; I10 Essential (primary) hypertension; E78.00 Pure hypercholesterolemia, unspecified; Z79.899 Other long term (current) drug therapy; Z86.73 Personal history of transient ischemic attack (TIA), and cerebral infarction without residual deficits; F17.210 Nicotine dependence, cigarettes, uncomplicated; Z88.0 Allergy status to penicillin
CPT/HCPCS: 00790; 36415; 70450; 71010; 71020; 74000; 74177; 74247; 80048; 80053; 81001; 82607; 82728; 82746; 82803; 82962; 83540; 83550; 83690; 83735; 84100; 84466; 85025; 85045; 87070; 87077; 87086; 87186; 87205; 93005; 93010; 94002; 94003; 94640; 94660; 96374; 96375; 96376; 99291; J0131; J0330; J0360; J0744; J1100; J1170; J1885; J1940; J2060; J2250; J2270; J2405; J2704; J3010; J3480; J3490; J7030; J7620; J7685; S0164

== ENCOUNTER 2017-02-12 07:49 | Day surgery (SDC) | payer MEDICAID ==
[~2017-02-12 07:49] MED LIST: EPINEPHRINE INJ 1 MG/10 ML DISP.SYRIN ONE; FENTANYL CITRATE INJ/PF 100 MCG/2 ML AMPUL ONE; FLUMAZENIL INJ 0.5 MG/5 ML VIAL ONE; GLUCAGON,HUMAN RECOMB 1 MG INJ ONE; GLYCOPYRROLATE INJ 0.4 MG/2 ML VIAL ONE; NALOXONE HCL INJ/PF 0.4 MG/1 ML SDV ONE; ONDANSETRON HCL INJ/PF 4 MG/2 ML SDV ONE
[2017-02-12] MEDS: MIDAZOLAM 2 MG/2 ML INJ ONE ×3 (08:24→08:35)
[2017-02-12] MEDS: FENTANYL CITRATE INJ/PF 100 MCG/2 ML AMPUL ONE ×3 (08:26→08:35)
--- NOTE | 2017-02-12 08:52 | PDOC DISCHARGE SUMMARY ---
Discharge Summary (SDC) - Discharge Final Diagnosis: 1. History of peptic ulcer disease status post gastric perforation 2. Mild gastritis Date of Surgery: 02/12/17 Discharge Date: 02/12/17 Condition: Good Treatment or Instructions: [facility] [address] [id number] POST ENDOSCOPY DISCHARGE INSTRUCTIONS 1. Diet: Start clear liquids that a regular diet as tolerated. 2. Resume all preoperative medications. All oral anticoagulants and aspirins can be resumed 24 hours after procedure. 3. If a polypectomy was performed some bleeding per rectum may occur. This should stop within 3 days. If not, please contact the office. 4. If you had a colonoscopy you may experience some bloating and delayed return of normal bowel function for several days, your regular bowel movement pattern should resume within a week. 5. Please contact [facility] at to make an appointment with Dr. Gastelum for 1 to 3 weeks following procedure. 6. If you have any questions or concerns regarding your care,treatment plan or follow up, please contact our office. Discharge Diet: As Tolerated Discharge Activity: Activity As Tolerated Home Care Assistance: None Needed Report the Following to Your Physician Immediately: Shortness of Breath, Increase in Pain, Fever over 101 Degrees
--- NOTE | 2017-02-12 08:57 | Operative Report ---
Operative Report DATE OF SURGERY: 02/12/17 PREOPERATIVE DIAGNOSIS: 1. History of gastric operation, presumably ulcer disease. 2. Metastatic lung carcinoma POSTOPERATIVE DIAGNOSIS: Same with mild gastritis only OPERATION: 1. Esophagogastroduodenoscopy with photodocumentation. 2. Biopsy of pyloric channel with cold forceps device SURGEON: ZAFAR MCCORD ANESTHESIA: Moderate Sedation TISSUE REMOVED OR ALTERED: Biopsy COMPLICATIONS: None ESTIMATED BLOOD LOSS: Scant INTRAOPERATIVE FINDINGS: See below PROCEDURE: Patient was taken to the preop area to the endoscopy suite of the floor was placed in the semirecumbent position in the endoscopy suite examination room. Oral mouthpiece was inserted an appropriate level of conscious sedation was induced. Surgical plan surgical timeout were conducted. The flexible adult endoscope was advanced to the patient's oropharynx, down the esophagus into the stomach into the duodenum. This was an excellent study. There is no evidence of retained gastric contents. The duodenum appeared normal. The transition from the stomach to the duodenum was tightly challenging to examine with the scope slowly due to vigorous peristalsis. There was no evidence of tumor stricture bleeding or growth. They have been slight distortion of the mucosa apically and anteriorly and a random biopsy was chosen of this area with the cold forceps device. Bleeding was negligible. Again no evidence of gastric outlet obstruction, or endoscopic evidence of residual; no evidence of tumor. The scope was brought back through into the body the stomach. The stomach was grossly normal. No evidence of varix polyp tumor bleeding. Scope was retroflexed, and a good look at the GE junction revealed no significant hiatal hernia. Scope was straightened and brought through the distal esophagus, midesophagus and proximal esophagus. Again no evidence of stricture bleeding tumor or varix. Patient tolerated the procedure well. Scope was withdrawn to the patient's oropharynx. He was recovered per protocol.
[2017-02-12 09:54] VITALS: BP 110/72
== END 2017-02-12 09:10 | disposition home or self-care (01) ==
LOC: END 07:49
PROVIDERS: ATTEND Surgery
PROC: 0DB68ZX Excision of Stomach, Via Natural or Artificial Opening Endoscopic, Diagnostic (ICD-10-PCS; principal; 2017-02-12 08:15)
DX: K29.50 Unspecified chronic gastritis without bleeding (principal); Z87.11 Personal history of peptic ulcer disease; J34.9 Unspecified disorder of nose and nasal sinuses; G93.9 Disorder of brain, unspecified; I10 Essential (primary) hypertension; D64.9 Anemia, unspecified; D72.89 Other specified disorders of white blood cells; C34.90 Malignant neoplasm of unspecified part of unspecified bronchus or lung; Z86.73 Personal history of transient ischemic attack (TIA), and cerebral infarction without residual deficits; Z79.899 Other long term (current) drug therapy; Z88.0 Allergy status to penicillin
CPT/HCPCS: 43239; 88342 ×2; 88305 ×2; J2250; J3010; J0171; J1610; J2310; J2405; J3490

== ENCOUNTER → 2017-03-22 | Outpatient (CLI) | payer MEDICAID ==
--- NOTE | 2017-03-24 15:31 | RADIOLOGY REPORT (SQ) ---
EXAM DESCRIPTION: PET CT SKULL/THIGH COMPLETED DATE/TIME: 03/22/2017 11:00 pm REASON FOR STUDY: MALIGNANT NEOPLASM OF RIGHT LOWER LOBE C34.31 MALIGNANT NEOPLASM OF LOWER LOBE, R IGHT BRONCHUS OR L COMPARISON: CT abdomen pelvis 11/02/2016 RADIONUCLIDE AND DOSE: 12.8 mCi F18 FDG The route of agent administration: Intravenous FASTING BLOOD SUGAR: 111 mg/dl CONTRAST TYPE AND DOSE: No CT contrast given. TECHNIQUE: Blood glucose level was verified. Above dose of FDG was injected intravenously. 2-D seg mented attenuation correction images were obtained from the base of the skull to the midthighs. Nonc ontrast CT images were obtained for attenuation correction and fusion with emission images. CT image s were performed without oral or intravenous contrast and are not sensitive for parenchymal lesions. A series of overlapping emission PET images were obtained. Images reviewed and manipulated at [facility] work station by the radiologist. Images stored on PACS. LIMITATIONS: None. FINDINGS: HEAD AND NECK: No areas of abnormal metabolic activity in the soft tissues of the head and neck. CHEST: In the right lower lobe medially, a 4.1 x 3.3 cm spiculated mass is present with SUV of 7.8, No other hypermetabolic lung lesions are identified. No mediastinal adenopathy. Highly suspicious f or malignancy. ABDOMEN AND PELVIS: No areas of abnormal metabolic activity in the abdomen or pelvis. Expected physi ologic activity is present in the genitourinary system and bowel. PROXIMAL LOWER EXTREMITIES: No areas of abnormal metabolic activity in the soft tissues of the lower extremities. BONES: No abnormal metabolic activity in the visualized skeleton. ADDITIONAL CT FINDINGS: Obstructive lung disease. Diffuse degenerative changes in the cervical and l umbar spine. Gynecomastia. Colonic diverticuli without CT signs of acute diverticulitis OTHER: Liver background activity 1.4 SUV. Blood pool background activity 0.9 SUV. IMPRESSION: Malignant appearing mass in the right lower lobe. No hilar or mediastinal adenopathy. TECHNICAL DOCUMENTATION: JOB ID: [id number] [employer]- All Rights Reserved
== END ==
LOC: RAD 20:24
PROVIDERS: ATTEND Radiology Radiation Oncology
DX: C34.31 Malignant neoplasm of lower lobe, right bronchus or lung (principal); C77.1 Secondary and unspecified malignant neoplasm of intrathoracic lymph nodes; C79.31 Secondary malignant neoplasm of brain
CPT/HCPCS: 78815; A9552

== ENCOUNTER → 2017-04-20 | Outpatient (CLI) | payer MEDICAID | LOC: LAB 14:53 | PROVIDERS: ATTEND Radiology Radiation Oncology | DX: C34.31 Malignant neoplasm of lower lobe, right bronchus or lung (principal); C77.1 Secondary and unspecified malignant neoplasm of intrathoracic lymph nodes; C79.31 Secondary malignant neoplasm of brain ==

== ENCOUNTER → 2017-04-20 | Outpatient (CLI) | payer MEDICAID ==
[2017-04-20 15:35] LABS: ABSOLUTE EOSINOPHILS # (AUTO) 0.1 10^3/uL (0.0-0.6); ABSOLUTE LYMPHOCYTES (AUTO) 1.6 10^3/uL (0.5-4.7); ABSOLUTE MONOCYTES (AUTO) 0.8 10^3/uL (0.1-1.4); ABSOLUTE NEUT (AUTO) 4.4 10^3/uL (1.7-8.2); BASOPHILS % (AUTO) 0.7 % (0-2); EOSINOPHILS % (AUTO) 1.5 % (0-6); HEMOGLOBIN 11.1 g/dL (13.5-17.0); LYMPHOCYTES % (AUTO) 23.1 % (13-45); MEAN CORPUSCULAR HEMOGLOBIN 25.1 pg (27.0-33.4); MEAN CORPUSCULAR HGB CONC 32.6 g/dL (32.0-36.0); MEAN CORPUSCULAR VOLUME 77 fl (80-97); MONOCYTES % (AUTO) 11.6 % (3-13); PLATELET COUNT 361 10^3/uL (150-450); RED BLOOD COUNT 4.41 10^6/uL (4.35-5.55); RED CELL DISTRIBUTION WIDTH 15.2 % (11.5-14.0); SEGMENTED NEUTROPHILS % (AUTO) 63.1 % (42-78); TOTAL CELLS COUNTED % (AUTO) 100 %; WHITE BLOOD COUNT 6.9 10^3/uL (4.0-10.5)
== END ==
LOC: LAB 15:06
PROVIDERS: ATTEND Radiology Radiation Oncology
DX: C34.31 Malignant neoplasm of lower lobe, right bronchus or lung (principal); C77.1 Secondary and unspecified malignant neoplasm of intrathoracic lymph nodes; C79.31 Secondary malignant neoplasm of brain
CPT/HCPCS: 36415; 85025

== ENCOUNTER → 2017-04-29 | Outpatient (CLI) | payer MEDICAID ==
--- NOTE | 2017-04-29 17:24 | WOMENS IMAGING REPORT ---
EXAM DESCRIPTION: BILAT DIAGNOSTIC MAMMO W/CAD; U/S BREAST UNILATERAL, COMPL COMPLETED DATE/TIME: 04/29/2017 12:41 pm; 04/29/2017 1:44 pm REASON FOR STUDY: UNSPECIFIED LUMP; N63.0; BILATERAL BREAST MASS; N63.0 N63.0 UNSPECIFIED LUMP IN U NSPECIFIED BREAST COMPARISON: PET-CT 03/22/2017 TECHNIQUE: Standard craniocaudal and mediolateral oblique views of each breast recorded using digita l acquisition. Bilateral 90 mediolateral views were obtained. Bilateral male breast ultrasound was performed. LIMITATIONS: None. FINDINGS: RIGHT BREAST MASSES: Dense fibroglandular tissue is present in the right retroareolar region CALCIFICATIONS: No new or suspicious calcifications. ARCHITECTURAL DISTORTION: None. DEVELOPING DENSITY: None. ASYMMETRY: None noted. OTHER: No other significant findings. LEFT BREAST MASSES: Dense fibroglandular tissue is present in the left retroareolar region CALCIFICATIONS: No new or suspicious calcifications. ARCHITECTURAL DISTORTION: None. DEVELOPING DENSITY: None. ASYMMETRY: None noted. OTHER: No other significant finding. Read with the assistance of CAD: .[facility] - R2 Cenova Version 1.3 .[facility] - R2 Cenova Version 1.3 .[facility] - R2 Cenova Version 2.4 .[facility] [place] R2 Cenova Version 2.4 .[facility] - R2 Card Cutter Helper Version 9.2 Bilateral male breast ultrasound: Dense fibroglandular tissue is present in the right and left retroareolar regions. No worrisome acou stic absorption. No right axillary lymph nodes are identified. On the left side, a 1.8 x 0.8 cm lymph node is present. Prior PET-CT was reviewed. AP left axillary lymph node is non metabolic. The patient's gynecomastia is non metabolic. IMPRESSION: Bilateral gynecomastia BREAST DENSITY: d. The breasts are extremely dense, which lowers the sensitivity of mammography. BIRAD: 2 Benign findings. RECOMMENDATION: RECOMMENDED FOLLOW UP: Clinical followup for bilateral gynecomastia. SPECIFIC INTERVENTION/IMAGING/CONSULTATION RECOMMENDED:No additional intervention/ imaging/consultati on needed at this time. COMMUNICATION:Patient notified by letter COMMENT: The patient has been notified of the results by letter per MQSA requirements. Additional no tification policies are in place for contacting patient with suspicious or incomplete findings. Quality ID #225: The [employer] recommends an annual screening mammogram for women aged 40 years or over. This facility utilizes a reminder system to ensure that all patients receive reminder letters, and/or direct phone calls for appointments. This includes reminders for routine scr eening mammograms, diagnostic mammograms, or other Breast Imaging Interventions when appropriate. Th is patient will be placed in the appropriate reminder system. The [employer] (ACR) has developed recommendations for screening MRI of the breast s in certain patient populations, to be used in conjunction with mammography. Breast MRI surveillanc e may be appropriate for women with more than 20% lifetime risk of developing breast cancer as deter mined by genetic testing, significant family history of the disease, or history of mantle radiation f or Hodgkins Disease. ACR Practice Guidelines 2008. TECHNICAL DOCUMENTATION: FINDING NUMBER: (1) ASSESSMENT: (1) JOB ID: [id number] [employer]- All Rights Reserved Reading location - IP/workstation name: [email or web address]
--- NOTE | 2017-04-29 17:24 | WOMENS IMAGING REPORT ---
EXAM DESCRIPTION: BILAT DIAGNOSTIC MAMMO W/CAD; U/S BREAST UNILATERAL, COMPL COMPLETED DATE/TIME: 04/29/2017 12:41 pm; 04/29/2017 1:44 pm REASON FOR STUDY: UNSPECIFIED LUMP; N63.0; BILATERAL BREAST MASS; N63.0 N63.0 UNSPECIFIED LUMP IN U NSPECIFIED BREAST COMPARISON: PET-CT 03/22/2017 TECHNIQUE: Standard craniocaudal and mediolateral oblique views of each breast recorded using digita l acquisition. Bilateral 90 mediolateral views were obtained. Bilateral male breast ultrasound was performed. LIMITATIONS: None. FINDINGS: RIGHT BREAST MASSES: Dense fibroglandular tissue is present in the right retroareolar region CALCIFICATIONS: No new or suspicious calcifications. ARCHITECTURAL DISTORTION: None. DEVELOPING DENSITY: None. ASYMMETRY: None noted. OTHER: No other significant findings. LEFT BREAST MASSES: Dense fibroglandular tissue is present in the left retroareolar region CALCIFICATIONS: No new or suspicious calcifications. ARCHITECTURAL DISTORTION: None. DEVELOPING DENSITY: None. ASYMMETRY: None noted. OTHER: No other significant finding. Read with the assistance of CAD: .[facility] - R2 Cenova Version 1.3 .[facility] Imaging - R2 Cenova Version 1.3 .[facility] - R2 Cenova Version 2.4 .[facility] [place]2 Cenova Version 2.4 .[facility] - R2 Densitometrist Version 9.2 Bilateral male breast ultrasound: Dense fibroglandular tissue is present in the right and left retroareolar regions. No worrisome acou stic absorption. No right axillary lymph nodes are identified. On the left side, a 1.8 x 0.8 cm lymph node is present. Prior PET-CT was reviewed. AP left axillary lymph node is non metabolic. The patient's gynecomastia is non metabolic. IMPRESSION: Bilateral gynecomastia BREAST DENSITY: d. The breasts are extremely dense, which lowers the sensitivity of mammography. BIRAD: 2 Benign findings. RECOMMENDATION: RECOMMENDED FOLLOW UP: Clinical followup for bilateral gynecomastia. SPECIFIC INTERVENTION/IMAGING/CONSULTATION RECOMMENDED:No additional intervention/ imaging/consultati on needed at this time. COMMUNICATION:Patient notified by letter COMMENT: The patient has been notified of the results by letter per MQSA requirements. Additional no tification policies are in place for contacting patient with suspicious or incomplete findings. Quality ID #[id number]: The [employer] recommends an annual screening mammogram for women aged 40 years or over. This facility utilizes a reminder system to ensure that all patients receive reminder letters, and/or direct phone calls for appointments. This includes reminders for routine scr eening mammograms, diagnostic mammograms, or other Breast Imaging Interventions when appropriate. Th is patient will be placed in the appropriate reminder system. The [employer] (ACR) has developed recommendations for screening MRI of the breast s in certain patient populations, to be used in conjunction with mammography. Breast MRI surveillanc e may be appropriate for women with more than 20% lifetime risk of developing breast cancer as deter mined by genetic testing, significant family history of the disease, or history of mantle radiation f or Hodgkins Disease. ACR Practice Guidelines 2008. TECHNICAL DOCUMENTATION: FINDING NUMBER: (1) ASSESSMENT: (1) JOB ID: [id number] [employer]- All Rights Reserved Reading location - IP/workstation name: [email or web address]
--- NOTE | 2017-04-29 17:24 | WOMENS IMAGING REPORT ---
EXAM DESCRIPTION: BILAT DIAGNOSTIC MAMMO W/CAD; U/S BREAST UNILATERAL, COMPL COMPLETED DATE/TIME: 04/29/2017 12:41 pm; 04/29/2017 1:44 pm REASON FOR STUDY: UNSPECIFIED LUMP; N63.0; BILATERAL BREAST MASS; N63.0 N63.0 UNSPECIFIED LUMP IN U NSPECIFIED BREAST COMPARISON: PET-CT 03/22/2017 TECHNIQUE: Standard craniocaudal and mediolateral oblique views of each breast recorded using digita l acquisition. Bilateral 90 mediolateral views were obtained. Bilateral male breast ultrasound was performed. LIMITATIONS: None. FINDINGS: RIGHT BREAST MASSES: Dense fibroglandular tissue is present in the right retroareolar region CALCIFICATIONS: No new or suspicious calcifications. ARCHITECTURAL DISTORTION: None. DEVELOPING DENSITY: None. ASYMMETRY: None noted. OTHER: No other significant findings. LEFT BREAST MASSES: Dense fibroglandular tissue is present in the left retroareolar region CALCIFICATIONS: No new or suspicious calcifications. ARCHITECTURAL DISTORTION: None. DEVELOPING DENSITY: None. ASYMMETRY: None noted. OTHER: No other significant finding. Read with the assistance of CAD: .[facility] - R2 Cenova Version 1.3 .[facility] - R2 Cenova Version 1.3 .[facility] - R2 Cenova Version 2.4 .[facility] [place] - R2 Cenova Version 2.4 .[facility] - R2 [employer] Captain Version 9.2 Bilateral male breast ultrasound: Dense fibroglandular tissue is present in the right and left retroareolar regions. No worrisome acou stic absorption. No right axillary lymph nodes are identified. On the left side, a 1.8 x 0.8 cm lymph node is present. Prior PET-CT was reviewed. AP left axillary lymph node is non metabolic. The patient's gynecomastia is non metabolic. IMPRESSION: Bilateral gynecomastia BREAST DENSITY: d. The breasts are extremely dense, which lowers the sensitivity of mammography. BIRAD: 2 Benign findings. RECOMMENDATION: RECOMMENDED FOLLOW UP: Clinical followup for bilateral gynecomastia. SPECIFIC INTERVENTION/IMAGING/CONSULTATION RECOMMENDED:No additional intervention/ imaging/consultati on needed at this time. COMMUNICATION:Patient notified by letter COMMENT: The patient has been notified of the results by letter per MQSA requirements. Additional no tification policies are in place for contacting patient with suspicious or incomplete findings. Quality ID #[id number]: The [employer] recommends an annual screening mammogram for women aged 40 years or over. This facility utilizes a reminder system to ensure that all patients receive reminder letters, and/or direct phone calls for appointments. This includes reminders for routine scr eening mammograms, diagnostic mammograms, or other Breast Imaging Interventions when appropriate. Th is patient will be placed in the appropriate reminder system. The [employer] (ACR) has developed recommendations for screening MRI of the breast s in certain patient populations, to be used in conjunction with mammography. Breast MRI surveillanc e may be appropriate for women with more than 20% lifetime risk of developing breast cancer as deter mined by genetic testing, significant family history of the disease, or history of mantle radiation f or Hodgkins Disease. ACR Practice Guidelines 2008. TECHNICAL DOCUMENTATION: FINDING NUMBER: (1) ASSESSMENT: (1) JOB ID: [id number] [employer]- All Rights Reserved Reading location - IP/workstation name: [email or web address]
== END ==
LOC: WI 12:24
PROVIDERS: ATTEND Radiology Radiation Oncology
DX: N63.20 Unspecified lump in the left breast, unspecified quadrant (principal); N63.10 Unspecified lump in the right breast, unspecified quadrant
CPT/HCPCS: 76641; 77066

== ENCOUNTER 2017-07-28 11:27 | Emergency (ER) | payer OTHER, MEDICAID ==
[2017-07-28 11:33] VITALS: BP 117/79
[2017-07-28] MEDS ORDERED: HYDROCODONE/ACETAMINOPHEN 5-325 MG (6 TAB/ER DISP) PO PRN (11:56)
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
--- NOTE | 2017-07-28 12:39 | RADIOLOGY REPORT (SQ) ---
EXAM DESCRIPTION: SHOULDER RIGHT 2 OR MORE VIEWS COMPLETED DATE/TIME: 07/28/2017 12:07 pm REASON FOR STUDY: rt shoulder pain COMPARISON: None. NUMBER OF VIEWS: Three views. TECHNIQUE: Internal rotation, external rotation, and Y view images acquired of the right shoulder. LIMITATIONS: None. FINDINGS: MINERALIZATION: Normal. BONES: No acute fracture or dislocation. No worrisome bone lesions. Small osteophytes. GLENOHUMERAL JOINT: Small osteophytes. ACROMIOCLAVICULAR JOINT: Small osteophytes. SOFT TISSUES: No calcifications. VISUALIZED RIBS, SPINE, AND LUNG: No other significant finding. OTHER: No other significant finding. IMPRESSION: MILD DEGENERATIVE CHANGES. NO ACUTE FINDINGS. TECHNICAL DOCUMENTATION: JOB ID: [id number] [employer]- All Rights Reserved Reading location - IP/workstation name: [email or web address]
== END 2017-07-28 12:56 | disposition home or self-care (01) ==
LOC: ER 11:27
DX: M25.511 Pain in right shoulder (principal); V49.9XXA Car occupant (driver) (passenger) injured in unspecified traffic accident, initial encounter; G89.29 Other chronic pain; F17.200 Nicotine dependence, unspecified, uncomplicated; I10 Essential (primary) hypertension; J44.9 Chronic obstructive pulmonary disease, unspecified; Z86.73 Personal history of transient ischemic attack (TIA), and cerebral infarction without residual deficits; Z85.118 Personal history of other malignant neoplasm of bronchus and lung; Z85.841 Personal history of malignant neoplasm of brain
CPT/HCPCS: 99283

== ENCOUNTER → 2017-08-08 | Outpatient (CLI) | payer MEDICAID ==
--- NOTE | 2017-08-08 12:39 | RADIOLOGY REPORT (SQ) ---
EXAM DESCRIPTION: MRI RT UPPER JOINT WITHOUT COMPLETED DATE/TIME: 08/08/2017 11:52 am REASON FOR STUDY: COMPLETE ROTATOR CUFF TEAR OR RUPTURE OF RIGHT SHOULDER M75.121 COMPLETE ROTATR-C UFF TEAR/RUPTR OF R SHOULDER, NOT T COMPARISON: 07/28/2017. 03/22/2017 PET-CT. TECHNIQUE: Right shoulder images acquired and stored on PACS. Multiplanar imaging to include fat sen sitive sequences such as T1, water sensitive sequences such as FST2/STIR, cartilage sensitive sequenc es such as FSPD/gradient-echo sequences. LIMITATIONS: Motion artifact on axial sequences. With rescanning, better quality images are obtaine d. Overall generally good quality study. FINDINGS: BONE MARROW AND CORTEX: The upper scapula is abnormal. There is a lytic expansile lesion which likely measures over 4 cm. Likely a metastatic lesion given the history of lung malignancy. T his lesion looks new compared to the PET-CT from March. JOINT OR BURSAL EFFUSION: No significant joint or bursal fluid. No suggestion of loose bodies. GLENO-HUMERAL ARTICULATION: Mild chondral thinning without focal defects or significant reactive bone changes. ACROMION AND AC JOINT: Mild degenerative overgrowth. Subacromial space relatively preserved. ROTATOR CUFF AND INTERVAL: Thickening and tendinosis predominantly in the cuff. Mild focus of intras ubstance tear along supraspinatus insertion. Prominent small cysts and edema underlying cuff inserti on relatively diffusely. LABRUM AND BICEPS LABRAL COMPLEX: Heterogeneous anchor, likely torn. Biceps tendon looks intact, h owever. REMAINDER OF LABRUM AND IGHL : Limited assessment without joint distention and given motion. No seco ndary signs of significant labral tear. PERIARTICULAR AND ADJACENT SOFT TISSUES: Potential axillary adenopathy, incompletely assessed. OTHER: No other significant finding. IMPRESSION: 1. Presumed metastatic focus in the upper aspect of the scapula, new since PET-CT from March. 2. Cuff tendinosis and minimal partial tear. No high-grade partial or full-thickness tear, however. 3. Other findings as above. This includes likely SLAP tear without biceps propagation. TECHNICAL DOCUMENTATION: JOB ID: [id number] [employer]- All Rights Reserved Reading location - IP/workstation name: [email or web address]
== END ==
LOC: RAD 10:56
PROVIDERS: ATTEND Orthopaedic Surgery
DX: M75.121 Complete rotator cuff tear or rupture of right shoulder, not specified as traumatic (principal)

== ENCOUNTER 2018-02-15 16:55 | Emergency (ER) | payer MEDICAID ==
--- NOTE | 2018-02-15 18:36 | ER Document Report ---
ED Fall - General Chief Complaint: Fall Injury Stated Complaint: FALL/RIGHT SHOULDER, ARM PAIN Time Seen by Provider: 02/15/18 18:03 Mode of Arrival: Wheelchair Information source: Patient, Friend Notes: 62-year-old male presents to ED for fall with head and right shoulder pain. 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 He lives by himself. He is on hospice. He does have a hospice nurse that comes and sees him. He fell does not know if he lost consciousness. His friend came in this morning and found him at 9:00 laying and then the floor. Patient refused to come to the hospital at that time but then later his pain got worse so he wanted to come to the hospital so they brought him. He is on Dilaudid and morphine for his chronic cancer pain. TRAVEL OUTSIDE OF THE [place] IN LAST 30 DAYS: No - HPI Occurred: This morning Where: Home Context: Slipped Associated symptoms: Other - Patient is a cancer patient and states he does not know if he lost consciousness or not he was on the bathroom floor when his friend came to see him and found him on the floor. Patient states he did hit his head and there was an abrasion to his right forehead Location of injury/pain: Face, Head, Shoulder - Right shoulder Quality of pain: Sharp, Throbbing Severity: Moderate Pain Level: 4 - Related data Allergies/Adverse Reactions: Penicillins Allergy (Unknown, Verified 02/12/17 08:06) Hives Past Medical History - General Information source: Patient, Friend - Social History Smoking Status: Current Every Day Smoker - Half pack a day Cigarette use (# per day): Yes - Half a pack per day Smoking Education Provided: Yes - 4 minutes Frequency of alcohol use: None Drug Abuse: None Lives with: Alone Family History: Reviewed & Not Pertinent Patient has suicidal ideation: No Patient has homicidal ideation: No - Past Medical History Cardiac Medical History: Reports: Hx Hypercholesterolemia, Hx Hypertension Pulmonary Medical History: Reports: Hx COPD, Hx Pneumonia EENT Medical History: Reports: None Neurological Medical History: Reports: Hx Cerebrovascular Accident - With residual R-sided "muscle cramps" upper and lower extremities Endocrine Medical History: Reports: None Renal/ Medical History: Reports: None. Denies: Hx Peritoneal Dialysis Malignancy Medical History: Reports Hx Lung Cancer - With metastases to brain and bone. 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 Skin Medical History: Reports None Psychiatric Medical History: Reports: Hx Depression Infectious Medical History: Reports: None Past Surgical History: Reports: Hx Abdominal Surgery - Immunizations Hx Diphtheria, Pertussis, Tetanus Vaccination: No Review of Systems - Review of Systems EENT: Other - Pain to the right forehead Cardiovascular: No symptoms reported Respiratory: No symptoms reported Gastrointestinal: No symptoms reported Genitourinary: No symptoms reported Male Genitourinary: No symptoms reported Musculoskeletal: Other - Into the right forehead and right shoulder Skin: Other - Abrasions to the right forehead and right shoulder Hematologic/Lymphatic: Easy bruising Neurological/Psychological: Confusion, Depression, Headaches Physical Exam - Vital signs Vitals: Temp Pulse Resp BP Pulse Ox 98.5 F 91 18 110/77 94 02/15/18 17:01 02/15/18 17:01 02/15/18 17:01 02/15/18 17:01 02/15/18 17:01 Interpretation: Normal - General General appearance: Appears well, Alert - HEENT Head: Abrasions, Ecchymosis, Tenderness Eyes: Normal Pupils: PERRL Ears: Normal External canal: Normal Tympanic membrane: Normal Sinus: Normal Nasal: Normal - Respiratory Respiratory status: No respiratory distress Chest status: Nontender Breath sounds: Normal Chest palpation: Normal - Cardiovascular Rhythm: Regular Heart sounds: Normal auscultation Murmur: No - Abdominal Inspection: Normal Distension: No distension Bowel sounds: Normal Tenderness: Nontender Organomegaly: No organomegaly - Back Back: Normal, Nontender - Extremities General upper extremity: Normal temperature General lower extremity: Normal inspection, Nontender, Normal color, Normal ROM , Normal temperature, Normal weight bearing. No: Katja's sign Shoulder: Tender, Abrasion, Ecchymosis, Limited ROM Arm: Ecchymosis Elbow: Normal, Nontender Forearm: Normal, Nontender Wrist: Normal, Nontender Hand: Normal, Nontender - Neurological Neuro grossly intact: Yes Cognition: Normal Orientation: AAOx4 [place] Coma Scale Eye Opening: Spontaneous Pipe Coma Scale Verbal: Oriented [place] Coma Scale Motor: Obeys Commands [place] Coma Scale Total: 15 Speech: Normal Motor strength normal: LUE, RUE, LLE, RLE Sensory: Normal - Psychological Associated symptoms: Normal affect, Normal mood - Skin Skin Temperature: Warm Skin Moisture: Dry Skin Color: Normal, Ecchymosis - Right forehead right shoulder as well as abrasions Course - Re-evaluation Re-evalutation: 02/15/18 22:23 Discussed CAT scan and x-ray with patient and friend. Written report of x-ray given to patient for follow-up with primary doctor and oncologist. Patient instructed to go home take his narcotics he is already prescribed. Patient was offered a sling but refused. Patient was able to walk 5 feet before discharge. He states he has a cane and uses the kaplan to move around at home. - Vital Signs Vital signs: Temp Pulse Resp BP Pulse Ox 98.4 F 90 20 131/88 H 94 02/15/18 19:25 02/15/18 19:25 02/15/18 19:25 02/15/18 19:25 02/15/18 19:25 - Diagnostic Test Radiology reviewed: Image reviewed, Reports reviewed Discharge - Discharge Clinical Impression: Contusion of right shoulder Qualifiers: Encounter type: initial encounter Qualified Code(s): S40.011A - Contusion of right shoulder, initial encounter Fall Qualifiers: Encounter type: initial encounter Qualified Code(s): W19.XXXA - Unspecified fall, initial encounter Head injury Qualifiers: Encounter type: initial encounter Qualified Code(s): S09.90XA - Unspecified injury of head, initial encounter Condition: Stable Disposition: HOME, SELF-CARE Instructions: Family Physicians / Practices Additional Instructions: HEAD INJURY PRECAUTIONS: At this point, there is no evidence that your head injury is serious. Observation is necessary, however. Take only clear liquids for the first few hours, unless told otherwise by the doctor. If no pain medication was prescribed, you may take acetaminophen according to the directions on the bottle. Do not take any medication that may alter your level of alertness (unless you've discussed it with the doctor first) . Limit activity for the first 24 hours. Bed rest is best. During the first 24 hours, check to see approximately every two to three hours that the patient is easily arousable, responds normally, and can perform common tasks such as walking without difficulty. Contact your doctor or go to the hospital if any of the following things occur: Persistent vomiting, difficulty in arousing the patient, worsening or continued headache, or failure to improve as expected. Head injuries can cause symptoms that persist for a few days or even a few weeks. MUSCLE STRAIN: You have strained a muscle -- torn the fibers within the muscle. This often occurs with strenuous exertion, or during an injury that suddenly stretches the muscle. The seriousness of a strain varies. Some strains heal within days, others cause problems for months. X-rays cannot show a muscle strain. X-rays are taken only if symptoms suggest that a fracture could be present. The usual treatment of a muscle strain is rest and ice packs. Sometimes, a sling, splint, or crutches may be necessary to rest the muscle. The muscle can be used again once pain subsides. Severe strains require a special exercise and stretching program to prevent permanent stiffness and disability. Your doctor will advise you if this will be necessary. Call the doctor immediately if pain or swelling becomes severe, or if numbness or discoloration develop. CONTUSION: Your injury has resulted in a contusion -- a crushing of the deep tissues. No injury to important structures was detected during the physician's exam. Contusions vary in the amount of pain they cause, and in the length of time required for healing. Typically, the area will become bruised, and will remain painful to touch for two or three weeks. However, most patients are back to working and playing within a few days. After the initial period of rest and cold-packs, your symptoms (together with the doctor's recommendations) will determine how rapidly you can get back to full activity. Usually this means "do what feels okay, but don't do things that hurt." If re-examination was recommended, it's important to follow up as instructed. Call the doctor or return any time if pain increases, if swelling becomes severe, if you develop numbness or weakness in an injured extremity, or if any other alarming symptoms occur. ABRASIONS: An abrasion is a scraping injury of the skin. Some scarring may result. The seriousness of an abrasion is not always obvious at first. Hidden tissue damage may be present and infection may occur despite proper care. Complete healing may take from ten days to as long as a month. The healing time depends on the depth of the abrasion, and on the amount of crushing of underlying tissues from the injury. Keep the wound and dressing clean. Do not shower or bathe the area until okayed by the doctor. If the dressing gets wet, remove it and blot the wound dry, then reapply a clean dressing. Dressings should be changed every day. Sunscreen should be used for six months after the skin is healed. If any signs of infection occur (swelling, redness, increasing tenderness, red streaks, profuse purulent drainage from the abrasion, tender lumps in the armpit or groin above the abrasion, or fever), see the doctor immediately. USE OF TYLENOL (ACETAMINOPHEN): Acetaminophen may be taken for pain relief or fever control. It's much safer than aspirin, offering a wider range of "safe" dosages. It is safe during . Some brand names are Tylenol, Panadol, Datril, Anacin 3, Tempra, and Liquiprin. Acetaminophen can be repeated every four hours. The following are maximum recommended dosages: WEIGHT Dose Drops Elixir Chewable( 80mg) (LBS.) drprs=droppers tsp=teaspoon 6 40 mg 0.4 ml (1/2) 6-11 80 mg 0.8 ml (full) tsp 1 tab 12-16 120 mg 1 1/2 drprs 3/4 tsp 1 1/2 tabs 17-23 160 mg 2 drprs 1 tsp 2 tabs 24-30 240 mg 3 drprs 1 1/2 tsp 3 tabs 30-35 320 mg 2 tsp 4 tabs 36-41 360 mg 2 1/4 tsp 4 1/2 tabs 42-47 400 mg 2 1/2 tsp 5 tabs 48-53 480 mg 3 tsp 6 tabs 54-59 520 mg 3 1/4 tsp 6 1/2 tabs 60-64 560 mg 3 1/2 tsp 7 tabs 65-70 600 mg 3 3/4 tsp 7 1/2 tabs 71-76 640 mg 4 tsp 8 tabs 77-82 720 mg 4 1/2 tsp 9 tabs 83-88 800 mg 5 tsp 10 tabs >89 pounds or adults 650 mg to 900 mg Acetaminophen can be repeated every four hours. Maximum dose not to exceed 4000 mg a day. These maximum recommended dosages are slightly higher than the dosages written on the product container, but these dosages are very safe and below the toxic dosage for acetaminophen. ICE PACKS: Apply ice packs frequently against the painful area. Many different schedules are recommended, such as "20 minutes on, 20 minutes off" or "one hour ice, two hours rest." If you need to work, you may need to go longer between ice treatments. You should plan to have the area ice packed AT LEAST one fourth of the time. The ice should be applied over the wrap, tape, or splint, or over a layer of cloth -- not directly against the skin. Some ice bags have a built-in cloth and can be put directly on the skin. WARM PACKS: After approximately two days, apply gentle heat (such as a heating pad or hot water bottle) for about 20 to 30 minutes about every two hours -- at least four times daily. Warmth and elevation will help you make a more rapid recovery , and will ease the pain considerably. Do not use HOT heat, and never apply heat for longer than 30 minutes. The continuous heat can invisibly damage skin and muscles -- even when no burn is seen on the surface. Damaged muscles can make you MORE sore. Continue all of your current medications. Please call your primary care doctor tomorrow to schedule a follow-up visit for this fall. Your head CT and your shoulder x-ray did not show any acute changes. FOLLOW-UP CARE: If you have been referred to a physician for follow-up care, call the physician s office for an appointment as you were instructed or within the next two days. If you experience worsening or a significant change in your symptoms, notify the physician immediately or return to the Emergency Department at any time for re-evaluation. Referrals: LUCA HEWITT MD [ACTIVE STAFF] - Follow up as needed
--- NOTE | 2018-02-15 19:02 | RADIOLOGY REPORT (SQ) ---
EXAM DESCRIPTION: SHOULDER RIGHT 2 OR MORE VIEWS COMPLETED DATE/TIME: 02/15/2018 6:53 pm REASON FOR STUDY: Fall, with headache and right shoulder pain COMPARISON: 07/28/2017. NUMBER OF VIEWS: Three views. TECHNIQUE: Internal rotation, external rotation, and Y view images acquired of the right shoulder. LIMITATIONS: None. FINDINGS: MINERALIZATION: Normal. BONES: No acute fracture or dislocation. Degenerative changes with osteophytes. No worrisome bone l esions. JOINTS: No dislocation. VISUALIZED LUNGS AND RIBS: No pneumothorax. No rib fracture. SOFT TISSUES: No radiopaque foreign body. OTHER: No other significant finding. IMPRESSION: DEGENERATIVE CHANGES. NO RADIOGRAPHIC EVIDENCE OF ACUTE INJURY. TECHNICAL DOCUMENTATION: JOB ID: [id number] [employer]- All Rights Reserved Reading location - IP/workstation name: [email or web address]
--- NOTE | 2018-02-15 19:06 | RADIOLOGY REPORT (SQ) ---
EXAM DESCRIPTION: CT HEAD WITHOUT COMPLETED DATE/TIME: 02/15/2018 6:57 pm REASON FOR STUDY: Fall, with headache and right shoulder pain COMPARISON: 11/05/2016. TECHNIQUE: Axial images acquired through the brain without intravenous contrast. Images reviewed wi th bone, brain and subdural windows. Additional sagittal and coronal reconstructions were generated. Images stored on PACS. All CT scanners at this facility use dose modulation, iterative reconstruction, and/or weight based d osing when appropriate to reduce radiation dose to as low as reasonably achievable (ALARA). [facility]: Dose Right [facility]: CareDose [facility]: Dose Right [facility]: Teradose 4D [facility]: Smart [employer] RADIATION DOSE: CT Rad equipment meets quality standard of care and radiation dose reduction techniq ues were employed. CTDIvol: 48.6 mGy. DLP: 904 mGy-cm.mGy. LIMITATIONS: None. FINDINGS: VENTRICLES: Prominent. CEREBRUM: No masses. No hemorrhage. No midline shift. Areas of low density in the white matter mos t likely due to chronic micro-vascular ischemic change. No evidence for acute infarction. CEREBELLUM: No masses. No hemorrhage. No alteration of density. No evidence for acute infarction. EXTRAAXIAL SPACES: Age-related involutional change. No fluid collections. No masses. ORBITS AND GLOBE: No intra- or extraconal masses. Normal contour of globe without masses. CALVARIUM: No fracture. PARANASAL SINUSES: No fluid or mucosal thickening. SOFT TISSUES: No mass or hematoma. OTHER: No other significant finding. IMPRESSION: CHRONIC CHANGES OF ATROPHY AND MICROVASCULAR ISCHEMIA. NO ACUTE PROCESS. EVIDENCE OF ACUTE STROKE: NO. TECHNICAL DOCUMENTATION: JOB ID: [id number] Quality ID # [id number]: Final reports with documentation of one or more dose reduction techniques (e.g., Au tomated exposure control, adjustment of the mA and/or kV according to patient size, use of iterative reconstruction technique) 2010 [employer]- All Rights Reserved Reading location - IP/workstation name: [email or web address]
[2018-02-15 19:31] VITALS: BP 131/88
== END 2018-02-15 19:38 | disposition home or self-care (01) ==
LOC: ER 16:55
DX: S40.011A Contusion of right shoulder, initial encounter (principal); S09.90XA Unspecified injury of head, initial encounter; M25.511 Pain in right shoulder; C34.90 Malignant neoplasm of unspecified part of unspecified bronchus or lung; C79.31 Secondary malignant neoplasm of brain; C79.51 Secondary malignant neoplasm of bone; W18.30XA Fall on same level, unspecified, initial encounter; Y92.009 Unspecified place in unspecified non-institutional (private) residence as the place of occurrence of the external cause; F17.210 Nicotine dependence, cigarettes, uncomplicated; E78.00 Pure hypercholesterolemia, unspecified; I10 Essential (primary) hypertension
CPT/HCPCS: 70450; 99284